=== PATIENT | female | born 1970 | race Caucasian/White ===

== ENCOUNTER 2024-02-09 14:12 | Emergency (ER) | payer OTHER, SELFPAY ==
[2024-02-09] VITALS (13 sets, daily range): BP systolic 140–153; BP diastolic 70–91; PULSE 75–85; RESP 16–18; TEMP 36.4; O2SAT 68–100
--- NOTE | ~2024-02-09 | CT_ITS ---
EXAMINATION: CT foot LT wo con DATE: 02/09/2024 16:24 INDICATION: Left foot injury. TECHNIQUE: Computed tomography (CT) of the left foot was performed without intravenous contrast. Auto mated exposure control and iterative reconstruction technique were employed. The dose-length product was 447.04 mGy-cm. COMPARISON: Left foot radiographs 02/09/2024 FINDINGS: Bone alignment is normal. There is a nondisplaced transverse fracture of tuft of first dist al phalanx. There is a nondisplaced oblique fracture of second distal phalanx. There is severe osteoa rthritis of first and second tarsometatarsal joints and moderate osteoarthritis of third tarsometatar federica joint. There is severe osteoarthritis of calcaneal cuboid joint. There is moderate osteoarthritis of the ankle joint and talonavicular joint and mild osteoarthritis of many of the midfoot joints and interphalangeal joints. There are enthesophytes at the posterior and plantar aspects of calcaneal tu berosity. There are dystrophic calcifications about the ankle joint. There are foci of chronic hetero topic ossification distal to medial malleolus. IMPRESSION: 1. Nondisplaced transverse fracture of tuft of first distal phalanx. 2. Nondisplaced oblique fracture of second distal phalanx. 3. Polyarticular osteoarthritis. Reviewed, dictated and finalized at location A.
--- NOTE | ~2024-02-09 | XR_ITS ---
EXAMINATION: XR ankle LT min 3V, XR foot LT min 3V DATE: 02/09/2024 14:42 INDICATION: Crushing injury to the left foot and ankle TECHNIQUE: 1. Anteroposterior, mortise, additional oblique and lateral view of the left ankle were obtained. 2. Dorsoplantar, two oblique and lateral views of the left foot were obtained. COMPARISON: None. FINDINGS: Alignment of the left foot and ankle is normal. No fracture. Minimal to mild osteoarthritis at a few of the tarsal metatarsal, metatarsophalangeal and interphalangeal joints. No erosions. Moderate-sized Achilles and plantar calcaneal spurs. Additional small enthesophyte at the dorsal neck the talus. No ankle joint effusion. The soft tissues are unremarkable. IMPRESSION: 1. Moderate-sized posterior calcaneal enthesophytes and minimal to mild polyarticular osteoarthritis in the left mid and forefoot. No acute osseous abnormality. Reviewed, dictated and finalized at location A. IMPRESSION: 1. Moderate-sized posterior calcaneal enthesophytes and minimal to mild polyart icular osteoarthritis in the left mid and forefoot. No acute osseous abnormalit y.
--- NOTE | 2024-02-09 14:19 | ED.LOWEXIN ---
HPI - Extremity Injury (Lower) General Chief Complaint: Extremity Injury, Lower Stated Complaint: FOOT INJURY Time Seen by Provider: 02/09/24 14:14 Source: patient and family Mode of arrival: ambulatory Limitations: no limitations History of Present Illness HPI Narrative: Patient is a 53-year-old female with a traumatic injury to the left foot after farming equipment dropped onto the left distal foot. This happened prior to arrival. She has some bleeding and toenail avulsions. No other injuries. patient is a diabetic type 2. Unknown tetanus status so we will give at this time. MD complaint: foot injury ( Left) Onset (ago): minute(s) (30) Injury: Left: foot ( all 5 toes/toenails) Type of Injury: blunt Place: home and street/outdoors Severity: severe Severity scale (1-10): 8 Relieving factors: nothing Exacerbating factors: weight bearing, movement and palpation Context: direct blow Associated symptoms: unable to bear weight Other symptoms: none Treatments prior to arrival: bandage Related Data Home Medications Medication Instructions Recorded Confirmed baclofen 10 mg tablet 10 mg PO DAILY 02/09/24 02/09/24 blood sugar diagnostic (OneTouch 02/09/24 02/09/24 Ultra Test strips) clonazepam 1 mg tablet 1 mg PO DAILY 02/09/24 02/09/24 furosemide 40 mg tablet 40 mg PO DAILY 02/09/24 02/09/24 insulin glargine 100 unit/mL 100 unit subcut DAILY 02/09/24 02/09/24 subcutaneous solution (Lantus U-100 Insulin) lactulose 10 gram/15 mL oral See Rx Instructions .Route .COMPLEX 02/09/24 02/09/24 solution midodrine 5 mg tablet 5 mg PO DAILY 02/09/24 02/09/24 potassium chloride 20 mEq 20 meq PO DAILY 02/09/24 02/09/24 tablet,extended release rifaximin 550 mg tablet (Xifaxan) 550 mg PO DAILY 02/09/24 02/09/24 spironolactone 25 mg tablet 25 mg PO DAILY 02/09/24 02/09/24 valacyclovir 500 mg tablet 500 mg PO DAILY 02/09/24 02/09/24 Allergies Allergy/AdvReac Type Severity Reaction Status Date / Time fluoxetine [From Prozac] Allergy Agitated Verified 02/09/24 14:30 Penicillins Allergy Hives Verified 02/09/24 14:30 Review of Systems Review of Systems: All systems reviewed & are unremarkable except as noted in HPI and below Constitutional: Constitutional: Reports no additional constitutional complaints Eyes: Eyes: Reports no additional eye complaints ENT: Reports system reviewed and no additional complaints, except as documented Cardiovascular: Cardiovascular: Reports no additional cardiovascular complaints Respiratory: Respiratory: Reports no additional respiratory complaints Gastrointestinal: Gastrointestinal: Reports no additional gastrointestinal complaints Genitourinary: Genitourinary: Reports no additional female genitourinary complaints Musculoskeletal: Musculoskeletal: Reports no additional musculoskeletal complaints Integumentary/Breasts: Skin/Breast: Reports system reviewed and no additional complaints, except as docu Neurologic: Reports system reviewed and no additional complaints, except as documented Psychiatric: Psychiatric: Reports no additional psychiatric complaints Endocrine: Endocrine: Reports no additional endocrine complaints Hematologic/Lymphatic: Hematologic/Lymphatic: Reports no additional hematologic/lymphatic complaints Allergic/Immunologic: Allergic/Immunologic: Reports no additional allergic/immunologic complaints Exam Const: General: healthy appearing Nutritional Appearance: well nourished Orientation/consciousness: patient oriented x3 HENMT: Head: normal to inspection Ears: external ears normal Face/Nose/Sinus: Normal external nose present Eyes: Conjunctivae: conjunctivae normal Pupils: Equal, round and reactive pupils present EOM: EOMs intact bilaterally Neck: Neck: normal visual inspection Chest: Chest palpation & inspection: normal inspection of the chest Resp: Effort & Inspection: normal respiratory effort and not labored Auscultation: clear to auscultation b
--- NOTE | 2024-02-09 14:22 | PC.NURSE ---
Ice pack applied to left foot. Foot elevated.
[2024-02-09 14:33] LABS: Basophils Absolute Auto 0.04 K/mm3 (0.00-0.10); Basophils Percent Auto 0.8 % (0.0-1.0); Eosinophils Absolute Auto 0.08 K/mm3 (0.02-0.50); Eosinophils Percent Auto 1.6 % (1.0-6.0); Hematocrit 43.6 % (35.0-49.0); Hemoglobin 15.1 g/dL (12.0-15.0); Immature Granulocyte Absolute 0.01 K/mm3 (0.00-0.00); Immature Granulocyte Percent A 0.2 % (0.0-0.0); Immature Platelet Fraction Pct 2.3 % (1.0-7.0); Lymphocytes Absolute Auto 1.19 K/mm3 (1.10-4.50); Mean Corpuscular HGB Conc 34.6 g/dL (32-36); Mean Corpuscular Hemoglobin 34.4 pg (27.0-31.0); Mean Corpuscular Volume 99.3 fL (78.0-102.0); Mean Platelet Volume 10.2 fl (9.2-11.8); Monocytes Absolute Auto 0.29 K/mm3 (0.10-0.90); Monocytes Percent Auto 5.8 % (2.0-11.0); Neutrophils Absolute Auto 3.35 K/mm3 (1.70-7.20); Neutrophils Percent Auto 67.6 % (50.0-70.0); Platelet Count Result 84 K/mm3 (150-420); Red Blood Count 4.39 M/mm3 (4.20-5.40); Red Cell Distribution Width 12.7 % (11.6-14.4)
[2024-02-09 14:46] LABS: Alanine Aminotransferase 29 U/L (14-59); Albumin Level 2.3 g/dL (3.4-5.0); Alkaline Phosphatase 181 U/L (46-116); Anion Gap 6 mmol/L (4-12); Aspartate Amino Transferase 38 U/L (15-37); Bilirubin,Total 1.8 mg/dL (0.00-1.00); Blood Urea Nitrogen 11 mg/dL (7-18); Calcium 8.6 mg/dL (8.5-10.1); Carbon Dioxide 30 mmol/L (21-32); Chloride 99 mmol/L (98-108); Estimated CRCL calculation 73 ml/min; Estimated Glomerular Filt Rate > 60; Glucose 286 mg/dL (70-99); INR 1.8; Osmolality Calculated 289 mOsm/kg (285-295); Partial Thromboplastin Time 28.7 Sec (23.9-30.70); Potassium 3.4 mmol/L (3.5-5.1); Prothrombin Time 18.6 Seconds (9.50-12.1); Sodium 135 mmol/L (136-145); Total Protein 6.2 g/dL (6.4-8.2)
[2024-02-09] MEDS: SODIUM CHLORIDE 0.9% IV 1,000 ML 999 ML IV CONT (14:46)
[2024-02-09] MEDS: HYDROmorphone HCL INJ (*CRX) 2 MG/ML VIAL 0.5 MG IV PUSH ×2 (14:46→15:39)
--- NOTE | 2024-02-09 15:20 | PC.NURSE ---
Pt resting in stretcher. Still having throbbing pain in left foot. ERP notified.
[2024-02-09] MEDS: VANCOMYCIN 1,250 MG/NS 250 ML 1,250 MG/250 ML BAG 166.67 MG IVPB ×2 (15:40→17:11)
--- NOTE | 2024-02-09 16:39 | PC.NURSE ---
Pt returned from CT. Pt used bedside commode. Returned to stretcher. Sprayed foot with Dermal wound cleanser and recovered with desirae.
[2024-02-09] MEDS: TETANUS,DIPHTHERIA,AC PERTUSSIS ADULT 0.5 ML (ADACEL) IM (16:57)
[2024-02-09] MEDS: MORPHINE SULFATE (*CRX) 4 MG/ML INJ IV PUSH ×2 (16:58→19:37)
--- NOTE | 2024-02-09 17:10 | PC.NURSE ---
Dressing applied to left foot. pt tolerated with pain.
[2024-02-09] MEDS: levoFLOXacin 750 MG/D5W 150 ML 750 MG/150 ML BAG 100 MG IVPB (18:45)
--- NOTE | 2024-02-09 18:55 | PC.NURSE ---
Pt resting comfortably in stretcher, awaiting ambulance for transfer.
--- NOTE | 2024-02-15 12:18 | PC.NURSE ---
Final blood culture report: no growth after 5 days, no further action or treatment needed.
== END 2024-02-09 19:49 | disposition short-term general hospital (02) ==
PROVIDERS: Emergency Provider Emergency Medicine; PCP Family Medicine
DX: S92.425A Nondisplaced fracture of distal phalanx of left great toe, initial encounter for closed fracture (principal); E11.9 Type 2 diabetes mellitus without complications; Z79.4 Long term (current) use of insulin; Z23 Encounter for immunization; W20.8XXA Other cause of strike by thrown, projected or falling object, initial encounter
CPT/HCPCS: 36415; 73610; 73630; 73700; 80053; 85025; 85055; 85610; 85730; 87040; 90471; 90715; 96365; 96367; 96375; 96376; 99285; J1170; J1956; J2270; J3370; J7030

== ENCOUNTER 2024-08-11 11:43 | Emergency (ER) | payer OTHER, SELFPAY ==
--- NOTE | 2024-08-11 12:46 | ED_ITS ---
HPI - CPR General Chief Complaint: Cardiac Arrest/CPR Stated Complaint: Ambulance Source: EMS Mode of arrival: EMS Limitations: clinical condition History of Present Illness HPI narrative: this is a 53-year-old female that went into cardiac arrest found by her caregiver and EMS was called patient was in full cardiac arrest and found to be in asystole CPR was started by a caregiver and continued by EMS till she arrived to the emergency department. Prior to arrival to the emergency department patient received epinephrine and bicarb and was continued in asystole. Patient was unresponsive. Patient had recently been diagnosed with pneumonia and history of liver disease and diabetes. MD complaint: stopped breathing and collapsed during rest Onset (ago): minute(s) Timing confirmed by: caregiver Place: home Bystander CPR performed: Yes AED applied by bystander/automotive consultant: No Shock advised: No Initial findings in the field: unresponsive ROSC in the field: No Associated injuries: No Related Data Home Medications ?Medication ?Instructions ?Recorded ?Confirmed ?Last Taken ?Type baclofen 10 mg tablet 10 mg PO DAILY 02/09/24 02/09/24 Unknown History blood sugar diagnostic (OneTouch 02/09/24 02/09/24 Unknown History Ultra Test strips) clonazepam 1 mg tablet 1 mg PO DAILY 02/09/24 02/09/24 Unknown History furosemide 40 mg tablet 40 mg PO DAILY 02/09/24 02/09/24 Unknown History insulin glargine 100 unit/mL 100 unit subcut DAILY 02/09/24 02/09/24 Unknown History subcutaneous solution (Lantus U-100 Insulin) lactulose 10 gram/15 mL oral See Rx Instructions .Route .COMPLEX 02/09/24 02/09/24 Unknown History solution midodrine 5 mg tablet 5 mg PO DAILY 02/09/24 02/09/24 Unknown History potassium chloride 20 mEq 20 meq PO DAILY 02/09/24 02/09/24 Unknown History tablet,extended release rifaximin 550 mg tablet (Xifaxan) 550 mg PO DAILY 02/09/24 02/09/24 Unknown History spironolactone 25 mg tablet 25 mg PO DAILY 02/09/24 02/09/24 Unknown History valacyclovir 500 mg tablet 500 mg PO DAILY 02/09/24 02/09/24 Unknown History Allergies Allergy/AdvReac Type Severity Reaction Status Date / Time fluoxetine (From Prozac) Allergy Agitated Verified 02/09/24 14:30 Penicillins Allergy Hives Verified 02/09/24 14:30 Review of Systems Review of Systems: All systems reviewed & are unremarkable except as noted in HPI and below ROS unobtainable: Yes unobtainable due to medical condition Cardiovascular: Comments: Asystole Respiratory: Comments: for respiratory distress being bagged with bag mask valve Neurologic: Comments: unresponsive [facility] Past Medical History Medical History Diabetes mellitus Pneumonia Exam Const: General: ill appearing Nutritional Appearance: obese HENMT: Other: pupils fixed and dilated bilaterally Eyes: Other: pupils fixed and dilated bilaterally Neck: Other: cyanotic Chest: Chest palpation & inspection: abnormal inspection of the chest Resp: Other: not breathing Cardio: Other: asystole GI: Other: distended Skin: Other: cyanotic Neuro: Other: unresponsive Course Course Emergency Course: patient presented to the ER in full cardiac arrest and rhythm asystole did receive 3 epinephrine in the field was brought in with CPR being performed and oxygen with bag-mask, an additional 3 epinephrine were given and 1 bicarb patient has some not breathing and rhythm was asystole. Patient was found in the field approximately 1104 a.m. and code continued to arr ival to the emergency department and continued and additional 35minutes and 3 appy and 1 bicarb were given and a code was called at 11:54 a.m.. Critical Care Time Critical Care Time Critical Care Time: Yes Total Critical Care Time: 35 Discharge Plan Discharge Clinical Impression: Cardiac arrest Patient Disposition: Condition: Terminal Patient Language: Tunisian Prescriptions: No Action furosemide 40 mg tablet 40 mg PO DAILY insulin glargine [Lantus U-100 Insulin] 100 unit/mL solution 100 unit SUBCUT DAILY clonazepam 1 mg tablet 1 mg PO DAILY midodrine 5 mg tablet 5 mg PO DAILY (DME) OneTouch Ultra Test Strip MISCELLANEOUS valacyclovir 500 mg tablet 500 mg PO DAILY spironolactone 25 mg tablet 25 mg PO DAILY baclofen 10 mg tablet 10 mg PO DAILY lactulose 10 gram/15 mL solution See Rx Instructions .ROUTE .COMPLEX Rx Instructions: Take 45 ML By Mouth 4 times per day Xifaxan 550 mg tablet 550 mg PO DAILY potassium chloride 20 mEq tablet extended release 20 meq PO DAILY Follow-up/Referrals: Tripp,MD Damian [Primary Care Provider] - Time of Disposition: 12:53
--- NOTE | 2024-08-11 12:57 | PC.NURSE ---
4598 ANGELITO MORTON NOTIFIED OF HER MOTHERS BY DR YE RN SPOKE WITH DAUGHTER VERBAL CONSENT GIVEN TO ALSO NOTIFY FRIEND THAT CAME IN WITH PT OF HER ANGELITO ALSO GAVE PERMISSION FOR [facility] TO TAKE PT AND NOTIFY HER
--- OUTSIDE RECORDS SUMMARY | 2024-08-11 13:16 | XMS_ITS | Encounter Summary ---
Author Organization [facility] Address [address] [place] [address] Care Team Providers Care Manager Chinese Name Role Phone Pro Charlton MD Primary Care Provider [phone] Stefanie Arechiga RN Unavailable [phone] Pro Charlton MD Primary Care Provider [phone] Pro Charlton MD Primary Care Provider [phone] Damian Almaguer MD Primary Care Provider [phone] Encounter Details Date Type Department Care Team (Late st Contact Info) Description 12/25/2017 Nutrition [facility] [address] [place] [address]/ADRIANE Social History Tobacco Use Types Packs/Day Years Used Date Smoking Tobacco: Former Cigarettes Smokeless Tobacco: Former Alcohol Use Standard Drinks/Week Comments No 0 (1 standard drink = 0.6 oz pur e alcohol) Sex and Gender Information Value Date Recorded Sex Assigned at Not on file Gender Identity Female 10/01/2017 8:26 AM CDT Sexual Orientation Not on file documented as of this encounter Functional Status Functional Status Response Date of Assess ment Is person deaf or have serious hearing difficult y? No 10/01/2017 Is person blind or have serious difficulty seein g? No 10/01/2017 Does person have serious dif ficulty walking/climbing stairs? No 10/01/2017 Cognitive Status Response Date of Assessm ent Does person have difficulty concentrating/remembering/making decisions? No 10/01/2017 documented as of this encounter Progress Notes * Miranda Abrams, WYATT/ADRIANE - 12/25/2017 5:01 PM CDT Liver Transplant Nutrition Evaluation Domenica Rivera Female, 47 y.o., 1970 Gender Identity: Female Date of Interview: 12/14/17 Interviewed in person or over the phone: in person Last Wt: *178 lb Last Ht: *5' 7 BMI: 27.88 kg/m?? Pt is aware of current BMI Hand Diplomatic Interpreter (all liver patients): 33.2, normal for age and gender Wt hx: Wt Readings from Last 3 Encounters: 12/24/17 178 lb 12/23/17 178 lb 11.2 oz 12/17/17 180 lb 3.2 oz Exercise: Reports: Stays active, no exercise regimen Nutrition Related PMH: Other ascites Alcoholic cirrhosis Current Diet: Trying to comply to fluid restriction Previously educated on diet? yes Appetite: no concerns Meals per day: 1 ETOH Intake: None, quit Apr 2017 Recent n/v? N, constipation Recent taste changes? unknown Comments re: labs: Recent Labs Component Name 12/24/17 0920 HGBA1C 5.9 EAG 123 . Recent Labs Component Name 12/24/17 0920 12/17/17 0919 11/19/17 0910 POTASSIUM 3.5 3.6 3.5 CO2 27 29 23 BUN 12 10 17 CREATININE 0.6 0.8 0.8 CALCIUM 9.1 8.7 8.3* ALKPHOS 118 119 126 ALT 23 19 21 AST 42* 38* 41* EGFR >60 >60 >60 . Recent Labs Component Name 12/24/17 0920 CHOL 112 TRIG 71 HDL 34* LDLCALC 64 .No results for input(s): SODIUM in the last 86660 hours. Sodium = 138 Food Allergies/Intolerances:NKFA Vitamins/Supplements/Relevant Medications: Insulin Glargine (LANTUS SC) Inject 30 Units subcutaneously at bedtime ?? esomeprazole (NEXIUM) 40 MG capsule Take 40 mg by mouth 2 times daily,before breakfast and supper ?? diphenhydrAMINE (BENADRYL) 25 MG tablet Take 50 mg by mouth BID. ?? valACYclovir (VALTREX) 500 MG tablet Take 500 mg by mouth DAILY. ?? cefdinir (OMNICEF) 300 MG capsule Take 300 mg by mouth DAILY. ?? midodrine (PROAMATINE) 5 MG tablet Take 5 mg by mouth TID. ?? carBAMazepine (TEGRETOL) 200 MG tablet Take 200 mg by mouth BID. Patient not taking: Reported on 12/23/2017 ?? propranolol (INDERAL) 20 MG tablet Take 20 mg by mouth DAILY. ?? baclofen (LIORESAL) 10 MG tablet Take 10 mg by mouth BID. Patient taking differently: Take 10 mg by mouth 3 times daily ?? clonazePAM (KLONOPIN) 0.5 MG tablet Take 0.5 mg by mouth. Was patient educated on a diet? See recommendations/interventions 24 Hour Recall/Food Frequency: vegetables, sweets, chicken, pork, yogurt, Boost 1 every couple of days BMI= 27.88, overweight. Pt is considered to be an ok candidate for a Liver Transplant from a Nutrition standpoint. Recommendations/Interventions/Pt instructed: 1. Compliance to fluid restriction 2. Boost daily 3. Pt given Cirrhosis Nutrition therapy guidelines with Rd contact information for f/u prn. documented in this encounter Plan of Treatment Upcoming Encounters Date Type Department Care Team (Late st Contact Info) Description 10/12/2024 11:00 AM CDT Office Visit [facility] [address] [place] [address], [place] [phone] Marla Soto PA-C [address] [address] [facility] [place] [phone] documented as of this encounter Visit Diagnoses Not on filedocumented in this encounter Care Teams Manager Chinese Relationship Specialty Start Date End Date Pro Charlton MD [address] [place] [phone] PCP - General 07/06/17 07/16/20 Pro Charlton MD [address] [place] [phone] PCP - General 07/17/20 06/10/21 Pro Charlton MD [address] [place] [phone] PCP - General 06/11/21 10/07/22 Damian Almaguer MD [address] [place] [phone] PCP - General 10/08/22 Stefanie Arechiga RN Counter Tender 08/04/18 documented as of this encounter
--- OUTSIDE RECORDS SUMMARY | 2024-08-11 13:17 | XMS_ITS | Encounter Summary ---
Author Organization [facility] Address [address] [place] [id number] Care Team Providers Care Wedger Machine Name Role Phone Pro Charlton MD Primary Care Provider [phone] Damian Almaguer MD Primary Care Provider Encounter Details Date Type Department Care Team (Late st Contact Info) Description 11/13/2018 Abstract [facility] CONVERSION [address] [place] [address] , Generic Conversion, Social History Tobacco Use Types Packs/Day Years Used Date Smoking Tobacco: Never Assessed Comments Unknown Sex and Gender Information Value Date Recorded Sex Assigned at Female 01/06/2023 7:39 PM CDT Legal Sex Female 9:18 PM PRODUCT MARKETING SPECIALIST Gender Identity Female 01/06/2023 7:39 PM CDT Sexual Orientation Straight 01/06/2023 7: 39 PM CDT documented as of this encounter Plan of Treatment Not on file documented as of this encounter Visit Diagnoses Not on filedocumented in this encounter Additional Health Concerns Infection Onset Date Last Indicated Resolved Time COVID-19 Rule Out 10/10/2020 10/10/2020 10/10/2020 1:45 AM CDT documented as of this encounter Care Teams Wedger Machine Relationship Specialty Start Date End Date Pro Charlton MD [address] [place] [phone] PCP - General FAMILY PRACTICE 06/29/19 09/26/20 Damian Almaguer MD [address] [place] [phone] PCP - General FAMILY PRACTICE 09/27/20 documented as of this encounter
--- OUTSIDE RECORDS SUMMARY | 2024-08-11 13:17 | XMS_ITS | Clinical Summary ---
Author Organization [facility] Address [facility] [place] [address] Care Team Providers Care Table Tender Name Role Phone Damian Mcneal MD Primary Care Provider Allergies Active Allergy Reactions Criticality Noted Date Comments Tape Unknown 08/17/2019 Ibuprofen GI Upset 08/17/2019 Paroxetine Other (see comment) 02/28/2022 Increased irritability Penicillins Unknown 08/17/2019 Medications furosemide 40 MG tablet Take 1 tablet (40 mg total) by mouth daily. 9 Active valACYclovir 500 MG tablet Take 1 tablet (500 mg total) by mouth daily. 8 Active LANTUS 100 UNIT/ML injection (VIAL) 40 Units nightly at bedtime. PT STATES DOSE DEPENDS ON BLOODSUGAR 0 Active esomeprazole 40 MG capsule Take 1 capsule (40 mg total) by mouth 2 (two) times a day. Active multi vitamin/minerals tablet Take 1 tablet by mouth daily. Active clonazePAM (KLONOPIN) 1 MG tabletIndications :Facial myokymia One tablet daily as needed for facial twitching 30 tablet 4 2 Active baclofen (LIORESAL) 10 MG tabletIndications :Facial myokymia TAKE 1 TABLET BY MOUTH THREE TIMES DAILY NEEDED FOR MUSCLE SPAMS. THis is a 90-d supply 270 tablet 3 2 Active midodrine (PROAMATINE) 5 MG tablet Take 1 tablet (5 mg total) by mouth daily as needed. 30 tablet 2 Active spironolactone (ALDACTONE) 25 MG tablet Take 1 tablet (25 mg total) by mouth daily. Active calcium carb-cholecalcife rol (CALTRATE+D) 600-10 MG-MCG Tab tablet 1 tablet daily. Active potassium chloride CR (KLOR-CON M) 20 MEQ tablet Take 1 tablet (20 mEq total) by mouth 2 (two) times daily. 3 Active Calcium Carbonate-Vit D-Min (CALCIUM 600+D PLUS MINERALS) 600-400 MG-UNIT Tab Take 1 tablet by mouth 2 (two) times daily. 3 Active Multiple Vitamin (ONE DAILY MULTIVITAMIN ADULT) Tab Take 1 tablet by mouth daily. 3 Active lactulose (CHRONULAC) 10 GM/15ML solution Take 45 mLs by mouth 4 (four) times daily. 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 (08/18/2019): Impression - [id number]aird: Poorly controlled 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 Benign hypertension 10/10/2016 Chronic hepatitis C virus infection (CMS/HCC HHS /HCC) 10/10/2016 Overview (08/18/2019): 01/24/19 Fibroscan CAP 240, E 43.1kPa Diabetes mellitus, type 2 (CMS/HCC HHS/HCC) 0510/2016 GERD (gastroesophageal reflux disease) 7 Resolved Problems Problem Noted Date Diagnosed Date Resolved Date Hepatic encephalopathy (CMS/HCC HHS/HCC) 01/06/2023 01/07/2023 Hyperammonemia ([facility]/HCC) 12/16/2020 01/07/2023 Hepatic encephalopathy ([facility]) 10/10/2020 10/11/2020 Hypotension 08/18/2019 08/21/2019 Hypokalemia 08/18/2019 08/21/2019 Leukocytosis 08/18/2019 08/21/2019 Encounters Date Type Department Care Team Description 08/10/2024 3:45 PM DIRECTOR HOUSEKEEPING Hospital Encounter [facility] [address] [place] [address] Damian Mcneal MD Arrived 08/10/2024 Travel from Last 3 Months Family History Medical History Relation Comments No Known Problems Brother No Known Problems Father No Known Problems Maternal Aunt No Known Problems Maternal Grandfather No Known Problems Maternal Grandmother No Known Problems Maternal Uncle No Known Problems Mother No Known Problems Other No Known Problems Paternal Aunt No Known Problems Paternal Grandfather No Known Problems Paternal Grandmother No Known Problems Paternal Uncle No Known Problems Sister Relation Status Comments Brother Father Maternal Aunt Maternal Grandfather Maternal Grandmother Maternal Uncle Mother Other Paternal Aunt Paternal Grandfather Paternal Grandmother Paternal Uncle Sister Social History Tobacco Use Types Packs/Day Years Used Date Smoking Tobacco: Some Days Cigarettes Last attempted to quit: 09/10/2018 Smokeless Tobacco: Never Tobacco Cessation:Ready to Q uit: Not Asked; Counseling Given: Not Answered Comments:devin is no longer smoking Alcohol Use Standard Drinks/Week Comments Not Currently 0 (1 standard drink = 0.6 oz pur e alcohol) Humiliation, Afraid, Rape, and Kick questionnair e Answer Date Recorded Within the last year, have y ou been afraid of your partner or ex-partner? No 01/06/2023 Within the last year, have y ou been humiliated or emotionally abused in other ways by your partner or ex-partner? No Within the last year, have y ou been kicked, hit, slapped, or otherwise physically hurt by your partner or ex-partner? No 01/06/2023 Within the last year, have y ou been raped or forced to have any kind of sexual activity by your partner or ex-partner? No 01/06/2023 Social Connection and Isolat ion Panel [NHANES] Answer Date Recorded In a typical week, how many times do you talk on the phone with family, friends, or neighbors? More than three times a week 01/06/2023 How often do you get togethe r with friends or relatives? More than three times a week 01/06/2023 How often do you attend chur or jainism services? More than 4 times per year 01/06/2023 Do you belong to any clubs o r organizations such as cheondoism groups, unions, fraternal or athletic groups, or school groups? No 01/06/2023 How often do you attend meet ings of the clubs or organizations you belong to? Never 01/06/2023 Are you , , di vorced, , never , or living with a partner? 01/06/2023 AUDIT-C Answer Date Recorded Q1: How often do you have a drink containing alcohol? Never 01/06/2023 Q2: How many drinks containi ng alcohol do you have on a typical day when you are drinking? Patient does not drink Q3: How often do you have si x or more drinks on one occasion? Never 01/06/2023 Overall Financial Resource Strain (CARDIA) Answe r Date Recorded How hard is it for you to pa y for the very basics like food, housing, medical care, and heating? Somewhat hard 01/06/2023 PHQ-2 Answer Date Recorded PHQ-2 Score - If the patient scores above 3, please move on to questions 3-9 0 02/14/2022 [facility] - Occupational Stress Questionnaire Answer Date Recorded Do you feel stress - tense, restless, nervous, or anxious, or unable to sleep at night because your mind is troubled all the time - these days? To some extent 01/06/2023 Exercise Vital Sign Answer Date Recorde d On average, how many days pe r week do you engage in moderate to strenuous exercise (like a brisk walk)? 2 days 01/06/2023 On average, how many minutes do you engage in exercise at this level? 20 min 01/06/2023 Hunger Vital Sign Answer Date Recorded Within the past 12 months, y ou worried that your food would run out before you got the money to buy more. Sometimes true Within the past 12 months, t he food you bought just didn't last and you didn't have money to get more. Sometimes true 06/2022 PRAPARE - Transportation Answer Date Re corded In the past 12 months, has l ack of transportation kept you from medical appointments or from getting medications? No 06/2022 In the past 12 months, has l ack of transportation kept you from meetings, work, or from getting things needed for daily living? No 01/06/2023 Housing Stability Vital Sign Answer Song e Recorded In the last 12 months, was t here a time when you were not able to pay the mortgage or rent on time? No 01/06/2023 In the last 12 months, how many places have you lived? 1 01/06/2023 In the last 12 months, was t here a time when you did not have a steady place to sleep or slept in a residential (including now)? No 01/06/2023 Comments No Sex and Gender Information Value Date Recorded Sex Assigned at Female 01/06/2023 7:39 PM CDT Legal Sex Female 9:18 PM DIRECTOR HOUSEKEEPING Gender Identity Female 01/06/2023 7:39 PM CDT Sexual Orientation Straight 01/06/2023 7: 39 PM CDT Last Filed Vital Signs Vital Sign Reading Time Taken Comments Blood Pressure 131/62 02/10/2024 12:30 AM CDT Pulse 87 02/10/2024 12:30 AM CDT Temperature 36.6 C (97.8 F) 02/09/2024 11:57 PM CDT Respiratory Rate 14 02/10/2024 12:30 AM CDT Oxygen Saturation 94% 02/10/2024 12:30 AM CDT Inhaled Oxygen Concentration - - Weight 96.6 kg (213 lb) 01/06/2023 7:00 PM CDT Height 160 cm (5' 3 ) 01/06/2023 7:00 PM CDT Body Mass Index 37.73 01/06/2023 7:00 PM CDT Plan of Treatment Health Maintenance Due Date Last Done Comments Colorectal Cancer Screening Colonoscopy (10 Years) 1970 Kidney Health Evaluation 1970 Lipid Panel 1970 Annual Physical 1973 Diabetes: Retinopathy Eye Exam 1988 DTaP, Tdap and Td Vaccines (1 - Tdap) 1989 Hepatitis B Vaccines (3 of 3 - Hep B Twinrix 3-dose series) 01/27/2018 08/27/2017, 07/23/2017 Mammogram Screening 12/25/2019 12/24/2017 Zoster Vaccines (1 of 2) 2020 Hemoglobin A1C 01/27/2022 07/30/2021, 08/18/2019 Pneumococcal Vaccine: Pediatrics (0 to 5 Years) and At-Risk Patients (6 to 64 Years) (2 of 2 - PCV) 03/02/2023 03/02/2022, 04/12/2007 COVID-19 Vaccine (1 - season) 2024 Influenza Adult (#1) 2024 Hepatitis C Completed 09/18/2022, 09/06, 08/26/2022, Additional history exists Meningococcal B Vaccine Aged Out No l onger eligible based on patient's age to complete this topic Meningococcal Vaccine Aged Out No michelle eyad eligible based on patient's age to complete this topic RSV Immunizations Under 20 Months Aged Out No longer eligible based on patient's age to complete this topic Goals Goal Patient Goal Type Associated Problems Recent Progress Patient-Stated? Author Safety Patient/family will have appropriate support at home upon discharge Lifestyle Jessa Pritchard pizza baker Procedure Name Priority Date/Time Associated Diagnosis Comments XR CHEST PA+LAT Routine 08/10/2024 3:58 PM DIRECTOR HOUSEKEEPING Acute bronchitis HEMOGLOBIN, GLYCOSYLATED Routine 07/30/2021 from Last 3 Months or Most Recently Relevant to Health Maintenance Results * XR CHEST PA+LAT (08/10/2024 3:58 PM DIRECTOR HOUSEKEEPING) Anatomical Region Laterality Modality Chest Radiographic Harmony ging 08/10/2024 4:00 PM DIRECTOR HOUSEKEEPING Impressions 08/10/2024 4:06 PM DIRECTOR HOUSEKEEPING IMPRESSION: New diffuse bilateral pulmonary infiltrates-pneumonia versus pulmonary edema. No consolidation. Clinical correlation required. Ordered By: DAMIAN MCNEAL Interpreted By: Archie Mcneill MD, 08/10/2024 4:00 PM Narrative 08/10/2024 4:06 PM DIRECTOR HOUSEKEEPING [address] [place] [address] Examination: Two-view chest Exam time: 1536 hours. Clinical history: Cough. Dyspnea. Weakness. Comparison: 10/10/2020, 06/03/2017. Technique: PA and lateral views Findings: Allowing for differences in projection and rotation, the cardiomediastinal silhouette is stable. The heart remains within normal limits for size. Pulmonary vascularity appears within normal limits. There are new diffuse hazy infiltrates bilaterally. The relative contributions of pneumonia and pulmonary edema to this appearance are uncertain. Atypical pneumonia is a consideration. There is no segmental or lobar consolidation. No pleural effusions are seen. The bony thorax is stable. Procedure Note Archie Mcneill MD - 08/10/[address] [place] [address] Examination: Two-view chest Exam time: 1536 hours. Clinical history: Cough. Dyspnea. Weakness. Comparison: 10/10/2020, 06/03/2017. Technique: PA and lateral views Findings: Allowing for differences in projection and rotation, thecardiomediastinal silhouette is stable. The heart remains within normallimits for size. Pulmonary vascularity appears within normal limits. Thereare new diffuse hazy infiltrates bilaterally. The relative contributionsof pneumonia and pulmonary edema to this appearance are uncertain.Atypical pneumonia is a consideration. There is no segmental or lobarconsolidation. No pleural effusions are seen. The bony thorax is stable. IMPRESSION: New diffuse bilateral pulmonary infiltrates-pneumonia versus pulmonaryedema. No consolidation. Clinical correlation required. Ordered By: DAMIAN MCNEAL Interpreted By: Archie Mcneill MD, 08/10/2024 4:00 PM us Damian Mcneal MD GENERAL IMAGING Final Resul t * HEMOGLOBIN, GLYCOSYLATED (07/30/2021) HGB A1C 6.1 % 07/30/2021 us Doc [facility] Final Result from Last 3 Months or Most Recently Relevant to Health Maintenance Insurance [employer] Advance Directives * Full Code (Latest Code Status on File) Date Activated Date Inactivated Comments 01/07/2023 7:36 AM 01/07/2023 5:58 PM * Full Code Date Activated Date Inactivated Comments 07/06/2022 8:50 PM 07/07/2022 3:15 PM * Full Code Date Activated Date Inactivated Comments 02/28/2022 11:09 PM 03/03/2022 4:51 PM * Full Code Date Activated Date Inactivated Comments 04/13/2021 4:21 PM 04/14/2021 5:06 PM * Full Code Date Activated Date Inactivated Comments 12/16/2020 7:40 PM 12/17/2020 2:32 PM Care Teams Table Tender Relationship Specialty Start Date End Date Damian Mcneal MD [address] [place] [phone] PCP - General FAMILY PRACTICE 09/27/20
--- OUTSIDE RECORDS SUMMARY | 2024-08-11 13:17 | XMS_ITS | Clinical Summary ---
Author Organization [facility] Address [address] [place] [address] Care Team Providers Care Television Presenter Name Role Phone Stefanie Arechiga RN Unavailable Damian Almaguer MD Primary Care Provider [phone] Source Comments [facility] and Associated Physician Practices is amultiple site organization consisting of ambulatory clinics and hospital sitesin [place], [place], [place] and [place]. This disclosure is being madepursuant to the Care Everywhere program and may not contain all information available regarding this patient. Last updated 18.[facility] Allergies Active Allergy Reactions Criticality Noted Date Comments Adhesive Sensitivity Rash Medium 09/17/2017 Enovarx-Ibuprofen Other Low 06/23/2017 ulcers Fluoxetine Other Low 06/23/2017 Makes me angry Penicillins Other Low 06/23/2017 Redness and itching Medications * Be aware that medications may not be up to date on this document. Alwaysverify current medications with the patient. Medication Sig Dispensed Refills Start Date End Date Status diphenhydrAMINE (BENADRYL) 25 MG tablet Take 2 (two) tablets by mouth BID 08/27/2017 Active valACYclovir (VALTREX) 500 MG tablet Take 1 (one) tablet by mouth DAILY 08/20/2017 Active midodrine (PROAMATINE) 5 MG tablet Take 1 (one) tablet by mouth once daily 06/23/2017 Active esomeprazole (NEXIUM) 40 MG capsule Take 1 (one) capsule by mouth 2 times daily, before breakfast and supper Active multivitamin daily tablet Take 1 (one) tablet by mouth daily with food Active potassium chloride ER (KLOR-CON) 20 MEQ tablet Take 1 (one) tablet by mouth 2 times daily Active lactulose (CHRONULAC) 10 GM/15ML solution Take 30 mL by mouth 3 times daily 300 mL 2 08/06/2018 Active Additional Information Patient taking differently:20 g Oral2 TIMES DAILY PRN, Reported on 04/22/2023 baclofen (LIORESAL) 10 MG tablet Take 1 (one) tablet by mouth 3 times daily May cause drowsiness. Active clonazePAM (KLONOPIN) 1 MG tablet Take 1 (one) tablet by mouth nightly as needed for Anxiety Active furosemide (LASIX) 40 MG tablet Take 2 (two) tablets by mouth once daily Active LANTUS vial 45 (forty five) Units 2 times daily 12/29/2020 Active calcium carbonate (Caltrate) 600 MG tablet Take 1 (one) tablet by mouth daily with food Active spironolactone (Aldactone) 25 MG tablet Take 1 (one) tablet by mouth once daily Active rifAXIMin (Xifaxan) 550 MG tablet Take 1 (one) tablet by mouth 2 times daily Active Active Problems Problem Noted Date Diagnosed Date Alcohol dependence, in remission 12/05/2022 04/22/2023 Overview (04/22/2023): Last Assessment & Plan: Condition: Stable Length (duration) of remission: unknown In the event of cravings or relapse, resource reviewed: [facility] Follow up Provider: PCP Follow up in: If symptoms worsen or fail to improve Nicotine dependence, cigarettes, uncomplicated 0 12/02/2022 04/22/2023 Overview (04/22/2023): Last Assessment & Plan: Condition: stable Follow up in: if symptoms worsen or fail to improve Hepatic encephalopathy 06/11/2021 Protein-calorie malnutrition 06/11/2021 Altered mental status 12/16/2020 Hyperammonemia 12/16/2020 04/22/2023 Overview (04/22/2023): Last Assessment & Plan: Condition: stable Follow up in: if symptoms worsen or fail to improve Last Assessment & Plan: Condition: stable Follow up in: if symptoms worsen or fail to improve Acute cystitis without hematuria 10/10/2020 S/P TIPS (transjugular intrahepatic portosystemi c shunt) 07/17/2020 Thrombocytopenia 08/04/2018 Other ascites 07/16/2017 Alcoholic cirrhosis 06/23/2017 Chronic hepatitis C virus infection 10/10/2016 Overview (03/13/2020): 01/24/19 Fibroscan CAP 240, E 43.1kPa 01/24/19 Fibroscan CAP 240, E 43.1kPa GERD (gastroesophageal reflux disease) 7 Benign hypertension 10/22/2013 Overview (03/13/2020): Overview: Hypertension Diabetes mellitus, type 2 10/22/2013 Overview (03/13/2020): Overview: Diabetes mellitus Polyneuropathy 10/22/2013 Overview (03/13/2020): Overview: Polyneuropathy Alcoholic cirrhosis of liver with ascites Encounters Date Type Department Care Team Description 06/24/2024 Orders Only [facility] - [facility] [address] [facility] [place] [address] Marla Soto, PA-C Alcoholic cirrhosis of liver with ascites (HCC); Thrombocytopenia (HCC); Gastroesophageal reflux disease, unspecified whether esophagitis present; S/P TIPS (transjugular intrahepatic portosystemic shunt); Protein-calorie malnutrition, unspecified severity (HCC) from Last 3 Months Immunizations Name Administration Dates Next Due HEP A/HEP B 08/27/2017,07/23/2017 PNEUMOCOCCAL PCV20 CONJ VAC IM 03/02/2022 Family History Medical History Relation Name Comments None Known Daughter Status: Alive None Known Father Status: Alive Alcohol abuse Mother Status: Deceas ed Cancer - Ovarian Mother Drug Abuse Mother None Known Sister Status: d Relation Name Status Comments Daughter Father Mother Sister Social History Tobacco Use Types Packs/Day Years Used Date Smoking Tobacco: Some Days Cigarettes 3 30 Smokeless Tobacco: Former Tobacco Cessation:Ready to Q uit: Not Asked; Counseling Given: Not Answered Comments:quit 2 yrs ago Alcohol Use Standard Drinks/Week Comments No 0 (1 standard drink = 0.6 oz pur e alcohol) quit Apr 2017 Sex and Gender Information Value Date Recorded Sex Assigned at Not on file Gender Identity Female 10/01/2017 8:26 AM CDT Sexual Orientation Not on file Last Filed Vital Signs Vital Sign Reading Time Taken Comments Blood Pressure 145/88 04/06/2024 11:30 AM CDT Pulse 85 04/06/2024 11:30 AM CDT Temperature 37.2 C (98.9 F) 10/07/2023 11:24 AM CDT Respiratory Rate 20 04/22/2023 12:0 4 PM VOCATIONAL TRAINER Oxygen Saturation 99% 04/06/2024 11: 30 AM CDT Inhaled Oxygen Concentration - - Weight 110.3 kg (243 lb 3.2 oz) 024 11:30 AM CDT Height 170.2 cm (5' 7 ) 04/06/2024 11:3 0 AM CDT Body Mass Index 38.09 04/06/2024 11:30 AM CDT Plan of Treatment Upcoming Encounters Date Type Department Care Team (Late st Contact Info) Description 10/12/2024 11:00 AM CDT Office Visit [facility] [place] [address] [place] [address], [place] [address] Marla Soto PA-C [address] [place] [address] [facility] [place] [address] Health Maintenance Due Date Last Done Comments COLOGUARD (AGES 45-75) - COLON CA SCREENING 1970 COLON MONITORING 1970 COLONOSCOPY - COLON CA SCREENING 1970 CT COLONOGRAPHY - COLON CA SCREENING 1970 Colorectal Cancer Screening 1970 FIT - COLON CA SCREENING 1970 FLEX SIG - COLON CA SCREENING 1970 DTAP/TDAP/TD VACCINES (1 - Tdap) 1989 PAP with HPV 2000 DIABETES-STATIN 2010 HEPATITIS B VACCINE (3 of 3 - Hep B Twinrix 3-dose series) 01/27/2018 08/27/2017, 07/23/2017 MAMMOGRAM 12/25/2019 12/24/2017 DIABETES RETINOPATHY SCREENING 03/13/2020 DIABETES-FOOT EXAM WITH MONOFILAMENT 03/13/2020 LUNG CANCER SCREENING 2020 ZOSTER VACCINE (1 of 2) 2020 DIABETES-HGB A1C 12/23/2023 06/24/2023, , 07/30/2021, Additional history exists COVID-19 VACCINE ( season) 2024 INFLUENZA VACCINE (#1) 2024 DEPRESSION SCREENING 06/08/2024 DIABETES - URINE PROTEIN SCREENING 06/08/2024 DIABETES-SERUM CREATININE 08/20/20242023, 06/24/2023, 04/14/2023, Additional history exists HIV SCREENING Completed 03/13/2020, 01/06, 12/24/2017 PNEUMOCOCCAL VACCINE 50+ Completed 03/02/2022 HEPATITIS C SCREENING Completed 08/22/2022 , 07/25/2022, 06/27/2022, Additional history exists HIB VACCINE Aged Out No longer eligi ble based on patient's age to complete this topic HPV VACCINE Aged Out No longer eligi ble based on patient's age to complete this topic MENINGOCOCCAL (Group B) VACCINE Aged Out No longer eligible based on patient's age to complete this topic MENINGOCOCCAL VACCINE Aged Out No michelle eyad eligible based on patient's age to complete this topic Goals Goal Patient Goal Type Associated Problems Recent Progress Patient-Stated? Author Medication Management General On track( 11:31 AM CDT) No Shilpa Santoro, RN Note: Expected end date: Ongoing Interventions: Take all medications as prescribed Let your doctor know right away about any changes in your medications Make sure to request a refill of your medication at least one week prior to your last dose Safety General On track( 11:31 AM CDT) No Es Andre, RN Note: Expected end date: ongoing Interventions: Your nurse will assess your risk for falls/injury each visit Make sure appropriate safety devices are available and within reach Be aware of medications that could predispose you to falling Wear non-skid/rubber sole footwear Wear glasses/hearing aid Use some light at night in your room Medical Devices Implanted Type Area Specialist Icu Device Identifier Shelf Expiration Date Model / Serial / Lot Stent Eprsth 6cm 8-10mm [employer]ock Vtr 2cm - [id number] Implanted:Qty: 1 on 08/03/2018 by Art Cerna MD at [facility] [employer] 05/28/2021 [id number] / [id number] / Procedures Procedure Name Priority Date/Time Associated Diagnosis Comments COMP MET PANEL (EXTERNAL RESULT ENTRY) Routine 08/21/2023 8:08 AM CDT HEMOGLOBIN A1C (EXTERNAL RESULT ENTRY) Routine 06/24/2023 8:30 AM VOCATIONAL TRAINER HEPATITIS C RNA QUANTITATIVE Routine 03/13/2020 12:50 PM CDT Alcoholic cirrhosis of liver with ascites (HCC) Thrombocytopenia (HCC) Chronic hepatitis C without hepatic coma (HCC) Elevated liver enzymes HIV-1 HIV-2 ANTIBODY W REFLX Routine 03/13/2020 12:50 PM CDT Alcoholic cirrhosis of liver with ascites (HCC) Thrombocytopenia (HCC) Chronic hepatitis C without hepatic coma (HCC) Elevated liver enzymes MAMMO BILAT SCREENING Routine 12/24/2017 1:15 PM CDT Pre-transplant evaluation for liver transplant Type 2 diabetes mellitus with hyperosmolarity without coma, unspecified whether mcfp insulin use (HCC) Alcoholic liver disease (HCC) Chronic hepatitis C with hepatic coma (HCC) from Last 3 Months or Most Recently Relevant to Health Maintenance Results * (ABNORMAL) COMP MET PANEL (EXTERNAL RESULT ENTRY) (08/21/2023 8:08 AM CDT) Glucose (EXTERNAL) 68(A) mg/dL OTHER LAB Sodium (EXTERNAL RESULT) 141 mmol/L OTHER LAB Potassium (EXTERNAL RESULT) 3.9 mmol/L OTHER LAB Chloride (EXTERNAL RESULT) 105 mmol/L OTHER LAB CO2 (EXTERNAL) 24 mmol/L OTHER LAB Calcium (EXTERNAL RESULT) 9.2 mg/dL OTHER LAB Anion Gap (EXTERNAL RESULT) OTHER LAB BUN (EXTERNAL RESULT) 13 mg/dL OTHER LAB Creatinine (EXTERNAL RESULT) 0.68 mg/dl OTHER LAB Alkaline Phosphatase (EXTERNAL RESULT) 172(A) U/L OTHER LAB ALT (EXTERNAL RESULT) 31 U/L OTHER LAB AST (EXTERNAL RESULT) 42 U/L OTHER LAB Protein Total (EXTERNAL RESULT) 6.2 gm/dL OTHER LAB Albumin (EXTERNAL RESULT) 3.0(A) gm/dL OTHER LAB Bilirubin Total (EXTERNAL RESULT) 1.7(A) mg/dL OTHER LAB eGFR MDRD (EXTERNAL RESULT) 105 mL/min/1.7 3m2 OTHER LAB eGFR (EXTERNAL) OTHER LAB Blood BLOOD SPECIMEN / Unknown 08/21/2023 8:08 AM CDT Historical Provider LAB - CHEMISTRY O TOMI OTHER LAB * (ABNORMAL) HEMOGLOBIN A1C (EXTERNAL RESULT ENTRY) (06/24/2023 8:30 AM VOCATIONAL TRAINER) Hemoglobin A1c (EXTERNAL RESULT) 6.7(A) % OTHER LAB Blood BLOOD SPECIMEN / Unknown 06/24/2023 8:30 AM VOCATIONAL TRAINER Historical Provider LAB - CHEMISTRY O RDERAИВАН OTHER LAB * HIV-1 HIV-2 ANTIBODY W REFLX (03/13/2020 12:50 PM CDT) HIV-1 Antibody Negative Negative 03/16/2020 11:06 PM CDT [facility]) HIV-2 Antibody Negative Negative 03/16/2020 11:06 PM CDT [facility]) Interpretation Negative 03/16/2020 11:06 PM CDT [facility]) Comment:See RNA Reflex. Blood BLOOD SPECIMEN / Unknown Lab Venipuncture / Unknown 03/13/2020 12:50 PM CDT 03/13/2020 1:07 PM CDT Narrative [facility] ([facility]) - 03/16/2020 11:06 PM CDT Performed at: - [facility] [address] [place], [place] [id number] Java Integration Developer: Jameson Durant PhD, Phone: [phone] Marla Ly Brittany STUBBS LAB - SEROLOGY ORDERABLES [facility] ([facility]) [address] [place] [address], [facility] * (ABNORMAL) HEPATITIS C RNA QUANTITATIVE (03/13/2020 12:50 PM CDT) [facility] Hepatitis C Virus Quant by PCR, Blood 1,058,273 (H) Not detected IU/mL 03/15/2020 4:47 PM CDT [facility] Hepatitis C RNA PCR, Interp Detected( A) Not Detected 03/15/2020 4:47 PM CDT [facility] Blood BLOOD SPECIMEN / Unknown Lab Venipuncture / Unknown 03/13/2020 12:50 PM CDT 03/13/2020 1:22 PM CDT Narrative [facility] - 03/15/2020 4:47 PM CDT The Hepatitis C viral (HCV) RNA analysis utilized a serum sample, real-time reverse molding and trim installer PCR, and is reported as Not Detected, Detected (<12 IU/mL), Quantity (IU/mL) or >100,000,000 IU/mL. The limit of quantitation of the assay is 12 IU/mL (100% of samples with this HCV RNA level were detected). The linear range is from 12 IU/mL to 100,000,000 IU/mL. Values less than 12 IU/mL are reported as Detected (<12 IU/mL). Values greater than 100,000,000 IU/mL are reported as > 100,000,000 IU/mL. The detection/quantitation of HCV RNA in serum is based on the isolation of HCV RNA with reverse molding and trim installer of genomic HCV RNA followed by real-time PCR in the presence of an unrelated RNA internal control. The internal control ensures that RNA is isolated, and that no general significant inhibitors of the RT-PCR process are present. The analysis was performed using a U.S. FDA approved test methodology ([employer] Real Time HCV). Marla Soto PA-C LAB - CHEMISTRY ORDERABLES [facility] [address] [place] [address], [facility] [phone] * MAMMO BILAT SCREENING (12/24/2017 1:15 PM CDT) Anatomical Region Laterality Modality Breast Bilateral Mammography 12/24/2017 4:05 PM CDT Impressions 12/24/2017 4:07 PM CDT IMPRESSION: 1.Left breast mass warrants additional evaluation. 2.No mammographic evidence of malignancy in right breast. ASSESSMENT: BI-RADS 0: Need additional imaging evaluation. RECOMMENDATION: Targeted left breast ultrasound and possible diagnostic mammogram. Our breast center will contact the patient to notify her of these results and schedule her follow-up imaging. This report was electronically signed by BUD BAGLEY M.D. on 12/24/2017 4:07 PM . Narrative 12/24/2017 4:07 PM CDT BILATERAL SCREENING MAMMOGRAM DATE: 12/24/2017. COMPARISON: This is the patient's baseline mammogram. No previous breast imaging studies are available for comparison. HISTORY: Screening mammogram. TECHNIQUE: Images were performed using 3D tomosynthesis images with reconstructed/synthetic 2D images and CAD analysis. BREAST COMPOSITION: There are scattered areas of fibroglandular density. FINDINGS: There is an oval mass with circumscribed margins in the lower inner quadrant of the left breast which warrants additional evaluation. Mass measures approximately 1.7 cm and is at approximately 8:00 4 cm from the nipple. There is no suspicious mass, clustered microcalcification, or architectural distortion in the right breast on 2D or 3D images. Scattered benign calcifications are seen bilaterally. Дмитрий Chandler MD MAMMO ORDERABLES from Last 3 Months or Most Recently Relevant to Health Maintenance Advance Directives * Full Code (Latest Code Status on File) Date Activated Date Inactivated Comments 08/03/2018 3:04 PM 08/06/2018 4:11 PM Care Teams Television Presenter Relationship Specialty Start Date End Date Damian Almaguer MD [address] [place] [phone] PCP - General 10/08/22 Stefanie Arechiga, RN Court Of Appeals Judge 08/04/18
--- OUTSIDE RECORDS SUMMARY | 2024-08-11 13:17 | XMS_ITS | Encounter Summary ---
Author Organization [facility] Address [address] [place] [address] Care Team Providers Care Date Night Caregiver Name Role Phone Damian Almaguer MD Primary Care Provider [phone] Encounter Details Date Type Department Care Team (Latest Contact Info) Description 08/10/2024 Travel Social History Tobacco Use Types Packs/Day Years Used Date Smoking Tobacco: Some Days Cigarettes Last attempted to quit: 09/10/2018 Smokeless Tobacco: Never Comments:patietn is no longe r smoking Alcohol Use Standard Drinks/Week Comments Not [...] week 01/06/2023 How often do you attend [facility] or [facility] services? More than 4 times per year 01/06/2023 Do you belong to any clubs o r organizations such as yarsanism groups, unions, fraternal or athletic groups, or [...] move on to questions 3-9 0 02/14/2022 [facility] - Occupational [...] PM CDT Legal Sex Female 9:18 PM MOLD FINISHER Gender Identity Female 01/06/2023 7:39 PM CDT Sexual Orientation Straight 01/06/2023 7: 39 PM CDT documented as of this encounter Functional Status * Are you deaf or do you have serious difficulty hearing Answer Date of Assessment Author Status No 01/06/2023 7:48 PM KEVENT Dorcas Delcid RN Active * Are you blind or do you have serious difficulty seeing, even when wearing glasses? Answer Date of Assessment Author Status No 01/06/2023 7:48 PM KEVENT Dorcas Delcid RN Active * Do you have serious difficulty walking or climbing stairs? Answer Date of Assessment Author Status No 01/06/2023 7:48 PM KEVENT Dorcas Delcid RN Active * Do you have difficulty dressing or bathing? Answer Date of Assessment Author Status No 01/06/2023 7:48 PM KEVENT Dorcas Delcid RN Active * Because of a physical, mental, or emotional condition, do you have difficulty doing errands alone such as visiting a doctor's office or shopping? Answer Date of Assessment Author Status No 01/06/2023 7:48 PM Dorcas Boswell RN Active documented as of this encounter Mental Status * Because of a physical, mental, or emotional condition, do you have serious difficulty concentrating, remembering, or making decisions? Answer Entry Date Author Status No 01/06/2023 7:48 PM CDT Bhavin, Jacqlyn M, RN Active documented in this encounter Plan of Treatment Not on file documented as of this encounter Goals Goal Patient Goal Type Associated Problems Recent Progress Patient-Stated? Author Safety Patient/family will have appropriate support at home upon discharge Lifestyle Jessa Pritchard RN documented as of this encounter Visit Diagnoses Not on filedocumented in this encounter Care Teams Date Night Caregiver Relationship Specialty Start Date End Date Damian Almaguer MD [address] [place] [phone] PCP - General FAMILY PRACTICE 09/27/20 documented as of this encounter
--- OUTSIDE RECORDS SUMMARY | 2024-08-11 13:17 | XMS_ITS | Referral Summary ---
Author Organization [facility] Address [address] [address] Care Team Providers Care Furnace Checker Name Role Phone Stefanie Arechiga RN Unavailable [phone] Damian Almaguer MD Primary Care Provider [phone] Source Comments [facility] Affiliates and Associated Physician Practices is amultiple site organization consisting of ambulatory clinics and hospital sitesin [place], [place], [place] and [place]. This disclosure is being madepursuant to the Care Everywhere program and may not contain all information available regarding this patient. Last updated 18.[facility] Encounters Date Type Department Care Team Description 06/24/2024 Orders Only [facility] [address] [facility] [place] [address] Marla Soto PALiuC Alcoholic cirrhosis of liver with ascites (HCC); Thrombocytopenia (HCC); Gastroesophageal reflux disease, unspecified whether esophagitis present; S/P TIPS (transjugular intrahepatic portosystemic shunt); Protein-calorie malnutrition, unspecified severity (HCC) from Last 3 Months Allergies Active Allergy Reactions Criticality Noted Date [...] resource reviewed: [facility] Follow up [...] Polyneuropathy Alcoholic cirrhosis of liver with ascites Immunizations Name Administration Dates Next Due HEP A/HEP B 08/27/2017,07/23/2017 PNEUMOCOCCAL PCV20 CONJ VAC IM 03/02/2022 Social History Tobacco Use Types Packs/Day Years [...] Respiratory Rate 20 04/22/2023 12:0 4 PM CHAIR FINISHER Oxygen Saturation 99% 04/06/2024 11: 30 AM CDT Inhaled Oxygen Concentration - - Weight 110.3 kg (243 lb 3.2 oz) 11:30 AM CDT Height 170.2 cm (5' 7 ) 04/06/2024 11:3 0 AM CDT Body Mass Index 38.09 04/06/2024 11:30 AM CDT Functional Status Functional Status Response Date of Assess ment Is person deaf or have serious hearing difficult y? No 08/05/2018 Is person blind or have serious difficulty seein g? No 08/05/2018 Does person have serious dif ficulty walking/climbing stairs? No 08/05/2018 Does person have difficulty dressing/bathing? No 08/05/2018 Does person have difficulty doing errands alone? No 08/05/2018 Cognitive Status Response Date of Assessm ent Does person have difficulty concentrating/remembering/making decisions? No 08/05/2018 Plan of Treatment Upcoming Encounters Date Type Department Care Team (Late st Contact Info) Description 10/12/2024 11:00 AM CDT Office Visit [facility] - [facility] [address] [facility] [place] [address] Marla Soto PA-C [address] [place] [address] [address] [place] [address] Goals Goal Patient Goal Type Associated Problems [...] your last dose Safety General On track( 024 11:31 AM CDT) Es Escobar RN Note: Expected end date: ongoing Interventions: Your nurse will assess your risk for falls/injury each visit Make sure appropriate safety devices are available and within reach Be aware of medications that could predispose you to falling Wear non-skid/rubber sole footwear Wear glasses/hearing aid Use some light at night in your room Medical Devices Implanted Type Area Shuttle Spotter Device Identifier Shelf Expiration Date Model / Serial / Lot Stent Eprsth 6cm 8-10mm [place] Vtr 2cm - [id number] Implanted:Qty: 1 on 08/03/2018 by Art Cerna MD at [facility] [employer] 05/28/2021 [id number] / [id number] / Procedures Procedure Name Priority Date/Time Associated Diagnosis Comments COMP MET PANEL (EXTERNAL RESULT ENTRY) Routine 08/21/2023 8:08 AM CDT HEMOGLOBIN A1C (EXTERNAL RESULT ENTRY) Routine 06/24/2023 8:30 AM CHAIR FINISHER HEPATITIS C RNA QUANTITATIVE Routine 03/13/2020 12:50 [...] mellitus with hyperosmolarity without coma, unspecified whether joint terminal attack controller insulin use (HCC) Alcoholic liver disease (HCC) [...] A1C (EXTERNAL RESULT ENTRY) (06/24/2023 8:30 AM CHAIR FINISHER) Hemoglobin A1c (EXTERNAL RESULT) 6.7(A) % OTHER LAB Blood BLOOD SPECIMEN / Unknown 06/24/2023 8:30 AM CHAIR FINISHER Historical Provider LAB - CHEMISTRY O TOMI OTHER LAB * HIV-1 HIV-2 ANTIBODY W REFLX (03/13/2020 12:50 PM CDT) HIV-1 Antibody Negative Negative 03/16/2020 11:06 PM CDT [facility] ([facility]) HIV-2 Antibody Negative Negative 03/16/2020 11:06 PM CDT [facility]) Interpretation Negative 03/16/2020 11:06 PM CDT [facility] ([facility]) Comment:See RNA Reflex. Blood BLOOD SPECIMEN / Unknown Lab Venipuncture / Unknown 03/13/2020 12:50 PM CDT 03/13/2020 1:07 PM CDT Narrative [facility] ([facility]) - 03/16/2020 11:06 PM CDT Performed at: [address] [place] [address] [address] [place], [place] [id number] Center Consultant: Jameson Durant PhD, Phone: [phone] Marla Soto PA-C LAB - [facility]OLOGY ORDERABLES [facility] [address] [place] [address], [facility] * (ABNORMAL) HEPATITIS C RNA QUANTITATIVE (03/13/2020 12:50 PM CDT) [facility] Hepatitis C Virus Quant by PCR, Blood 1,058,273 (H) Not detected IU/mL 03/15/2020 4:47 PM CDT [facility] Hepatitis C RNA PCR, Interp Detected( A) Not Detected 03/15/2020 4:47 PM CDT [facility] Blood BLOOD SPECIMEN / Unknown Lab Venipuncture / Unknown 03/13/2020 12:50 PM CDT 03/13/2020 1:22 PM CDT [facility] - 03/15/2020 4:47 PM CDT The Hepatitis C viral (HCV) RNA analysis utilized a serum sample, real-time reverse radiology transcriptionist PCR, and is reported as Not Detected, [...] the isolation of HCV RNA with reverse radiology transcriptionist of genomic HCV RNA followed by real-time PCR in the presence of an unrelated RNA internal control. The internal control ensures that RNA is isolated, and that no general significant inhibitors of the RT-PCR process are present. The analysis was performed using a U.[place]. FDA approved test methodology ([employer] Real Time HCV). Marla Soto PA-C LAB - CHEMISTRY ORDERABLES [facility] [address] [place] [address], [facility] [phone] * MAMMO BILAT SCREENING (12/24/2017 1:15 PM [...] 3:04 PM 08/06/2018 4:11 PM Care Teams Furnace Checker Relationship Specialty Start Date End Date Damian Almaguer MD [address] [place] [phone] PCP - General 10/08/22 Stefanie Arechiga, RN Pharmacy Assistant 08/04/18
--- OUTSIDE RECORDS SUMMARY | 2024-08-11 13:17 | XMS_ITS | Encounter Summary ---
Author Organization [facility] Address [facility] [place] [address] Care Team Providers Care Off Premise Service Representative Name Role Phone Pro Charlton MD Primary Care Provider [phone] Damian Almaguer MD Primary Care Provider Encounter Details Date Type Department Care Team (Latest Contact Info) Description 02/05/2018 Abstract [facility] Floyd Laird MD 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
--- OUTSIDE RECORDS SUMMARY | 2024-08-11 13:17 | XMS_ITS | Encounter Summary ---
Author Organization [facility] Address [address] [place] [address] Care Team Providers Care Cold Type Composing Machine Operator Name Role Phone Pro Charlton MD Primary Care Provider [phone] Damian Almaguer MD Primary Care Provider [phone] Encounter Details Date Type Department Care Team (Latest Contact Info) Description 04/13/2018 Abstract [facility] , Matthieu Tinoco MD Social History Tobacco Use Types Packs/Day Years Used Date Smoking Tobacco: Never Assessed Comments Unknown Sex and Gender Information Value Date Recorded Sex Assigned at Female 01/06/2023 7:39 PM CDT Legal 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
--- OUTSIDE RECORDS SUMMARY | 2024-08-11 13:17 | XMS_ITS | Patient Health Summary ---
Author Organization [facility] Address [address] [place] [address] Care Team Providers Care Survey Research Analyst Name Role Phone Stefanie Arechiga RN Unavailable [phone] Damian Almaguer MD Primary Care Provider [phone] Note from [facility],non-owned Affiliates and Associated Physician Practices is amultiple site organization consisting of ambulatory clinics and hospital sitesin [place], [place], [place] and [place]. This disclosure is being madepursuant to the Care Everywhere program and may not contain all information available regarding this patient. Last updated 18.[facility] Allergies * Adhesive Sensitivity(Rash) -Medium Criticality * Enovarx-Ibuprofen(Other) -Low Criticality * Fluoxetine(Other) -Low Criticality * Penicillins(Other) -Low Criticality Medications * Be aware that medications may not be up to date on this document. Alwaysverify current medications with the patient. * diphenhydrAMINE (BENADRYL) 25 MG tablet(Started 08/27/2017) Take 2 (two) tablets by mouth BID * valACYclovir (VALTREX) 500 MG tablet(Started 08/20/2017) Take 1 (one) tablet by mouth DAILY * midodrine (PROAMATINE) 5 MG tablet(Started 06/23/2017) Take 1 (one) tablet by mouth once daily * esomeprazole (NEXIUM) 40 MG capsule Take 1 (one) capsule by mouth 2 times daily, before breakfast and supper * multivitamin daily tablet Take 1 (one) tablet by mouth daily with food * potassium chloride ER (KLOR-CON) 20 MEQ tablet Take 1 (one) tablet by mouth 2 times daily * lactulose (CHRONULAC) 10 GM/15ML solution(Started 08/06/2018) Take 30 mL by mouth 3 times daily 2 refills remaining * baclofen (LIORESAL) 10 MG tablet Take 1 (one) tablet by mouth 3 times daily May cause drowsiness. * clonazePAM (KLONOPIN) 1 MG tablet Take 1 (one) tablet by mouth nightly as needed for Anxiety * furosemide (LASIX) 40 MG tablet Take 2 (two) tablets by mouth once daily * LANTUS vial(Started 12/29/2020) 45 (forty five) Units 2 times daily * calcium carbonate (Caltrate) 600 MG tablet Take 1 (one) tablet by mouth daily with food * spironolactone (Aldactone) 25 MG tablet Take 1 (one) tablet by mouth once daily * rifAXIMin (Xifaxan) 550 MG tablet Take 1 (one) tablet by mouth 2 times daily Active Problems Problem Noted Date Diagnosed Date Alcohol dependence, in remission 12/05/2022 04/22/2023 Nicotine dependence, cigarettes, uncomplicated 0 12/02/2022 04/22/2023 Hepatic encephalopathy 06/11/2021 Protein-calorie malnutrition 06/11/2021 Altered mental status 12/16/2020 Hyperammonemia 12/16/2020 04/22/2023 Acute cystitis without hematuria 10/10/2020 S/P TIPS (transjugular intrahepatic portosystemi c shunt) 07/17/2020 Thrombocytopenia 08/04/2018 Other ascites 07/16/2017 Alcoholic cirrhosis 06/23/2017 Chronic hepatitis C virus infection 10/10/2016 GERD (gastroesophageal reflux disease) 7 Benign hypertension 10/22/2013 Diabetes mellitus, type 2 10/22/2013 Polyneuropathy 10/22/2013 Alcoholic cirrhosis of liver with ascites Immunizations * HEP A/HEP B(Given 08/27/2017, 07/23/2017) * PNEUMOCOCCAL PCV20 CONJ VAC IM(Given 03/02/2022) Social History Tobacco Use Types Packs/Day Years [...] Respiratory Rate 20 04/22/2023 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 Oxygen Saturation 99% 04/06/2024 11: 30 AM CDT Inhaled Oxygen Concentration - - Weight 110.3 kg (243 lb 3.2 oz) 024 11:30 AM CDT Height 170.2 cm (5' 7 ) 04/06/2024 11:3 0 AM CDT Body Mass Index 38.09 04/06/2024 11:30 AM CDT Medical Devices Implanted Type Area Respiratory Director Device Identifier Shelf Expiration Date Model / Serial / Lot Stent Eprsth 6cm 8-10mm [place] [employer] 2cm - [id number] Implanted:Qty: 1 on 08/03/2018 by Lloyd Cerna MD at [facility] [employer] 05/28/2021 [id number] / [id number] / Procedures * CBC W DIFF (EXTERNAL RESULT ENTRY)(Performed 08/21/2023) * PT INR (EXTERNAL RESULT ENTRY)(Performed 08/21/2023) * COMP MET PANEL (EXTERNAL RESULT ENTRY)(Performed 08/21/2023) * HEMOGLOBIN A1C (EXTERNAL RESULT ENTRY)(Performed 06/24/2023) * PT INR (EXTERNAL RESULT ENTRY)(Performed 06/24/2023) * COMP MET PANEL (EXTERNAL RESULT ENTRY)(Performed 06/24/2023) * CBC W DIFF (EXTERNAL RESULT ENTRY)(Performed 06/24/2023) * CBC W DIFF (EXTERNAL RESULT ENTRY)(Performed 04/14/2023) * COMP MET PANEL (EXTERNAL RESULT ENTRY)(Performed 04/14/2023) * COMP MET PANEL (EXTERNAL RESULT ENTRY)(Performed 03/10/2023) * PT INR (EXTERNAL RESULT ENTRY)(Performed 03/10/2023) * COMP MET PANEL (EXTERNAL RESULT ENTRY)(Performed 02/10/2023) * PT INR (EXTERNAL RESULT ENTRY)(Performed 02/10/2023) * PT INR (EXTERNAL RESULT ENTRY)(Performed 01/15/2023) * COMP MET PANEL (EXTERNAL RESULT ENTRY)(Performed 01/15/2023) * CBC W DIFF (EXTERNAL RESULT ENTRY)(Performed 01/15/2023) * CBC W DIFF (EXTERNAL RESULT ENTRY)(Performed 12/16/2022) * COMP MET PANEL (EXTERNAL RESULT ENTRY)(Performed 12/16/2022) * PT INR (EXTERNAL RESULT ENTRY)(Performed 12/16/2022) * CBC W DIFF (EXTERNAL RESULT ENTRY)(Performed 09/30/2022) * COMP MET PANEL (EXTERNAL RESULT ENTRY)(Performed 09/30/2022) * PT INR (EXTERNAL RESULT ENTRY)(Performed 09/30/2022) * URINALYSIS (EXTERNAL RESULT ENTRY)(Performed 09/29/2022) * URINE CULTURE (EXTERNAL RESULT ENTRY)(Performed 09/29/2022) * CREATININE RAND UR (EXTERNAL RESULT ENTRY)(Performed 09/08/2022) * URINALYSIS (EXTERNAL RESULT ENTRY)(Performed 09/08/2022) * LIVER PROFILE (EXTERNAL RESULT ENTRY)(Performed 04/21/2022) * PT INR (EXTERNAL RESULT ENTRY)(Performed 04/21/2022) * COMP MET PANEL (EXTERNAL RESULT ENTRY)(Performed 04/21/2022) * CBC W DIFF (EXTERNAL RESULT ENTRY)(Performed 04/21/2022) * PT INR (EXTERNAL RESULT ENTRY)(Performed 10/10/2021) * PT INR (EXTERNAL RESULT ENTRY)(Performed 07/30/2021) * HEMOGLOBIN A1C (EXTERNAL RESULT ENTRY)(Performed 07/30/2021) * COMP MET PANEL (EXTERNAL RESULT ENTRY)(Performed 07/30/2021) * CBC W DIFF (EXTERNAL RESULT ENTRY)(Performed 07/30/2021) * BILIRUBIN DIRECT (EXTERNAL LAB RESULT)(Performed 07/30/2021) * CBC W DIFF (EXTERNAL RESULT ENTRY)(Performed 10/22/2020) * COMP MET PANEL (EXTERNAL RESULT ENTRY)(Performed 10/22/2020) * CBC W DIFF (EXTERNAL RESULT ENTRY)(Performed 06/04/2020) * COMP MET PANEL (EXTERNAL RESULT ENTRY)(Performed 06/04/2020) * HCV RNA PCR QNT (EXTERNAL RESULT ENTRY)(Performed 06/04/2020) * HIV-1 RNA QUALITATIVE RFLXD(Performed 03/13/2020) Performed for Alcoholic cirrhosis of liver with ascites (HCC), Thrombocytopenia (HCC), Chronic hepatitis C without hepatic coma (HCC), Elevated liver enzymes * HEPATITIS B SURFACE ANTIBODY QUANT(Performed 03/13/2020) Performed for Alcoholic cirrhosis of liver with ascites (HCC), Thrombocytopenia (HCC), Chronic hepatitis C without hepatic coma (HCC), Elevated liver enzymes * HIV-1 HIV-2 ANTIBODY W REFLX(Performed 03/13/2020) Performed for Alcoholic cirrhosis of liver with ascites (HCC), Thrombocytopenia (HCC), Chronic hepatitis C without hepatic coma (HCC), Elevated liver enzymes * HEPATITIS C RNA QUANTITATIVE(Performed 03/13/2020) Performed for Alcoholic cirrhosis of liver with ascites (HCC), Thrombocytopenia (HCC), Chronic hepatitis C without hepatic coma (HCC), Elevated liver enzymes * HEPATITIS B CORE ANTIBODY TOTAL(Performed 03/13/2020) Performed for Alcoholic cirrhosis of liver with ascites (HCC), Thrombocytopenia (HCC), Chronic hepatitis C without hepatic coma (HCC), Elevated liver enzymes * HEPATITIS B SURFACE ANTIGEN W RFLX CONFIRMATION(Performed 03/13/2020) Performed for Alcoholic cirrhosis of liver with ascites (HCC), Thrombocytopenia (HCC), Chronic hepatitis C without hepatic coma (HCC), Elevated liver enzymes * PT-INR SLH(Performed 03/13/2020) Performed for Alcoholic cirrhosis of liver with ascites (HCC), Thrombocytopenia (HCC), Chronic hepatitis C without hepatic coma (HCC), Elevated liver enzymes * CBC W AUTO DIFFERENTIAL(Performed 03/13/2020) Performed for Alcoholic cirrhosis of liver with ascites (HCC), Thrombocytopenia (HCC), Chronic hepatitis C without hepatic coma (HCC), Elevated liver enzymes * COMPREHENSIVE METABOLIC PANEL(Performed 03/13/2020) Performed for Alcoholic cirrhosis of liver with ascites (HCC), Thrombocytopenia (HCC), Chronic hepatitis C without hepatic coma (HCC), Elevated liver enzymes * CBC W DIFF (EXTERNAL RESULT ENTRY)(Performed 01/30/2020) * HEMOGLOBIN A1C (EXTERNAL RESULT ENTRY)(Performed 01/30/2020) * COMP MET PANEL (EXTERNAL RESULT ENTRY)(Performed 01/30/2020) * MI LIVER ELASTOGRAPHY(Performed 01/25/2019) Performed for Chronic hepatitis C without hepatic coma (HCC) * HIV-1 HIV-2 ANTIGEN/ANTIBODY(Performed 01/24/2019) Performed for Chronic hepatitis C without hepatic coma (HCC) * HEPATITIS C RNA QUANTITATIVE(Performed 01/24/2019) Performed for Chronic hepatitis C without hepatic coma (HCC) * HEPATITIS B SURFACE ANTIGEN W RFLX CONFIRMATION(Performed 01/24/2019) Performed for Chronic hepatitis C without hepatic coma (HCC) * HEPATITIS B CORE ANTIBODY TOTAL(Performed 01/24/2019) Performed for Chronic hepatitis C without hepatic coma (HCC) * PT-INR SLH(Performed 12/13/2018) Performed for Chronic hepatitis C without hepatic coma (HCC), Alcoholic cirrhosis of liver with ascites (HCC) * COMPREHENSIVE METABOLIC PANEL(Performed 12/13/2018) Performed for Chronic hepatitis C without hepatic coma (HCC), Alcoholic cirrhosis of liver with ascites (HCC) * CBC W AUTO DIFFERENTIAL(Performed 12/13/2018) Performed for Chronic hepatitis C without hepatic coma (HCC), Alcoholic cirrhosis of liver with ascites (HCC) * PT-INR SLH(Performed 10/12/2018) Performed for Alcoholic cirrhosis of liver with ascites (HCC) * CBC W AUTO DIFFERENTIAL(Performed 10/12/2018) Performed for Alcoholic cirrhosis of liver with ascites (HCC) * COMPREHENSIVE METABOLIC PANEL(Performed 10/12/2018) Performed for Alcoholic cirrhosis of liver with ascites (HCC) * US TIPS W ABDOMEN LIMITED(Performed 10/12/2018) Performed for S/P TIPS (transjugular intrahepatic portosystemic shunt) * IR TIPS REVISION(Performed 09/13/2018) Performed for Alcoholic cirrhosis of liver with ascites (HCC) * PT-INR SLH(Performed 09/13/2018) Performed for Therapeutic procedure * LARGE VOLUME PARACENTESIS(Performed 09/09/2018) Performed for Other ascites, Alcoholic cirrhosis of liver with ascites (HCC) * PARACENTESIS ABDOMEN (PERCUTANEOUS)(Performed 09/09/2018) Performed for Other ascites * DIFFERENTIAL MANUAL FLUID(Performed 09/09/2018) Performed for Other ascites, Alcoholic cirrhosis of liver with ascites (HCC) * PT-INR SLH(Performed 09/09/2018) Performed for Other ascites, Alcoholic cirrhosis of liver with ascites (HCC) * CBC W AUTO DIFFERENTIAL(Performed 09/09/2018) Performed for Other ascites, Alcoholic cirrhosis of liver with ascites (HCC) * COMPREHENSIVE METABOLIC PANEL(Performed 09/09/2018) Performed for Other ascites, Alcoholic cirrhosis of liver with ascites (HCC) * CELL COUNT W DIFFERENTIAL FLUID(Performed 09/09/2018) Performed for Other ascites, Alcoholic cirrhosis of liver with ascites (HCC) * CULTURE FLUID+GRAM STAIN(Performed 09/09/2018) Performed for Other ascites, Alcoholic cirrhosis of liver with ascites (HCC) * CARDIAC EKG ORDER(Performed 08/29/2018) * US TIPS W ABDOMEN LIMITED(Performed 08/25/2018) Performed for Alcoholic cirrhosis of liver with ascites (HCC) * LARGE VOLUME PARACENTESIS(Performed 08/12/2018) Performed for Other ascites, Alcoholic cirrhosis of liver with ascites (HCC) * PT-INR SLH(Performed 08/12/2018) Performed for Alcoholic cirrhosis of liver with ascites (HCC) * COMPREHENSIVE METABOLIC PANEL(Performed 08/12/2018) Performed for Alcoholic cirrhosis of liver with ascites (HCC) * CBC W AUTO DIFFERENTIAL(Performed 08/12/2018) Performed for Alcoholic cirrhosis of liver with ascites (HCC) * DIFFERENTIAL MANUAL FLUID(Performed 08/12/2018) Performed for Other ascites, Alcoholic cirrhosis of liver with ascites (HCC) * CELL COUNT W DIFFERENTIAL FLUID(Performed 08/12/2018) Performed for Other ascites, Alcoholic cirrhosis of liver with ascites (HCC) * CULTURE FLUID+GRAM STAIN(Performed 08/12/2018) Performed for Other ascites, Alcoholic cirrhosis of liver with ascites (HCC) * PARACENTESIS ABDOMEN (PERCUTANEOUS)(Performed 08/12/2018) Performed for Other ascites * CARDIAC PROCEDURE ORDER(Performed 08/09/2018) * CARDIAC EKG ORDER(Performed 08/09/2018) * GLUCOSE - POINT OF CARE(Performed 08/06/2018) * XR CHEST 1VW PORTABLE(Performed 08/06/2018) Performed for Alcoholic cirrhosis of liver with ascites (HCC) * GLUCOSE - POINT OF CARE(Performed 08/06/2018) * MAGNESIUM BLOOD(Performed 08/06/2018) * PT-INR SLH(Performed 08/06/2018) * COMPREHENSIVE METABOLIC PANEL(Performed 08/06/2018) * CBC W AUTO DIFFERENTIAL(Performed 08/06/2018) * GLUCOSE - POINT OF CARE(Performed 08/06/2018) * GLUCOSE - POINT OF CARE(Performed 08/05/2018) * GLUCOSE - POINT OF CARE(Performed 08/05/2018) * GLUCOSE - POINT OF CARE(Performed 08/05/2018) * NANCY DIRECT(Performed 08/05/2018) * BILIRUBIN DIRECT(Performed 08/05/2018) Performed for Alcoholic cirrhosis of liver with ascites (HCC) * PTT SLH(Performed 08/05/2018) Performed for Alcoholic cirrhosis of liver with ascites (HCC) * EKG 12-LEAD(Performed 08/05/2018) Performed for Alcoholic cirrhosis of liver with ascites (HCC) * GLUCOSE - POINT OF CARE(Performed 08/05/2018) * RBC MORPHOLOGY(Performed 08/05/2018) Performed for Alcoholic cirrhosis of liver with ascites (HCC) * CBC W AUTO DIFFERENTIAL(Performed 08/05/2018) Performed for Alcoholic cirrhosis of liver with ascites (HCC) * FIBRINOGEN ACTIVITY(Performed 08/05/2018) Performed for Alcoholic cirrhosis of liver with ascites (HCC) * LDH BLOOD(Performed 08/05/2018) Performed for Alcoholic cirrhosis of liver with ascites (HCC) * HAPTOGLOBIN(Performed 08/05/2018) Performed for Alcoholic cirrhosis of liver with ascites (HCC) * PT-INR SLH(Performed 08/05/2018) Performed for Alcoholic cirrhosis of liver with ascites (HCC) * COMPREHENSIVE METABOLIC PANEL(Performed 08/05/2018) Performed for Alcoholic cirrhosis of liver with ascites (HCC) * CBC W/O DIFFERENTIAL(Performed 08/05/2018) Performed for Alcoholic cirrhosis of liver with ascites (HCC) * GLUCOSE - POINT OF CARE(Performed 08/05/2018) * GLUCOSE - POINT OF CARE(Performed 08/04/2018) * FIBRINOGEN ACTIVITY(Performed 08/04/2018) Performed for Thrombocytopenia (HCC) * PTT SLH(Performed 08/04/2018) Performed for Thrombocytopenia (HCC) * HEPATIC FUNCTION PANEL(Performed 08/04/2018) Performed for Thrombocytopenia (HCC) * GLUCOSE - POINT OF CARE(Performed 08/04/2018) * CBC W AUTO DIFFERENTIAL(Performed 08/04/2018) Performed for Alcoholic cirrhosis of liver with ascites (HCC) * AMMONIA(Performed 08/04/2018) Performed for Alcoholic cirrhosis of liver with ascites (HCC) * PT-INR SLH(Performed 08/04/2018) Performed for Alcoholic cirrhosis of liver with ascites (HCC) * COMPREHENSIVE METABOLIC PANEL(Performed 08/04/2018) Performed for Alcoholic cirrhosis of liver with ascites (HCC) * GLUCOSE - POINT OF CARE(Performed 08/04/2018) * PT EVAL AND TREAT(Performed 08/04/2018) * OT EVAL AND TREAT(Performed 08/04/2018) * GLUCOSE - POINT OF CARE(Performed 08/04/2018) * CBC W/O DIFFERENTIAL(Performed 08/04/2018) Performed for Alcoholic cirrhosis of liver with ascites (HCC) * PT-INR SLH(Performed 08/04/2018) Performed for Alcoholic cirrhosis of liver with ascites (HCC) * COMPREHENSIVE METABOLIC PANEL(Performed 08/04/2018) Performed for Alcoholic cirrhosis of liver with ascites (HCC) * GLUCOSE - POINT OF CARE(Performed 08/04/2018) * CBC W/O DIFFERENTIAL(Performed 08/04/2018) Performed for Alcoholic cirrhosis of liver with ascites (HCC) * GLUCOSE - POINT OF CARE(Performed 08/03/2018) * COMPREHENSIVE METABOLIC PANEL(Performed 08/03/2018) Performed for Alcoholic cirrhosis of liver with ascites (HCC) * PT-INR SLH(Performed 08/03/2018) Performed for Alcoholic cirrhosis of liver with ascites (HCC) * LACTIC ACID BLOOD(Performed 08/03/2018) Performed for Alcoholic cirrhosis of liver with ascites (HCC) * CBC W/O DIFFERENTIAL(Performed 08/03/2018) Performed for Alcoholic cirrhosis of liver with ascites (HCC) * GLUCOSE - POINT OF CARE(Performed 08/03/2018) * IR TIPS PROCEDURE(Performed 08/03/2018) Performed for Alcoholic cirrhosis of liver with ascites (HCC) * ENDOTRACHEAL TUBE NOTE(Performed 08/03/2018) * TYPE + SCREEN PANEL(Performed 08/03/2018) Performed for Pre-operative exam * PT-INR SLH(Performed 08/03/2018) Performed for Alcoholic cirrhosis of liver with ascites (HCC), Decompensated HCV cirrhosis (HCC), Pre-operative exam * CBC W AUTO DIFFERENTIAL(Performed 08/03/2018) Performed for Alcoholic cirrhosis of liver with ascites (HCC), Decompensated HCV cirrhosis (HCC), Pre-operative exam * HEPATIC FUNCTION PANEL(Performed 08/03/2018) Performed for Alcoholic cirrhosis of liver with ascites (HCC), Decompensated HCV cirrhosis (HCC), Pre-operative exam * BASIC METABOLIC PANEL (CALCIUM TOTAL)(Performed 08/03/2018) Performed for Alcoholic cirrhosis of liver with ascites (HCC), Decompensated HCV cirrhosis (HCC), Pre-operative exam * LARGE VOLUME PARACENTESIS(Performed 07/22/2018) Performed for Other ascites, Alcoholic cirrhosis of liver with ascites (HCC) * PARACENTESIS ABDOMEN (PERCUTANEOUS)(Performed 07/22/2018) Performed for Other ascites * DIFFERENTIAL MANUAL FLUID(Performed 07/22/2018) Performed for Other ascites, Alcoholic cirrhosis of liver with ascites (HCC) * CELL COUNT W DIFFERENTIAL FLUID(Performed 07/22/2018) Performed for Other ascites, Alcoholic cirrhosis of liver with ascites (HCC) * CULTURE FLUID+GRAM STAIN(Performed 07/22/2018) Performed for Other ascites, Alcoholic cirrhosis of liver with ascites (HCC) * LARGE VOLUME PARACENTESIS(Performed 07/15/2018) Performed for Other ascites, Chronic hepatitis C without hepatic coma (HCC), Alcoholic cirrhosis ofliver with ascites (HCC) * PARACENTESIS ABDOMEN (PERCUTANEOUS)(Performed 07/15/2018) Performed for Other ascites * DIFFERENTIAL MANUAL FLUID(Performed 07/15/2018) Performed for Other ascites, Chronic hepatitis C without hepatic coma (HCC), Alcoholic cirrhosis ofliver with ascites (HCC) * CELL COUNT W DIFFERENTIAL FLUID(Performed 07/15/2018) Performed for Other ascites, Chronic hepatitis C without hepatic coma (HCC), Alcoholic cirrhosis ofliver with ascites (HCC) * CULTURE FLUID+GRAM STAIN(Performed 07/15/2018) Performed for Other ascites, Chronic hepatitis C without hepatic coma (HCC), Alcoholic cirrhosis ofliver with ascites (HCC) * LARGE VOLUME PARACENTESIS(Performed 07/08/2018) Performed for Other ascites, Alcoholic cirrhosis of liver with ascites (HCC) * PARACENTESIS ABDOMEN (PERCUTANEOUS)(Performed 07/08/2018) Performed for Other ascites * DIFFERENTIAL MANUAL FLUID(Performed 07/08/2018) Performed for Other ascites, Alcoholic cirrhosis of liver with ascites (HCC) * PT-INR SLH(Performed 07/08/2018) Performed for Other ascites, Alcoholic cirrhosis of liver with ascites (HCC) * CBC W AUTO DIFFERENTIAL(Performed 07/08/2018) Performed for Other ascites, Alcoholic cirrhosis of liver with ascites (HCC) * COMPREHENSIVE METABOLIC PANEL(Performed 07/08/2018) Performed for Other ascites, Alcoholic cirrhosis of liver with ascites (HCC) * CELL COUNT W DIFFERENTIAL FLUID(Performed 07/08/2018) Performed for Other ascites, Alcoholic cirrhosis of liver with ascites (HCC) * CULTURE FLUID+GRAM STAIN(Performed 07/08/2018) Performed for Other ascites, Alcoholic cirrhosis of liver with ascites (HCC) * LARGE VOLUME PARACENTESIS(Performed 07/01/2018) Performed for Other ascites, Chronic hepatitis C without hepatic coma (HCC), Alcoholic cirrhosis ofliver with ascites (HCC) * PARACENTESIS ABDOMEN (PERCUTANEOUS)(Performed 07/01/2018) Performed for Other ascites * DIFFERENTIAL MANUAL FLUID(Performed 07/01/2018) Performed for Other ascites, Chronic hepatitis C without hepatic coma (HCC), Alcoholic cirrhosis ofliver with ascites (HCC) * PT-INR SLH(Performed 07/01/2018) Performed for Other ascites, Chronic hepatitis C without hepatic coma (HCC), Alcoholic cirrhosis ofliver with ascites (HCC) * CBC W AUTO DIFFERENTIAL(Performed 07/01/2018) Performed for Other ascites, Chronic hepatitis C without hepatic coma (HCC), Alcoholic cirrhosis ofliver with ascites (HCC) * COMPREHENSIVE METABOLIC PANEL(Performed 07/01/2018) Performed for Other ascites, Chronic hepatitis C without hepatic coma (HCC), Alcoholic cirrhosis ofliver with ascites (HCC) * CELL COUNT W DIFFERENTIAL FLUID(Performed 07/01/2018) Performed for Other ascites, Chronic hepatitis C without hepatic coma (HCC), Alcoholic cirrhosis ofliver with ascites (HCC) * CULTURE FLUID+GRAM STAIN(Performed 07/01/2018) Performed for Other ascites, Chronic hepatitis C without hepatic coma (HCC), Alcoholic cirrhosis ofliver with ascites (HCC) * LARGE VOLUME PARACENTESIS(Performed 06/24/2018) Performed for Other ascites, Alcoholic cirrhosis of liver with ascites (HCC) * PARACENTESIS ABDOMEN (PERCUTANEOUS)(Performed 06/24/2018) Performed for Other ascites * DIFFERENTIAL MANUAL FLUID(Performed 06/24/2018) Performed for Other ascites, Alcoholic cirrhosis of liver with ascites (HCC) * CELL COUNT W DIFFERENTIAL FLUID(Performed 06/24/2018) Performed for Other ascites, Alcoholic cirrhosis of liver with ascites (HCC) * CULTURE FLUID+GRAM STAIN(Performed 06/24/2018) Performed for Other ascites, Alcoholic cirrhosis of liver with ascites (HCC) * LARGE VOLUME PARACENTESIS(Performed 06/14/2018) Performed for Other ascites, Alcoholic cirrhosis of liver with ascites (HCC) * PARACENTESIS ABDOMEN (PERCUTANEOUS)(Performed 06/14/2018) Performed for Other ascites * DIFFERENTIAL MANUAL FLUID(Performed 06/14/2018) Performed for Other ascites, Alcoholic cirrhosis of liver with ascites (HCC) * CELL COUNT W DIFFERENTIAL FLUID(Performed 06/14/2018) Performed for Other ascites, Alcoholic cirrhosis of liver with ascites (HCC) * CULTURE FLUID+GRAM STAIN(Performed 06/14/2018) Performed for Other ascites, Alcoholic cirrhosis of liver with ascites (HCC) * LARGE VOLUME PARACENTESIS(Performed 06/09/2018) Performed for Other ascites * DIFFERENTIAL MANUAL FLUID(Performed 06/09/2018) Performed for Other ascites * CELL COUNT W DIFFERENTIAL FLUID(Performed 06/09/2018) Performed for Other ascites * CULTURE FLUID+GRAM STAIN(Performed 06/09/2018) Performed for Other ascites * PARACENTESIS ABDOMEN (PERCUTANEOUS)(Performed 06/09/2018) Performed for Other ascites * LARGE VOLUME PARACENTESIS(Performed 06/02/2018) * PARACENTESIS ABDOMEN (PERCUTANEOUS)(Performed 06/02/2018) Performed for Other ascites * DIFFERENTIAL MANUAL FLUID(Performed 06/02/2018) Performed for Alcoholic cirrhosis of liver with ascites (HCC) * CELL COUNT W DIFFERENTIAL FLUID(Performed 06/02/2018) Performed for Alcoholic cirrhosis of liver with ascites (HCC) * CULTURE FLUID+GRAM STAIN(Performed 06/02/2018) Performed for Alcoholic cirrhosis of liver with ascites (HCC) * COMPREHENSIVE METABOLIC PANEL(Performed 06/02/2018) Performed for Alcoholic cirrhosis of liver with ascites (HCC) * CBC W AUTO DIFFERENTIAL(Performed 06/02/2018) Performed for Alcoholic cirrhosis of liver with ascites (HCC) * LARGE VOLUME PARACENTESIS(Performed 05/24/2018) Performed for Other ascites, Alcoholic cirrhosis of liver with ascites (HCC) * DIFFERENTIAL MANUAL FLUID(Performed 05/24/2018) Performed for Other ascites, Alcoholic cirrhosis of liver with ascites (HCC) * CELL COUNT W DIFFERENTIAL FLUID(Performed 05/24/2018) Performed for Other ascites, Alcoholic cirrhosis of liver with ascites (HCC) * CULTURE FLUID+GRAM STAIN(Performed 05/24/2018) Performed for Other ascites, Alcoholic cirrhosis of liver with ascites (HCC) * PARACENTESIS ABDOMEN (PERCUTANEOUS)(Performed 05/24/2018) Performed for Other ascites * LARGE VOLUME PARACENTESIS(Performed 05/17/2018) Performed for Other ascites, Alcoholic cirrhosis of liver with ascites (HCC), Chronic hepatitis C without hepatic coma (HCC) * DIFFERENTIAL MANUAL FLUID(Performed 05/17/2018) Performed for Other ascites, Alcoholic cirrhosis of liver with ascites (HCC), Chronic hepatitis C without hepatic coma (HCC) * CELL COUNT W DIFFERENTIAL FLUID(Performed 05/17/2018) Performed for Other ascites, Alcoholic cirrhosis of liver with ascites (HCC), Chronic hepatitis C without hepatic coma (HCC) * CULTURE FLUID+GRAM STAIN(Performed 05/17/2018) Performed for Other ascites, Alcoholic cirrhosis of liver with ascites (HCC), Chronic hepatitis C without hepatic coma (HCC) * PARACENTESIS ABDOMEN (PERCUTANEOUS)(Performed 05/17/2018) Performed for Other ascites * LARGE VOLUME PARACENTESIS(Performed 05/10/2018) Performed for Other ascites, Alcoholic cirrhosis of liver with ascites (HCC), Chronic hepatitis C without hepatic coma (HCC) * PARACENTESIS ABDOMEN (PERCUTANEOUS)(Performed 05/10/2018) Performed for Other ascites * DIFFERENTIAL MANUAL FLUID(Performed 05/10/2018) Performed for Other ascites, Alcoholic cirrhosis of liver with ascites (HCC), Chronic hepatitis C without hepatic coma (HCC) * CELL COUNT W DIFFERENTIAL FLUID(Performed 05/10/2018) Performed for Other ascites, Alcoholic cirrhosis of liver with ascites (HCC), Chronic hepatitis C without hepatic coma (HCC) * CULTURE FLUID+GRAM STAIN(Performed 05/10/2018) Performed for Other ascites, Alcoholic cirrhosis of liver with ascites (HCC), Chronic hepatitis C without hepatic coma (HCC) * LARGE VOLUME PARACENTESIS(Performed 05/03/2018) Performed for Alcoholic cirrhosis of liver with ascites (HCC) * DIFFERENTIAL MANUAL FLUID(Performed 05/03/2018) Performed for Alcoholic cirrhosis of liver with ascites (HCC) * CELL COUNT W DIFFERENTIAL FLUID(Performed 05/03/2018) Performed for Alcoholic cirrhosis of liver with ascites (HCC) * CULTURE FLUID+GRAM STAIN(Performed 05/03/2018) Performed for Alcoholic cirrhosis of liver with ascites (HCC) * PARACENTESIS ABDOMEN (PERCUTANEOUS)(Performed 05/03/2018) Performed for Other ascites * PT-INR SLH(Performed 05/03/2018) Performed for Alcoholic cirrhosis of liver with ascites (HCC) * COMPREHENSIVE METABOLIC PANEL(Performed 05/03/2018) Performed for Alcoholic cirrhosis of liver with ascites (HCC) * CBC W AUTO DIFFERENTIAL(Performed 05/03/2018) Performed for Alcoholic cirrhosis of liver with ascites (HCC) * LARGE VOLUME PARACENTESIS(Performed 04/26/2018) Performed for Other ascites, Alcoholic cirrhosis of liver with ascites (HCC), Chronic hepatitis C without hepatic coma (HCC) * PARACENTESIS ABDOMEN (PERCUTANEOUS)(Performed 04/26/2018) Performed for Other ascites * DIFFERENTIAL MANUAL FLUID(Performed 04/26/2018) Performed for Other ascites, Alcoholic cirrhosis of liver with ascites (HCC), Chronic hepatitis C without hepatic coma (HCC) * CELL COUNT W DIFFERENTIAL FLUID(Performed 04/26/2018) Performed for Other ascites, Alcoholic cirrhosis of liver with ascites (HCC), Chronic hepatitis C without hepatic coma (HCC) * CULTURE FLUID+GRAM STAIN(Performed 04/26/2018) Performed for Other ascites, Alcoholic cirrhosis of liver with ascites (HCC), Chronic hepatitis C without hepatic coma (HCC) * LARGE VOLUME PARACENTESIS(Performed 04/19/2018) * PARACENTESIS ABDOMEN (PERCUTANEOUS)(Performed 04/19/2018) Performed for Other ascites * DIFFERENTIAL MANUAL FLUID(Performed 04/19/2018) Performed for Chronic hepatitis C without hepatic coma (HCC) * CELL COUNT W DIFFERENTIAL FLUID(Performed 04/19/2018) Performed for Chronic hepatitis C without hepatic coma (HCC) * CULTURE FLUID+GRAM STAIN(Performed 04/19/2018) Performed for Chronic hepatitis C without hepatic coma (HCC) * LARGE VOLUME PARACENTESIS(Performed 04/12/2018) Performed for Other ascites, Alcoholic cirrhosis of liver with ascites (HCC) * PARACENTESIS ABDOMEN (PERCUTANEOUS)(Performed 04/12/2018) Performed for Other ascites * PT-INR SLH(Performed 04/12/2018) Performed for Other ascites, Alcoholic cirrhosis of liver with ascites (HCC) * COMPREHENSIVE METABOLIC PANEL(Performed 04/12/2018) Performed for Other ascites, Alcoholic cirrhosis of liver with ascites (HCC) * CBC W AUTO DIFFERENTIAL(Performed 04/12/2018) Performed for Other ascites, Alcoholic cirrhosis of liver with ascites (HCC) * DIFFERENTIAL MANUAL FLUID(Performed 04/12/2018) Performed for Other ascites, Alcoholic cirrhosis of liver with ascites (HCC) * CELL COUNT W DIFFERENTIAL FLUID(Performed 04/12/2018) Performed for Other ascites, Alcoholic cirrhosis of liver with ascites (HCC) * CULTURE FLUID+GRAM STAIN(Performed 04/12/2018) Performed for Other ascites, Alcoholic cirrhosis of liver with ascites (HCC) * LARGE VOLUME PARACENTESIS(Performed 04/05/2018) Performed for Other ascites * PARACENTESIS ABDOMEN (PERCUTANEOUS)(Performed 04/05/2018) Performed for Other ascites * DIFFERENTIAL MANUAL FLUID(Performed 04/05/2018) Performed for Other ascites, Alcoholic cirrhosis of liver with ascites (HCC) * CELL COUNT W DIFFERENTIAL FLUID(Performed 04/05/2018) Performed for Other ascites, Alcoholic cirrhosis of liver with ascites (HCC) * CULTURE FLUID+GRAM STAIN(Performed 04/05/2018) Performed for Other ascites, Alcoholic cirrhosis of liver with ascites (HCC) * LARGE VOLUME PARACENTESIS(Performed 03/29/2018) Performed for Other ascites, Alcoholic cirrhosis of liver with ascites (HCC), Chronic hepatitis C without hepatic coma (HCC) * DIFFERENTIAL MANUAL FLUID(Performed 03/29/2018) Performed for Other ascites, Alcoholic cirrhosis of liver with ascites (HCC), Chronic hepatitis C without hepatic coma (HCC) * CELL COUNT W DIFFERENTIAL FLUID(Performed 03/29/2018) Performed for Other ascites, Alcoholic cirrhosis of liver with ascites (HCC), Chronic hepatitis C without hepatic coma (HCC) * CULTURE FLUID+GRAM STAIN(Performed 03/29/2018) Performed for Other ascites, Alcoholic cirrhosis of liver with ascites (HCC), Chronic hepatitis C without hepatic coma (HCC) * PARACENTESIS ABDOMEN (PERCUTANEOUS)(Performed 03/29/2018) Performed for Other ascites * PT-INR SLH(Performed 03/15/2018) Performed for Alcoholic cirrhosis of liver with ascites (HCC) * COMPREHENSIVE METABOLIC PANEL(Performed 03/15/2018) Performed for Alcoholic cirrhosis of liver with ascites (HCC) * CBC W AUTO DIFFERENTIAL(Performed 03/15/2018) Performed for Alcoholic cirrhosis of liver with ascites (HCC) * LARGE VOLUME PARACENTESIS(Performed 03/15/2018) Performed for Other ascites, Alcoholic cirrhosis of liver with ascites (HCC), Chronic hepatitis C without hepatic coma (HCC) * DIFFERENTIAL MANUAL FLUID(Performed 03/15/2018) Performed for Other ascites, Alcoholic cirrhosis of liver with ascites (HCC), Chronic hepatitis C without hepatic coma (HCC) * CELL COUNT W DIFFERENTIAL FLUID(Performed 03/15/2018) Performed for Other ascites, Alcoholic cirrhosis of liver with ascites (HCC), Chronic hepatitis C without hepatic coma (HCC) * CULTURE FLUID+GRAM STAIN(Performed 03/15/2018) Performed for Other ascites, Alcoholic cirrhosis of liver with ascites (HCC), Chronic hepatitis C without hepatic coma (HCC) * PARACENTESIS ABDOMEN (PERCUTANEOUS)(Performed 03/15/2018) Performed for Other ascites * LARGE VOLUME PARACENTESIS(Performed 03/08/2018) Performed for Other ascites, Alcoholic cirrhosis of liver with ascites (HCC), Chronic hepatitis C without hepatic coma (HCC) * PARACENTESIS ABDOMEN (PERCUTANEOUS)(Performed 03/08/2018) Performed for Other ascites * DIFFERENTIAL MANUAL FLUID(Performed 03/08/2018) Performed for Other ascites, Alcoholic cirrhosis of liver with ascites (HCC), Chronic hepatitis C without hepatic coma (HCC) * PT-INR SLH(Performed 03/08/2018) Performed for Other ascites, Alcoholic cirrhosis of liver with ascites (HCC), Chronic hepatitis C without hepatic coma (HCC) * CBC W AUTO DIFFERENTIAL(Performed 03/08/2018) Performed for Other ascites, Alcoholic cirrhosis of liver with ascites (HCC), Chronic hepatitis C without hepatic coma (HCC) * COMPREHENSIVE METABOLIC PANEL(Performed 03/08/2018) Performed for Other ascites, Alcoholic cirrhosis of liver with ascites (HCC), Chronic hepatitis C without hepatic coma (HCC) * CELL COUNT W DIFFERENTIAL FLUID(Performed 03/08/2018) Performed for Other ascites, Alcoholic cirrhosis of liver with ascites (HCC), Chronic hepatitis C without hepatic coma (HCC) * CULTURE FLUID+GRAM STAIN(Performed 03/08/2018) Performed for Other ascites, Alcoholic cirrhosis of liver with ascites (HCC), Chronic hepatitis C without hepatic coma (HCC) * LARGE VOLUME PARACENTESIS(Performed 03/01/2018) * DIFFERENTIAL MANUAL FLUID(Performed 03/01/2018) Performed for Other ascites * CELL COUNT W DIFFERENTIAL FLUID(Performed 03/01/2018) Performed for Other ascites * CULTURE FLUID+GRAM STAIN(Performed 03/01/2018) Performed for Other ascites * PARACENTESIS ABDOMEN (PERCUTANEOUS)(Performed 03/01/2018) Performed for Other ascites * LARGE VOLUME PARACENTESIS(Performed 02/22/2018) Performed for Other ascites * GLUCOSE - POINT OF CARE(Performed 02/22/2018) * DIFFERENTIAL MANUAL FLUID(Performed 02/22/2018) Performed for Other ascites * CELL COUNT W DIFFERENTIAL FLUID(Performed 02/22/2018) Performed for Other ascites * CULTURE FLUID+GRAM STAIN(Performed 02/22/2018) Performed for Other ascites * PARACENTESIS ABDOMEN (PERCUTANEOUS)(Performed 02/22/2018) Performed for Other ascites * GLUCOSE - POINT OF CARE(Performed 02/22/2018) * LARGE VOLUME PARACENTESIS(Performed 02/15/2018) Performed for Other ascites, Alcoholic cirrhosis of liver with ascites (HCC), Chronic hepatitis C without hepatic coma (HCC) * DIFFERENTIAL MANUAL FLUID(Performed 02/15/2018) Performed for Other ascites, Alcoholic cirrhosis of liver with ascites (HCC), Chronic hepatitis C without hepatic coma (HCC) * CELL COUNT W DIFFERENTIAL FLUID(Performed 02/15/2018) Performed for Other ascites, Alcoholic cirrhosis of liver with ascites (HCC), Chronic hepatitis C without hepatic coma (HCC) * CULTURE FLUID+GRAM STAIN(Performed 02/15/2018) Performed for Other ascites, Alcoholic cirrhosis of liver with ascites (HCC), Chronic hepatitis C without hepatic coma (HCC) * PARACENTESIS ABDOMEN (PERCUTANEOUS)(Performed 02/15/2018) Performed for Other ascites * PT-INR SLH(Performed 02/04/2018) Performed for Alcoholic cirrhosis of liver with ascites (HCC), Chronic hepatitis C without hepatic coma (HCC) * COMPREHENSIVE METABOLIC PANEL(Performed 02/04/2018) Performed for Alcoholic cirrhosis of liver with ascites (HCC), Chronic hepatitis C without hepatic coma (HCC) * CBC W AUTO DIFFERENTIAL(Performed 02/04/2018) Performed for Alcoholic cirrhosis of liver with ascites (HCC), Chronic hepatitis C without hepatic coma (HCC) * URINE DRUG SCREEN IMMUNOASSAY(Performed 02/04/2018) Performed for Alcoholic cirrhosis of liver with ascites (HCC) * LARGE VOLUME PARACENTESIS(Performed 02/03/2018) Performed for Other ascites * DIFFERENTIAL MANUAL FLUID(Performed 02/03/2018) Performed for Other ascites * CELL COUNT W DIFFERENTIAL FLUID(Performed 02/03/2018) Performed for Other ascites * CULTURE FLUID+GRAM STAIN(Performed 02/03/2018) Performed for Other ascites * PARACENTESIS ABDOMEN (PERCUTANEOUS)(Performed 02/03/2018) Performed for Other ascites * LARGE VOLUME PARACENTESIS(Performed 01/28/2018) Performed for Other ascites, Alcoholic cirrhosis of liver with ascites (HCC) * DIFFERENTIAL MANUAL FLUID(Performed 01/28/2018) Performed for Other ascites, Alcoholic cirrhosis of liver with ascites (HCC) * CELL COUNT W DIFFERENTIAL FLUID(Performed 01/28/2018) Performed for Other ascites, Alcoholic cirrhosis of liver with ascites (HCC) * CULTURE FLUID+GRAM STAIN(Performed 01/28/2018) Performed for Other ascites, Alcoholic cirrhosis of liver with ascites (HCC) * PARACENTESIS ABDOMEN (PERCUTANEOUS)(Performed 01/28/2018) Performed for Other ascites * LARGE VOLUME PARACENTESIS(Performed 01/21/2018) Performed for Other ascites, Alcoholic cirrhosis of liver with ascites (HCC) * PT-INR SLH(Performed 01/21/2018) Performed for Other ascites, Alcoholic cirrhosis of liver with ascites (HCC) * CBC W AUTO DIFFERENTIAL(Performed 01/21/2018) Performed for Other ascites, Alcoholic cirrhosis of liver with ascites (HCC) * COMPREHENSIVE METABOLIC PANEL(Performed 01/21/2018) Performed for Other ascites, Alcoholic cirrhosis of liver with ascites (HCC) * DIFFERENTIAL MANUAL FLUID(Performed 01/21/2018) Performed for Other ascites, Alcoholic cirrhosis of liver with ascites (HCC) * CELL COUNT W DIFFERENTIAL FLUID(Performed 01/21/2018) Performed for Other ascites, Alcoholic cirrhosis of liver with ascites (HCC) * CULTURE FLUID+GRAM STAIN(Performed 01/21/2018) Performed for Other ascites, Alcoholic cirrhosis of liver with ascites (HCC) * PARACENTESIS ABDOMEN (PERCUTANEOUS)(Performed 01/21/2018) Performed for Other ascites * LARGE VOLUME PARACENTESIS(Performed 01/14/2018) Performed for Other ascites, Alcoholic cirrhosis of liver with ascites (HCC) * PARACENTESIS ABDOMEN (PERCUTANEOUS)(Performed 01/14/2018) Performed for Other ascites * DIFFERENTIAL MANUAL FLUID(Performed 01/14/2018) Performed for Other ascites, Alcoholic cirrhosis of liver with ascites (HCC) * CELL COUNT W DIFFERENTIAL FLUID(Performed 01/14/2018) Performed for Other ascites, Alcoholic cirrhosis of liver with ascites (HCC) * CULTURE FLUID+GRAM STAIN(Performed 01/14/2018) Performed for Other ascites, Alcoholic cirrhosis of liver with ascites (HCC) * LARGE VOLUME PARACENTESIS(Performed 01/07/2018) Performed for Other ascites, Alcoholic cirrhosis of liver with ascites (HCC) * PARACENTESIS ABDOMEN (PERCUTANEOUS)(Performed 01/07/2018) Performed for Other ascites * DIFFERENTIAL MANUAL FLUID(Performed 01/07/2018) Performed for Other ascites, Alcoholic cirrhosis of liver with ascites (HCC) * CELL COUNT W DIFFERENTIAL FLUID(Performed 01/07/2018) Performed for Other ascites, Alcoholic cirrhosis of liver with ascites (HCC) * CULTURE FLUID+GRAM STAIN(Performed 01/07/2018) Performed for Other ascites, Alcoholic cirrhosis of liver with ascites (HCC) * LARGE VOLUME PARACENTESIS(Performed 12/31/2017) Performed for Other ascites, Alcoholic cirrhosis of liver with ascites (HCC) * US BREAST LEFT LTD(Performed 12/31/2017) Performed for Abnormal mammogram * DIFFERENTIAL MANUAL FLUID(Performed 12/31/2017) Performed for Other ascites, Alcoholic cirrhosis of liver with ascites (HCC) * CELL COUNT W DIFFERENTIAL FLUID(Performed 12/31/2017) Performed for Other ascites, Alcoholic cirrhosis of liver with ascites (HCC) * CULTURE FLUID+GRAM STAIN(Performed 12/31/2017) Performed for Other ascites, Alcoholic cirrhosis of liver with ascites (HCC) * PARACENTESIS ABDOMEN (PERCUTANEOUS)(Performed 12/31/2017) Performed for Other ascites * CARDIAC EKG ORDER(Performed 12/29/2017) * MAMMO BILAT SCREENING(Performed 12/24/2017) Performed for Pre-transplant evaluation for liver transplant, Type 2 diabetes mellitus with hyperosmolarity without coma, unspecified whether correction insulin use (HCC), Alcoholic liver disease (HCC), Chronic hepatitis C with hepatic coma (HCC) * ECHO DOPPLER ONLY(Performed 12/24/2017) Performed for Pre-transplant evaluation for liver transplant, Type 2 diabetes mellitus with hyperosmolarity without coma, unspecified whether correction insulin use (HCC), Alcoholic liver disease (HCC), Chronic hepatitis C with hepatic coma (HCC) * ECHO STRESS W DOBUTAMINE(Performed 12/24/2017) Performed for Pre-transplant evaluation for liver transplant, Type 2 diabetes mellitus with hyperosmolarity without coma, unspecified whether watermaster insulin use (HCC), Alcoholic liver disease (HCC), Chronic hepatitis C with hepatic coma (HCC) * CT LIVER 3 PHASE W PELVIS(Performed 12/24/2017) Performed for Pre-transplant evaluation for liver transplant, Type 2 diabetes mellitus with hyperosmolarity without coma, unspecified whether watermaster insulin use (HCC), Alcoholic liver disease (HCC), Chronic hepatitis C with hepatic coma (HCC) * URINALYSIS W/MICROSCOPIC NO CULTURE(Performed 12/24/2017) Performed for Preop examination, Type 2 diabetes mellitus with hyperosmolarity without coma, unspecified whether correction insulin use (HCC), Alcohol liver damage (HCC), Chronic hepatitis C with hepatic coma (HCC) * URINE DRUG SCREEN IMMUNOASSAY(Performed 12/24/2017) Performed for Pre-transplant evaluation for liver transplant, Type 2 diabetes mellitus with hyperosmolarity without coma, unspecified whether watermaster insulin use (HCC), Alcoholic liver disease (HCC), Chronic hepatitis C with hepatic coma (HCC) * BLOOD TYPE ABO+ RH PANEL(Performed 12/24/2017) Performed for Preop examination, Type 2 diabetes mellitus with hyperosmolarity without coma, unspecified whether correction insulin use (HCC), Alcohol liver damage (HCC), Chronic hepatitis C with hepatic coma (HCC) * HIV-1 HIV-2 ANTIGEN/ANTIBODY(Performed 12/24/2017) Performed for Preop examination, Type 2 diabetes mellitus with hyperosmolarity without coma, unspecified whether correction insulin use (HCC), Alcohol liver damage (HCC), Chronic hepatitis C with hepatic coma (HCC) * PT-INR SLH(Performed 12/24/2017) Performed for Preop examination, Type 2 diabetes mellitus with hyperosmolarity without coma, unspecified whether watermaster insulin use (HCC), Alcohol liver damage (HCC), Chronic hepatitis C with hepatic coma (HCC) * TRANSFERRIN(Performed 12/24/2017) Performed for Preop examination, Type 2 diabetes mellitus with hyperosmolarity without coma, unspecified whether correction insulin use (HCC), Alcohol liver damage (HCC), Chronic hepatitis C with hepatic coma (HCC) * QUANTIFERON TB-GOLD (CLIENT INCUBATED)(Performed 12/24/2017) Performed for Preop examination, Type 2 diabetes mellitus with hyperosmolarity without coma, unspecified whether correction insulin use (HCC), Alcohol liver damage (HCC), Chronic hepatitis C with hepatic coma (HCC) * VARICELLA ZOSTER ANTIBODY IGG(Performed 12/24/2017) Performed for Preop examination, Type 2 diabetes mellitus with hyperosmolarity without coma, unspecified whether correction insulin use (HCC), Alcohol liver damage (HCC), Chronic hepatitis C with hepatic coma (HCC) * MUMPS ANTIBODY IGG(Performed 12/24/2017) Performed for Preop examination, Type 2 diabetes mellitus with hyperosmolarity without coma, unspecified whether correction insulin use (HCC), Alcohol liver damage (HCC), Chronic hepatitis C with hepatic coma (HCC) * RUBEOLA ANTIBODY IGG(Performed 12/24/2017) Performed for Preop examination, Type 2 diabetes mellitus with hyperosmolarity without coma, unspecified whether correction insulin use (HCC), Alcohol liver damage (HCC), Chronic hepatitis C with hepatic coma (HCC) * NICOTINE + METABOLITES BLOOD(Performed 12/24/2017) Performed for Preop examination, Type 2 diabetes mellitus with hyperosmolarity without coma, unspecified whether correction insulin use (HCC), Alcohol liver damage (HCC), Chronic hepatitis C with hepatic coma (HCC) * ALCOHOL ETHYL BLOOD(Performed 12/24/2017) Performed for Preop examination, Type 2 diabetes mellitus with hyperosmolarity without coma, unspecified whether watermaster insulin use (HCC), Alcohol liver damage (HCC), Chronic hepatitis C with hepatic coma (HCC) * RPR(Performed 12/24/2017) Performed for Preop examination, Type 2 diabetes mellitus with hyperosmolarity without coma, unspecified whether correction insulin use (HCC), Alcohol liver damage (HCC), Chronic hepatitis C with hepatic coma (HCC) * HEMOGLOBIN A1C(Performed 12/24/2017) Performed for Preop examination, Type 2 diabetes mellitus with hyperosmolarity without coma, unspecified whether correction insulin use (HCC), Alcohol liver damage (HCC), Chronic hepatitis C with hepatic coma (HCC) * SUKHDEV-MARKS VIRUS ANTIBODY TO VCA IGG(Performed 12/24/2017) Performed for Preop examination, Type 2 diabetes mellitus with hyperosmolarity without coma, unspecified whether watermaster insulin use (HCC), Alcohol liver damage (HCC), Chronic hepatitis C with hepatic coma (HCC) * CYTOMEGALOVIRUS ANTIBODY IGG BLOOD(Performed 12/24/2017) Performed for Preop examination, Type 2 diabetes mellitus with hyperosmolarity without coma, unspecified whether watermaster insulin use (HCC), Alcohol liver damage (HCC), Chronic hepatitis C with hepatic coma (HCC) * ALPHA FETOPROTEIN BLOOD TUMOR MARKER(Performed 12/24/2017) Performed for Preop examination, Type 2 diabetes mellitus with hyperosmolarity without coma, unspecified whether watermaster insulin use (HCC), Alcohol liver damage (HCC), Chronic hepatitis C with hepatic coma (HCC) * LIPID PROFILE(Performed 12/24/2017) Performed for Preop examination, Type 2 diabetes mellitus with hyperosmolarity without coma, unspecified whether correction insulin use (HCC), Alcohol liver damage (HCC), Chronic hepatitis C with hepatic coma (HCC) * IRON BLOOD(Performed 12/24/2017) Performed for Preop examination, Type 2 diabetes mellitus with hyperosmolarity without coma, unspecified whether correction insulin use (HCC), Alcohol liver damage (HCC), Chronic hepatitis C with hepatic coma (HCC) * FERRITIN(Performed 12/24/2017) Performed for Preop examination, Type 2 diabetes mellitus with hyperosmolarity without coma, unspecified whether correction insulin use (HCC), Alcohol liver damage (HCC), Chronic hepatitis C with hepatic coma (HCC) * COMPREHENSIVE METABOLIC PANEL(Performed 12/24/2017) Performed for Preop examination, Type 2 diabetes mellitus with hyperosmolarity without coma, unspecified whether correction insulin use (HCC), Alcohol liver damage (HCC), Chronic hepatitis C with hepatic coma (HCC) * CBC W AUTO DIFFERENTIAL(Performed 12/24/2017) Performed for Preop examination, Type 2 diabetes mellitus with hyperosmolarity without coma, unspecified whether watermaster insulin use (HCC), Alcohol liver damage (HCC), Chronic hepatitis C with hepatic coma (HCC) * TYPE + SCREEN PANEL(Performed 12/24/2017) Performed for Preop examination, Type 2 diabetes mellitus with hyperosmolarity without coma, unspecified whether correction insulin use (HCC), Alcohol liver damage (HCC), Chronic hepatitis C with hepatic coma (HCC) * XR PANOREX(Performed 12/24/2017) Performed for Pre-transplant evaluation for liver transplant, Type 2 diabetes mellitus with hyperosmolarity without coma, unspecified whether watermaster insulin use (HCC), Alcoholic liver disease (HCC), Chronic hepatitis C with hepatic coma (HCC) * XR CHEST 2VW(Performed 12/24/2017) Performed for Pre-transplant evaluation for liver transplant, Type 2 diabetes mellitus with hyperosmolarity without coma, unspecified whether correction insulin use (HCC), Alcoholic liver disease (HCC), Chronic hepatitis C with hepatic coma (HCC) * LARGE VOLUME PARACENTESIS(Performed 12/23/2017) Performed for Other ascites * DIFFERENTIAL MANUAL FLUID(Performed 12/23/2017) Performed for Other ascites * CELL COUNT W DIFFERENTIAL FLUID(Performed 12/23/2017) Performed for Other ascites * CULTURE FLUID+GRAM STAIN(Performed 12/23/2017) Performed for Other ascites * PARACENTESIS ABDOMEN (PERCUTANEOUS)(Performed 12/23/2017) Performed for Other ascites * LARGE VOLUME PARACENTESIS(Performed 12/17/2017) Performed for Other ascites, Alcoholic cirrhosis of liver with ascites (HCC) * DIFFERENTIAL MANUAL FLUID(Performed 12/17/2017) Performed for Other ascites, Alcoholic cirrhosis of liver with ascites (HCC) * CELL COUNT W DIFFERENTIAL FLUID(Performed 12/17/2017) Performed for Other ascites, Alcoholic cirrhosis of liver with ascites (HCC) * CULTURE FLUID+GRAM STAIN(Performed 12/17/2017) Performed for Other ascites, Alcoholic cirrhosis of liver with ascites (HCC) * PARACENTESIS ABDOMEN (PERCUTANEOUS)(Performed 12/17/2017) Performed for Other ascites * PT-INR SLH(Performed 12/17/2017) Performed for Other ascites, Alcoholic cirrhosis of liver with ascites (HCC) * CBC W AUTO DIFFERENTIAL(Performed 12/17/2017) Performed for Other ascites, Alcoholic cirrhosis of liver with ascites (HCC) * COMPREHENSIVE METABOLIC PANEL(Performed 12/17/2017) Performed for Other ascites, Alcoholic cirrhosis of liver with ascites (HCC) * LARGE VOLUME PARACENTESIS(Performed 12/10/2017) Performed for Other ascites * DIFFERENTIAL MANUAL FLUID(Performed 12/10/2017) Performed for Other ascites * CELL COUNT W DIFFERENTIAL FLUID(Performed 12/10/2017) Performed for Other ascites * CULTURE FLUID+GRAM STAIN(Performed 12/10/2017) Performed for Other ascites * PARACENTESIS ABDOMEN (PERCUTANEOUS)(Performed 12/10/2017) Performed for Other ascites * LARGE VOLUME PARACENTESIS(Performed 12/03/2017) Performed for Other ascites, Alcoholic cirrhosis of liver with ascites (HCC) * DIFFERENTIAL MANUAL FLUID(Performed 12/03/2017) Performed for Other ascites, Alcoholic cirrhosis of liver with ascites (HCC) * CELL COUNT W DIFFERENTIAL FLUID(Performed 12/03/2017) Performed for Other ascites, Alcoholic cirrhosis of liver with ascites (HCC) * CULTURE FLUID+GRAM STAIN(Performed 12/03/2017) Performed for Other ascites, Alcoholic cirrhosis of liver with ascites (HCC) * PARACENTESIS ABDOMEN (PERCUTANEOUS)(Performed 12/03/2017) Performed for Other ascites * LARGE VOLUME PARACENTESIS(Performed 11/26/2017) Performed for Other ascites, Alcoholic cirrhosis of liver with ascites (HCC) * DIFFERENTIAL MANUAL FLUID(Performed 11/26/2017) Performed for Other ascites, Alcoholic cirrhosis of liver with ascites (HCC) * CELL COUNT W DIFFERENTIAL FLUID(Performed 11/26/2017) Performed for Other ascites, Alcoholic cirrhosis of liver with ascites (HCC) * CULTURE FLUID+GRAM STAIN(Performed 11/26/2017) Performed for Other ascites, Alcoholic cirrhosis of liver with ascites (HCC) * PARACENTESIS ABDOMEN (PERCUTANEOUS)(Performed 11/26/2017) Performed for Other ascites * LARGE VOLUME PARACENTESIS(Performed 11/19/2017) Performed for Other ascites, Alcoholic cirrhosis of liver with ascites (HCC) * PARACENTESIS ABDOMEN (PERCUTANEOUS)(Performed 11/19/2017) Performed for Other ascites * DIFFERENTIAL MANUAL FLUID(Performed 11/19/2017) Performed for Other ascites, Alcoholic cirrhosis of liver with ascites (HCC) * CELL COUNT W DIFFERENTIAL FLUID(Performed 11/19/2017) Performed for Other ascites, Alcoholic cirrhosis of liver with ascites (HCC) * CULTURE FLUID+GRAM STAIN(Performed 11/19/2017) Performed for Other ascites, Alcoholic cirrhosis of liver with ascites (HCC) * CBC W AUTO DIFFERENTIAL(Performed 11/19/2017) Performed for Other ascites, Alcoholic cirrhosis of liver with ascites (HCC) * COMPREHENSIVE METABOLIC PANEL(Performed 11/19/2017) Performed for Other ascites, Alcoholic cirrhosis of liver with ascites (HCC) * PT-INR SLH(Performed 11/19/2017) Performed for Other ascites, Alcoholic cirrhosis of liver with ascites (HCC) * LARGE VOLUME PARACENTESIS(Performed 11/12/2017) Performed for Other ascites, Alcoholic cirrhosis of liver with ascites (HCC) * PARACENTESIS ABDOMEN (PERCUTANEOUS)(Performed 11/12/2017) Performed for Other ascites * DIFFERENTIAL MANUAL FLUID(Performed 11/12/2017) Performed for Other ascites, Alcoholic cirrhosis of liver with ascites (HCC) * CELL COUNT W DIFFERENTIAL FLUID(Performed 11/12/2017) Performed for Other ascites, Alcoholic cirrhosis of liver with ascites (HCC) * CULTURE FLUID+GRAM STAIN(Performed 11/12/2017) Performed for Other ascites, Alcoholic cirrhosis of liver with ascites (HCC) * LARGE VOLUME PARACENTESIS(Performed 11/05/2017) Performed for Other ascites, Alcoholic cirrhosis of liver with ascites (HCC) * DIFFERENTIAL MANUAL FLUID(Performed 11/05/2017) Performed for Other ascites, Alcoholic cirrhosis of liver with ascites (HCC) * CELL COUNT W DIFFERENTIAL FLUID(Performed 11/05/2017) Performed for Other ascites, Alcoholic cirrhosis of liver with ascites (HCC) * CULTURE FLUID+GRAM STAIN(Performed 11/05/2017) Performed for Other ascites, Alcoholic cirrhosis of liver with ascites (HCC) * PARACENTESIS ABDOMEN (PERCUTANEOUS)(Performed 11/05/2017) Performed for Other ascites * LARGE VOLUME PARACENTESIS(Performed 10/29/2017) Performed for Other ascites, Alcoholic cirrhosis of liver with ascites (HCC) * PARACENTESIS ABDOMEN (PERCUTANEOUS)(Performed 10/29/2017) Performed for Other ascites * DIFFERENTIAL MANUAL FLUID(Performed 10/29/2017) Performed for Other ascites, Alcoholic cirrhosis of liver with ascites (HCC) * CELL COUNT W DIFFERENTIAL FLUID(Performed 10/29/2017) Performed for Other ascites, Alcoholic cirrhosis of liver with ascites (HCC) * CULTURE FLUID+GRAM STAIN(Performed 10/29/2017) Performed for Other ascites, Alcoholic cirrhosis of liver with ascites (HCC) * LARGE VOLUME PARACENTESIS(Performed 10/22/2017) Performed for Other ascites, Alcoholic cirrhosis of liver with ascites (HCC) * PARACENTESIS ABDOMEN (PERCUTANEOUS)(Performed 10/22/2017) Performed for Ascites due to alcoholic cirrhosis (HCC) * DIFFERENTIAL MANUAL FLUID(Performed 10/22/2017) Performed for Other ascites, Alcoholic cirrhosis of liver with ascites (HCC) * CELL COUNT W DIFFERENTIAL FLUID(Performed 10/22/2017) Performed for Other ascites, Alcoholic cirrhosis of liver with ascites (HCC) * CULTURE FLUID+GRAM STAIN(Performed 10/22/2017) Performed for Other ascites, Alcoholic cirrhosis of liver with ascites (HCC) * LARGE VOLUME PARACENTESIS(Performed 10/12/2017) Performed for Other ascites, Alcoholic cirrhosis of liver with ascites (HCC) * DIFFERENTIAL MANUAL FLUID(Performed 10/12/2017) Performed for Other ascites, Alcoholic cirrhosis of liver with ascites (HCC) * CELL COUNT W DIFFERENTIAL FLUID(Performed 10/12/2017) Performed for Other ascites, Alcoholic cirrhosis of liver with ascites (HCC) * CULTURE FLUID+GRAM STAIN(Performed 10/12/2017) Performed for Other ascites, Alcoholic cirrhosis of liver with ascites (HCC) * PARACENTESIS ABDOMEN (PERCUTANEOUS)(Performed 10/12/2017) Performed for Other ascites * FERRITIN(Performed 10/08/2017) Performed for Alcoholic cirrhosis of liver with ascites (HCC) * PT-INR SLH(Performed 10/08/2017) Performed for Alcoholic cirrhosis of liver with ascites (HCC) * COMPREHENSIVE METABOLIC PANEL(Performed 10/08/2017) Performed for Alcoholic cirrhosis of liver with ascites (HCC) * CBC W AUTO DIFFERENTIAL(Performed 10/08/2017) Performed for Alcoholic cirrhosis of liver with ascites (HCC) * LARGE VOLUME PARACENTESIS(Performed 10/01/2017) Performed for Other ascites, Alcoholic cirrhosis of liver with ascites (HCC) * GLUCOSE - POINT OF CARE(Performed 10/01/2017) * DIFFERENTIAL MANUAL FLUID(Performed 10/01/2017) Performed for Other ascites, Alcoholic cirrhosis of liver with ascites (HCC) * CELL COUNT W DIFFERENTIAL FLUID(Performed 10/01/2017) Performed for Other ascites, Alcoholic cirrhosis of liver with ascites (HCC) * CULTURE FLUID+GRAM STAIN(Performed 10/01/2017) Performed for Other ascites, Alcoholic cirrhosis of liver with ascites (HCC) * GLUCOSE - POINT OF CARE(Performed 10/01/2017) * PARACENTESIS ABDOMEN (PERCUTANEOUS)(Performed 10/01/2017) Performed for Other ascites * GLUCOSE - POINT OF CARE(Performed 10/01/2017) * GLUCOSE - POINT OF CARE(Performed 10/01/2017) * LARGE VOLUME PARACENTESIS(Performed 09/24/2017) Performed for Other ascites, Alcoholic cirrhosis of liver with ascites (HCC) * DIFFERENTIAL MANUAL FLUID(Performed 09/24/2017) Performed for Other ascites, Alcoholic cirrhosis of liver with ascites (HCC) * CELL COUNT W DIFFERENTIAL FLUID(Performed 09/24/2017) Performed for Other ascites, Alcoholic cirrhosis of liver with ascites (HCC) * CULTURE FLUID+GRAM STAIN(Performed 09/24/2017) Performed for Other ascites, Alcoholic cirrhosis of liver with ascites (HCC) * PARACENTESIS(Performed 09/24/2017) Performed for Other ascites * GLUCOSE - POINT OF CARE(Performed 09/24/2017) * LARGE VOLUME PARACENTESIS(Performed 09/17/2017) Performed for Other ascites, Alcoholic cirrhosis of liver without ascites (HCC) * CULTURE FLUID+GRAM STAIN(Performed 09/17/2017) Performed for Other ascites, Alcoholic cirrhosis of liver without ascites (HCC) * PARACENTESIS ABDOMEN (PERCUTANEOUS)(Performed 09/17/2017) Performed for Other ascites * DIFFERENTIAL MANUAL FLUID(Performed 09/17/2017) Performed for Other ascites, Alcoholic cirrhosis of liver without ascites (HCC) * CELL COUNT W DIFFERENTIAL FLUID(Performed 09/17/2017) Performed for Other ascites, Alcoholic cirrhosis of liver without ascites (HCC) * CBC W AUTO DIFFERENTIAL(Performed 09/17/2017) Performed for Other ascites, Alcoholic cirrhosis of liver without ascites (HCC) * PT-INR SLH(Performed 09/17/2017) Performed for Other ascites, Alcoholic cirrhosis of liver without ascites (HCC) * COMPREHENSIVE METABOLIC PANEL(Performed 09/17/2017) Performed for Other ascites, Alcoholic cirrhosis of liver without ascites (HCC) * CULTURE ANAEROBE(Performed 09/17/2017) Performed for Other ascites, Alcoholic cirrhosis of liver without ascites (HCC) * CULTURE ANAEROBE(Performed 08/27/2017) * CULTURE AEROBIC(Performed 08/27/2017) * DIFFERENTIAL MANUAL FLUID(Performed 08/27/2017) * CELL COUNT FLUID(Performed 08/27/2017) * CELL COUNT W DIFFERENTIAL FLUID(Performed 08/27/2017) * DIFFERENTIAL MANUAL FLUID(Performed 08/20/2017) * CELL COUNT FLUID(Performed 08/20/2017) * CELL COUNT W DIFFERENTIAL FLUID(Performed 08/20/2017) * CULTURE ANAEROBE(Performed 08/20/2017) * CULTURE AEROBIC(Performed 08/20/2017) * DIFFERENTIAL MANUAL FLUID(Performed 08/13/2017) * CELL COUNT FLUID(Performed 08/13/2017) * CELL COUNT W DIFFERENTIAL FLUID(Performed 08/13/2017) * CULTURE ANAEROBE(Performed 08/13/2017) * CULTURE AEROBIC(Performed 08/13/2017) * CELL COUNT FLUID(Performed 08/06/2017) * DIFFERENTIAL MANUAL FLUID(Performed 08/06/2017) * CELL COUNT W DIFFERENTIAL FLUID(Performed 08/06/2017) * CULTURE AEROBIC(Performed 08/06/2017) * CULTURE ANAEROBE(Performed 08/06/2017) * CBC W AUTO DIFFERENTIAL(Performed 08/06/2017) * COMPREHENSIVE METABOLIC PANEL(Performed 08/06/2017) * CBC W AUTO DIFFERENTIAL(Performed 08/06/2017) * PT-INR SLH(Performed 08/06/2017) * DIFFERENTIAL MANUAL FLUID(Performed 07/30/2017) * CELL COUNT FLUID(Performed 07/30/2017) * CULTURE ANAEROBE(Performed 07/30/2017) * CULTURE AEROBIC(Performed 07/30/2017) * CELL COUNT W DIFFERENTIAL FLUID(Performed 07/30/2017) * DIFFERENTIAL MANUAL FLUID(Performed 07/23/2017) * CELL COUNT FLUID(Performed 07/23/2017) * CELL COUNT W DIFFERENTIAL FLUID(Performed 07/23/2017) * CULTURE AEROBIC(Performed 07/23/2017) * CULTURE ANAEROBE(Performed 07/23/2017) * CULTURE AEROBIC(Performed 07/16/2017) * CULTURE ANAEROBE(Performed 07/16/2017) * DIFFERENTIAL MANUAL FLUID(Performed 07/16/2017) * CELL COUNT FLUID(Performed 07/16/2017) * CELL COUNT W DIFFERENTIAL FLUID(Performed 07/16/2017) * CULTURE AEROBIC(Performed 07/09/2017) * CULTURE ANAEROBE(Performed 07/09/2017) * DIFFERENTIAL MANUAL FLUID(Performed 07/09/2017) * CELL COUNT FLUID(Performed 07/09/2017) * CBC W AUTO DIFFERENTIAL(Performed 07/09/2017) * COMPREHENSIVE METABOLIC PANEL(Performed 07/09/2017) * PT-INR SLH(Performed 07/09/2017) * CELL COUNT W DIFFERENTIAL FLUID(Performed 07/09/2017) * CBC W AUTO DIFFERENTIAL(Performed 07/09/2017) * ALBUMIN FLUID(Performed 06/30/2017) * LIPASE BODY FLUID STL(Performed 06/30/2017) * AMYLASE BODY FLUID(Performed 06/30/2017) * PROTEIN FLUID(Performed 06/30/2017) * CULTURE AEROBIC(Performed 06/30/2017) * CULTURE ANAEROBE(Performed 06/30/2017) * DIFFERENTIAL MANUAL FLUID(Performed 06/30/2017) * CELL COUNT W DIFFERENTIAL FLUID(Performed 06/30/2017) * CELL COUNT FLUID(Performed 06/30/2017) * HEPATITIS C GENOTYPE 1 NS5A DRUG RESISTANCE(Performed 06/30/2017) * CBC W AUTO DIFFERENTIAL(Performed 06/30/2017) * HEPATITIS C GENOTYPE(Performed 06/30/2017) * HEPATITIS C RNA QUANTITATIVE(Performed 06/30/2017) * FERRITIN(Performed 06/30/2017) * HEPATITIS B CORE ANTIBODY TOTAL(Performed 06/30/2017) * HEPATITIS B SURFACE ANTIGEN W RFLX CONFIRMATION(Performed 06/30/2017) * HEPATITIS B SURFACE ANTIBODY(Performed 06/30/2017) * TSH(Performed 06/30/2017) * ALPHA FETOPROTEIN BLOOD TUMOR MARKER(Performed 06/30/2017) * CERULOPLASMIN(Performed 06/30/2017) * COMPREHENSIVE METABOLIC PANEL(Performed 06/30/2017) * [id number] BLOOD PHENOTYPING PANEL(Performed 06/30/2017) * HEPATITIS BE ANTIBODY(Performed 06/30/2017) * WANDA BLOOD SCREEN W/REFLEX TITER(Performed 06/30/2017) * MITOCHONDRIAL ANTIBODY SCREEN(Performed 06/30/2017) * SMOOTH MUSCLE ANTIBODY(Performed 06/30/2017) * HEPATITIS A ANTIBODY(Performed 06/30/2017) * HEPATITIS BE ANTIGEN(Performed 06/30/2017) * PT-INR SLH(Performed 06/30/2017) * CBC W AUTO DIFFERENTIAL(Performed 06/30/2017) * CYTOLOGY NON-SLIVER LAP TENDER PANEL (STL)(Performed 06/30/2016) Results * (ABNORMAL) CBC W DIFF (EXTERNAL RESULT ENTRY) (08/21/2023 8:08 AM CDT) Only the most recent of11 resultswithin the time period is included. WBC (EXTERNAL RESULT) 5.8 10^3/ul OTHER LAB Hemoglobin (EXTERNAL RESULT) 15.7 g/dl OTHER LAB Hematocrit (EXTERNAL RESULT) 45.1 % OTHER LAB Platelets (EXTERNAL RESULT) 92(A) 10^3/ul OTHER LAB Neutrophil Absolute (EXTERNAL RESULT) 3.2 10^3/ul OTHER LAB Blood BLOOD SPECIMEN / Unknown 08/21/2023 8:08 AM CDT Historical Provider LAB - HEMATOLOGY ORDERABLES Performing Organization Address City/[facility]/ZIP Co de Phone Number OTHER LAB * (ABNORMAL) PT INR (EXTERNAL RESULT ENTRY) (08/21/2023 8:08 AM CDT) Only the most recent of10 resultswithin the time period is included. Pathologist [facility] PT (EXTERNAL) 17.8(A) sec OTHER LAB INR (EXTERNAL RESULT) 1.7(A) OTHER LAB Blood BLOOD SPECIMEN / Unknown 08/21/2023 8:08 AM CDT Historical Provider LAB - CHEMISTRY O RDERABLES Performing Organization Address [facility] Co de Phone Number OTHER LAB * (ABNORMAL) COMP MET PANEL (EXTERNAL RESULT ENTRY) (08/21/2023 8:08 AM CDT) Only the most recent of13 resultswithin the time period is included. Glucose (EXTERNAL) 68(A) mg/dL OTHER LAB Sodium [...] CDT Historical Provider LAB - CHEMISTRY O RDERABLES Performing Organization Address City/[facility]/ZIP Co de Phone Number OTHER LAB * (ABNORMAL) HEMOGLOBIN A1C (EXTERNAL RESULT ENTRY) (06/24/2023 8:30 AM INSTRUCTIONAL SPECIALIST) Only the most recent of3 resultswithin the time period is included. Hemoglobin A1c (EXTERNAL RESULT) 6.7(A) % OTHER LAB Blood BLOOD SPECIMEN / Unknown 06/24/2023 8:30 AM INSTRUCTIONAL SPECIALIST Historical Provider LAB - CHEMISTRY O RDERABLES Performing Organization Address City/[facility] Co de Phone Number OTHER LAB * (ABNORMAL) URINE CULTURE (EXTERNAL RESULT ENTRY) (09/29/2022 1:34 AM CDT) Urine Culture (EXTERNAL) ECV(A) [facility] Urine URINE / Unknown 09/29/2022 1 :34 AM CDT Historical Provider LAB - MICROBIOLOG Y ORDERABLES Performing Organization Address City/[facility]/ZIP Co de Phone Number [facility] [address] [place] [address], [facility] [phone] * URINALYSIS (EXTERNAL RESULT ENTRY) (09/29/2022 1:34 AM CDT) Only the most recent of2 resultswithin the time period is included. pH UA (EXTERNAL RESULT) 6.5 [facility] Specific [place] Urine (EXTERNAL RESULT) 1.015 [facility] Protein UA (EXTERNAL RESULT) NEG [facility] Blood UA (EXTERNAL RESULT) TRACE [facility] Nitrite UA (EXTERNAL RESULT) NEG [facility] RBC UA (EXTERNAL RESULT) [facility] WBC UA (EXTERNAL RESULT) [facility] Leukocyte Esterase (EXTERNAL RESULT) NEG [facility] Bacteria UA (EXTERNAL RESULT) [facility] Urine URINE / Unknown 09/29/2022 1 :34 AM CDT Historical Provider LAB - CHEMISTRY O RDERAИВАН [address] [address], [place] [phone] * CREATININE RAND UR (EXTERNAL RESULT ENTRY) (09/08/2022 9:46 AM CDT) Creatinine Random Urine (EXTERNAL RESULT) 149.5 mg/dl [facility] Urine URINE / Unknown 09/08/2022 9 :46 AM CDT Historical Provider LAB - CHEMISTRY O TOMI Performing Organization Address [facility]/ZIP Co de Phone Number [address] [address], [place] [phone] * LIVER PROFILE (EXTERNAL RESULT ENTRY) (04/21/2022 8:18 AM INSTRUCTIONAL SPECIALIST) Alkaline Phosphatase (EXTERNAL RESULT) [facility] AST (EXTERNAL RESULT) [facility] ALT (EXTERNAL RESULT) [facility] Bilirubin Total (EXTERNAL RESULT) [facility] Bilirubin Direct (EXTERNAL RESULT) 1.07 mg/dl [facility] Bilirubin Indirect (EXTERNAL RESULT) [facility] Blood BLOOD SPECIMEN / Unknown 04/21/2022 8:18 AM INSTRUCTIONAL SPECIALIST Historical Provider LAB - CHEMISTRY O RDERAИВАН Performing Organization Address City/[facility]/ZIP Co de Phone Number [address] [address], [place] [phone] * BILIRUBIN DIRECT (EXTERNAL LAB RESULT) (07/30/2021) Pathologist [facility] Bilirubin Direct (EXTERNAL RESULT) 1.13 h mg/dl Blood BLOOD SPECIMEN / Unknown 07/30/2021 Historical Provider LAB - CHEMISTRY O RDERABLES * (ABNORMAL) HCV RNA PCR QNT (EXTERNAL RESULT ENTRY) (06/04/2020) Pathologist [facility] HCV RNA Quantitative RT-PCR (EXTERNAL RESULT) Positive( A) Blood BLOOD SPECIMEN / Unknown 06/04/2020 Historical Provider LAB - CHEMISTRY O RDERABLES * (ABNORMAL) PT-INR [facility] (03/13/2020 12:50 PM CDT) Only the most recent of28 resultswithin the time period is included. Pathologist [facility] PT 24.4(H) 12.1 - 14.8 Seconds 03/13/2020 1:20 PM CDT [facility] INR 2.3 See Comment 03/13/2020 1:20 PM CDT [facility] Comment:The suggested therap eutic range for standard coumadin (warfarin) therapy is an INR of 2.0-3.0. For high-risk patients (Mechanical Mitral Valve Prosthesis, etc.), the suggested prophylactic therapeutic range is an INR of 2.5-3.5. Blood BLOOD SPECIMEN / Unknown Lab Venipuncture / Unknown 03/13/2020 12:50 PM CDT 03/13/2020 1:11 PM CDT Marla Soto PA-C LAB - COAGULATI ON ORDERABLES [facility] [address] [place] [address], [facility] [phone] * HIV-1 RNA QUALITATIVE RFLXD (03/13/2020 12:50 PM CDT) [facility] HIV-1 RNA Qualitative Negative Negative 03/16/2020 11:06 PM CDT [facility] ([facility]) Comment:Negative for HIV-1 R NA Final Interpretation Comment 03/16/2020 11:06 PM CDT [facility] ([facility]) Comment: HIV antibodies were not confirmed and HIV 1 RNA was not detected. No laboratory evidence of HIV 1 infection. Follow-up testing for HIV 2 should be performed if clinically indicated. Blood BLOOD SPECIMEN / Unknown Lab Venipuncture / Unknown 03/13/2020 12:50 PM CDT 03/13/2020 1:07 PM CDT Narrative [facility] ([facility]) - 03/16/2020 11:06 PM CDT Performed at: [address] [id number] Personalized Living Manager: Jacobo Silva MD, Phone: [phone] Performed at: [address] [id number] Personalized Living Manager: Jameson Durant PhD, Phone: [phone] Marla Soto PA-C LAB - CHEMISTRY ORDERABLES [facility] [address] [place] [address] * HIV-1 HIV-2 ANTIBODY W REFLX (03/13/2020 12:50 PM CDT) [facility] HIV-1 Antibody Negative Negative 03/16/2020 11:06 PM CDT [facility] ([facility]) HIV-2 Antibody Negative Negative 03/16/2020 11:06 PM CDT [facility] ([facility]) Interpretation Negative 03/16/2020 11:06 PM CDT [facility] ([facility]) Comment:See RNA Reflex. Blood BLOOD SPECIMEN / Unknown Lab Venipuncture / Unknown 03/13/2020 12:50 PM CDT 03/13/2020 1:07 PM CDT Narrative [facility] ([facility]) - 03/16/2020 11:06 PM CDT Performed at: [address] [id number] Personalized Living Manager: Jameson Durant PhD, Phone: [phone] Marla Soto PA-C LAB - SEROLOGY ORDERABLES [facility] ([facility]) [address] [place] [address] * HEPATITIS B SURFACE ANTIBODY QUANT (03/13/2020 12:50 PM CDT) Pathologist [facility] Hepatitis B Virus Surface Antibody <3.10 IU/L 03/15/2020 7:45 AM CDT [facility] [place] ([facility]) Comment: The anti-HBs is less than 10 IU/L and is therefore negative. There is no evidence of recovery from hepatitis B infection or evidence of antibody response to HBV vaccination. An anti-HBs result greater than or equal to 10 IU/L implies immunity. For post-vaccination antibody testing guidelines for the general public refer to MMWR May 30, 2005/Vol. 54(No. 16);-, and for healthcare workers refer to MMWR May 27, 2013/Vol. 62(No. 10);-. Reference Interval: anti-HBs 9.99 IU/L or less ....... Negative 10.00 IU/L or greater .... Positive Results greater than 1,000.00 IU/L are reported as greater than 1,000.00 IU/L. This assay should not be used for blood donor screening, associated re-entry protocols, or for screening Human Cell, Tissues and Cellular and Tissue-Based Products (HCT/P). Performed By: [employer] [address] [place] [address] Dive Supervisor: Moraima Dowd MD Blood BLOOD SPECIMEN / Unknown Lab Venipuncture / Unknown 03/13/2020 12:50 PM CDT 03/13/2020 1:07 PM CDT Marla Soto PA-C LAB - SEROLOGY ORDERABLES [facility] ([facility]) [address] * (ABNORMAL) HEPATITIS C RNA QUANTITATIVE (03/13/2020 12:50 PM CDT) Only the most recent of3 resultswithin the time period is included. Pathologist [facility] Hepatitis C Virus Quant by PCR, Blood 1,058,273 (H) Not detected IU/mL 03/15/2020 4:47 PM CDT [facility] Hepatitis C RNA PCR, Interp Detected( A) Not Detected 03/15/2020 4:47 PM CDT [facility] Blood BLOOD SPECIMEN / Unknown Lab Venipuncture / Unknown 03/13/2020 12:50 PM CDT 03/13/2020 1:22 PM CDT Narrative [facility] MICROBIOLOGY - 03/15/2020 4:47 PM CDT The Hepatitis C viral (HCV) RNA analysis utilized a serum sample, real-time reverse division chair PCR, and is reported as Not Detected, [...] the isolation of HCV RNA with reverse division chair of genomic HCV RNA followed by real-time PCR in the presence of an unrelated RNA internal control. The internal control ensures that RNA is isolated, and that no general significant inhibitors of the RT-PCR process are present. The analysis was performed using a U.S. FDA approved test methodology ([place] Real Time HCV). Marla Soto PA-C LAB - CHEMISTRY ORDERABLES [facility] MICROBIOLOGY [address] [place] [address], [facility] [phone] * (ABNORMAL) CBC WITH DIFFERENTIAL (03/13/2020 12:50 PM CDT) Only the most recent of29 resultswithin the time period is included. [facility] WBC 5.4 3.5 - 10.5 10 3/uL 03/13/2020 1:31 PM CDT [facility] RBC 4.45 3.90 - 5.00 10 6/uL 03/13/2020 1:31 PM [facility] Hemoglobin 14.9 12.0 - 15.5 g/dL 03/13/2020 1:31 PM [facility] Hematocrit 43.6 35.0 - 45.0 % 03/13/2020 1:31 PM [facility] MCV 98.0(H) 81.0 - 97.0 fL 03/13/2020 1:31 PM [facility] MCH 33.5 28.0 - 34.0 pg 03/13/2020 1:31 PM [facility] MCHC 34.2 32.0 - 36.0 g/dL 03/13/2020 1:31 PM [facility] Platelet Count 84(L) 150 - 400 10 3/uL 03/13/2020 1:31 PM [facility] Comment:Checked by periphera l smear. RDW-SD 47.7 36.0 - 50.0 fL 03/13/2020 1:31 PM [facility] RDW-CV 13.3 11.2 - 14.8 % 03/13/2020 1:31 PM [facility] MPV 10.3 9.3 - 12.8 fL 03/13/2020 1:31 PM [facility] nRBC Absolute 0.00 0 10 3/uL 03/13/2020 1:31 PM [facility] nRBC Auto 0.0 0 /100 WBC 03/13/2020 1:31 PM [facility] Neutrophils % 68.3 35.0 - 70.0 % 03/13/2020 1:31 PM [facility] Lymphocytes % 22.1 19.7 - 55.1 % 03/13/2020 1:31 PM [facility] Monocytes % 6.1 3.0 - 15.0 % 03/13/2020 1:31 PM [facility] Eosinophils % 2.2 0.0 - 6.0 % 03/13/2020 1:31 PM [facility] Basophil % 0.9 0.0 - 1.5 % 03/13/2020 1:31 PM [facility] Neutrophils Absolute 3.7 1.6 - 7.0 10 3/uL 03/13/2020 1:31 PM [facility] Lymphocyte Absolute 1.2 0.8 - 2.9 10 3/uL 03/13/2020 1:31 PM [facility] Monocytes Absolute 0.33 0.14 - 0.66 10 3/uL 03/13/2020 1:31 PM [facility] Eosinophils Absolute 0.12 0.00 - 0.45 10 3/uL 03/13/2020 1:31 PM [facility] Basophils Absolute 0.05 0.00 - 0.06 10 3/uL 03/13/2020 1:31 PM [facility] Immature Granulocytes % 0.4 0.0 - 1.0 % 03/13/2020 1:31 PM [facility] Blood BLOOD SPECIMEN / Unknown Lab Venipuncture / Unknown 03/13/2020 12:50 PM CDT 03/13/2020 1:07 PM CDT Marla Soto PA-C LAB - HEMATOLOG Y ORDERABLES [facility] [address] [place] [address], [facility] [phone] * (ABNORMAL) COMPREHENSIVE METABOLIC PANEL (03/13/2020 12:50 PM CDT) Only the most recent of27 resultswithin the time period is included. BUN 8 7 - 26 mg/dL 03/13/2020 1:37 PM [facility] Creatinine 0.7 0.6 - 1.2 mg/dL 03/13/2020 1:37 PM [facility] Sodium 139 136 - 145 mmol/L 03/13/2020 1:37 PM [facility] Potassium 3.5 3.5 - 4.5 mmol/L 03/13/2020 1:37 PM [facility] Chloride 102 98 - 107 mmol/L 03/13/2020 1:37 PM [facility] CO2 30(H) 22 - 29 mmol/L 03/13/2020 1:37 PM [facility] Glucose 170(H) 70 - 115 mg/dL 03/13/2020 1:37 PM [facility] Calcium 8.5 8.4 - 10.2 mg/dL 03/13/2020 1:37 PM [facility] Protein Total 7.3 6.0 - 8.3 g/dL 03/13/2020 1:37 PM [facility] Albumin 2.5(L) 3.4 - 5.0 g/dL 03/13/2020 1:37 PM [facility] Bilirubin Total 4.8(H) 0.2 - 1.2 mg/dL 03/13/2020 1:37 PM [facility] Alkaline Phosphatase 208(H) 40 - 150 Units/L 03/13/2020 1:37 PM [facility] ALT 51 0 - 55 Units/L 03/13/2020 1:37 PM [facility] AST 77(H) 5 - 34 Units/L 03/13/2020 1:37 PM [facility] Anion Gap 11 8 - 18 03/13/2020 1:37 PM [facility] BUN/Creatinine Ratio 11 7 - 23 03/13/2020 1:37 PM [facility] Osmolality Calculated 290 270 - 300 mOsm/kg 03/13/2020 1:37 PM [facility] Albumin/Globulin Ratio 0.5(L) 1.1 - 2.3 03/13/2020 1:37 PM [facility] eGFR >60 >60 mL/min/1.7 3 m2 03/13/2020 1:37 PM [facility] Blood BLOOD SPECIMEN / Unknown Lab Venipuncture / Unknown 03/13/2020 12:50 PM CDT 03/13/2020 1:07 PM CDT Marla Soto PA-C LAB - CHEMISTRY ORDERABLES [facility] [address] [place] [phone], [facility] [phone] * HEPATITIS B CORE ANTIBODY (03/13/2020 12:50 PM CDT) Only the most recent of3 resultswithin the time period is included. HBc Antibody Total Non-reacti ve Non-reacti ve 03/13/2020 1:58 PM [facility] Blood BLOOD SPECIMEN / Unknown Lab Venipuncture / Unknown 03/13/2020 12:50 PM CDT 03/13/2020 1:07 PM CDT Marla Ly Brittany JONES-C LAB - CHEMISTRY ORDERABLES Performing Organization Address City/[facility]/ZIP Co de Phone Number [address] [phone], [facility] [phone] * HEPATITIS B SURFACE ANTIGEN W RFLX CONFIRMATION (03/13/2020 12:50 PM CDT) Only the most recent of3 resultswithin the time period is included. Hepatitis B Virus Surface Antigen Non-reacti ve Non-reacti ve 03/13/2020 1:58 PM CDT [facility] Blood BLOOD SPECIMEN / Unknown Lab Venipuncture / Unknown 03/13/2020 12:50 PM CDT 03/13/2020 1:07 PM CDT Marla Malachi Brittany JONES-C LAB - CHEMISTRY ORDERABLES Performing Organization Address [facility] Co de Phone Number [address] [phone], [facility] [phone] * MI LIVER ELASTOGRAPHY (01/25/2019 12:58 PM CDT) Narrative Israel Sparrow MD - 01/25/2019 12:58 PM CDT Israel Sparrow MD 01/25/2019 12:58 PM Diagnosis: Hepatitis C RN verified patient not , no implanted devices and NPO for prior 3 hours. Vital signs taken, procedure explained and consent signed. Date of Exam: 01/24/2019 Liver Stiffness: (E, kPa) median: 43.1 IQR (interquartile range): 6.6 IQR/Median% (ideally < 30%): 15% CAP (controlled attenuation parameter): 240 Technical Difficulty: Yes Ordering Provider: Dr. Damian Pulido Phone Fax Fibroscan interpretation: I have personally reviewed the Fibroscan report and associated tracings. The calculated liver stiffness (E, kPa) indicates that: The probability of advanced liver fibrosis is: very high and the probability of complications of portal hypertension is also high. The loss of ultrasound signal, (controlled attenuation parameter, CAP [dB/m]), indicates that the probability of hepatic steatosis is: low. Israel Sparrow MD The following criteria are used to indicate the probability of advanced (stage 3-4) fibrosis: < 7.0 kPa: low 7.0-8.9 kPa: low to moderate 9.0-14.9 kPa: moderate 15-20 kPa: high > 20 kPa: very high Liver stiffness > 20 kPa is also associated with a high probability of complications of portal hypertension including varices and ascites. Liver stiffness > 50 kPa is associated with a high risk of variceal bleeding. Note: Liver stiffness is increased by factors other than fibrosis including passive congestion, infiltrative processes, active alcoholism, biliary obstruction and marked inflammation. The interpretation of the Fibroscan result provided above may not have taken such factors into account. Disease etiology also influences Fibroscan cutoff values for fibrosis stages and the following cutoffs have been proposed (Jonathan et al, Clin Gastro Hepatol 2015; 13:27-36): Cutoffs for Stage 3 and Stage 4 fibrosis respectively: Hepatitis B: >9 and >11.7 kPa Hepatitis C: >9.5 and >12.5 kPa HCV-HIV: >11 and >14 kPa Cholestatic liver diseases: >10 and >17.9 kPa NAFLD/NEWELL: >10 and >14 kPa CAP estimates of steatosis: normal <200 dB/m maybe present 200 to 250 dB/m moderate 250-300 dB/m substantial > 300 dB/m (Note that Fibroscan is not a quantitative measure of liver fat and the risk of NAFLD progression is unrelated to the degree of steatosis.) These criteria are estimates and may change as additional supporting data becomes available. [email or web address].com/ged-edmppbxj-[email or web address] Damian Pulido MD PROCEDURE/MINOR SURG ICAL ORDERABLES * HIV-1 HIV-2 ANTIGEN/ANTIBODY (01/24/2019 1:40 PM CDT) Only the most recent of2 resultswithin the time period is included. HIV Antigen/Antibod y 1 & 2 Non-reacti ve Non-react shady 01/24/2019 2:40 PM CDT [facility] Comment: Neither HIV-1 p24 Antigen nor HIV-1/HIV-2 Antibodies are detected. Blood BLOOD SPECIMEN / Unknown Lab Venipuncture / Unknown 01/24/2019 1:40 PM CDT 01/24/2019 1:53 PM CDT Damian Pulido MD LAB - HEMATOLOGY ORD ERABLES [address] [phone] * US TIPS W ABDOMEN LIMITED (10/12/2018 9:09 AM CDT) Only the most recent of2 resultswithin the time period is included. Anatomical Region Laterality Modality Ultrasound 10/12/2018 9:07 AM CDT Impressions 10/12/2018 12:07 PM CDT IMPRESSION: 1. Patent transjugular intrahepatic portosystemic shunt (TIPS). 2. Hepatic cirrhosis without discrete hepatic lesion or intrahepatic biliary dilation. 3. Sequela of portal hypertension including splenomegaly and ascites. Dictated by Sergey Kumari MD (resident). This report was approved by Sergey Kumari on 10/12/2018 10:15 AM . I, Dr. GLO URIARTE M.D. have personally reviewed and interpreted this examination/study. This report was electronically signed by GLO URIARTE M.D. on 10/12/2018 12:07 PM . Narrative 10/12/2018 12:07 PM CDT EXAMINATION: 1. Limited abdominal sonogram 2. Color and spectral Doppler evaluation of the hepatic vasculature HISTORY: Status-post TIPS revision COMPARISON: TIPS ultrasound dated 08/25/2018. FINDINGS: Abdomen: The liver has a coarse echotexture and nodular surface. No discrete hepatic mass or intrahepatic biliary dilation is seen. No gallstones or pericholecystic fluid is seen. The gallbladder wall is normal in thickness, measuring 3 mm. The common bile duct is nondilated, measuring 4 mm. The right kidney measures 11.4 x 5.3 x 5.8 cm. Limited views of the right kidney reveal no evidence of nephrolithiasis or hydronephrosis. The spleen is enlarged, measuring 17.4 cm in length. The visible pancreas is normal in echogenicity. Small to moderate volume ascites is present. Liver Doppler: Proximal TIPS velocity: 125 cm/s (previously 148 cm/s) Middle TIPS velocity: 161 cm/s (previously 237-255 cm/s) Distal TIPS velocity: 160-181 cm/s (previously 198 cm/s) The TIPS is patent. There is reversal of flow in the left portal vein flow consistent with portosystemic shunting. The main portal vein velocity is 34-43 cm/s. The right, middle, and left hepatic veins are patent with normal waveforms. The proper hepatic artery is patent with normal arterial waveform and resistive index of 0.60. Procedure Note Glo Uriarte MD - 10/12/2018 EXAMINATION: 1. Limited abdominal sonogram 2. Color and spectral Doppler evaluation of the hepatic vasculature HISTORY: Status-post TIPS revision COMPARISON: TIPS ultrasound dated 08/25/2018. FINDINGS: Abdomen: The liver has a coarse echotexture and nodular surface. No discrete hepatic mass or intrahepatic biliary dilation is seen. No gallstones or pericholecystic fluid is seen. The gallbladder wall is normal in thickness, measuring 3 mm. The common bile duct is nondilated, measuring 4 mm. The right kidney measures 11.4 x 5.3 x 5.8 cm. Limited views of theright kidney reveal no evidence of nephrolithiasis or hydronephrosis. Thespleen is enlarged, measuring 17.4 cm in length. The visible pancreas is normal in echogenicity. Small to moderate volume ascites is present. Liver Doppler: Proximal TIPS velocity: 125 cm/s (previously 148 cm/s) Middle TIPS velocity: 161 cm/s (previously 237-255 cm/s) Distal TIPS velocity: 160-181 cm/s (previously 198 cm/s) The TIPS is patent. There is reversal of flow in the left portal veinflow consistent with portosystemic shunting. The main portal vein velocity is 34-43 cm/s. The right, middle, and left hepatic veins are patent with normal waveforms. The proper hepatic artery is patent with normalarterial waveform and resistive index of 0.60. IMPRESSION: 1. Patent transjugular intrahepatic portosystemic shunt (TIPS). 2. Hepatic cirrhosis without discrete hepatic lesion or intrahepatic biliary dilation. 3. Sequela of portal hypertension including splenomegaly and ascites. Dictated by Sergey Kumari MD (resident). This report was approved by Sergey Kumari on 10/12/2018 10:15 AM . IDr. GLO M.D. have personally reviewed and interpretedthis examination/study. This report was electronically signed by GLO URIARTE M.D. on10/12/2018 12:07 PM . Lloyd Cerna MD US ORDERABLES * IR TIPS REVISION (09/13/2018 2:26 PM CDT) Anatomical Region Laterality Modality X-Ray Angiograph y 09/13/2018 3:21 PM CDT Impressions 09/13/2018 3:29 PM CDT Impression: Portal venogram and pressure measurements reveal PSG of 8mmHg and brisk flow through TIPS without focal stenosis. No evidence of TIPS malfunction. Follow up: The patient should be scheduled for Liver Doppler at next scheduled visit with Dr. Pulido. Patient counseled on Q6 month doppler ultrasound screening, but also about clinical indications of TIPS malfunction (increased wt gain & frequency/volume of paracenteses) Dr. Lloyd Hinton, performed/was present throughout the procedure and provided the moderate sedation service. Please see the nursing sedation flowsheet. This report was electronically signed by LLOYD CERNA on 09/13/2018 3:29 PM . Narrative 09/13/2018 3:29 PM CDT History: 47 year old female with cirrhosis s/p TIPS placement for refractory ascites here for image-guided TIPS revision given elevated doppler ultrasound velocities on baseline imaging. Clinically, patient has required only one paracentesis last week of 2.5L removal, previously requiring ~7L each week. She continues to have bilateral L>R LE pitting edema, moderately improved with Lasix initiation. Operators: 1.Dr. Lloyd Cerna, Attending Physician Anesthesia: 1.Local anesthesia - 5 mL of 1% lidocaine 2.Intravenous conscious sedation - Versed 1 mg and Fentanyl 50 mcg Procedure: 1.Ultrasound-guided access of the right internal jugular vein. 2.Hepatic venogram with pressure measurement. Start time: 1409 End time: 1430 Sedation initiated time: 1408 Fluoroscopic time: 1.8 minutes Contrast: 40 mL of Iso-300 Procedure in detail: The procedure, risks, and possible complications were explained to the patient in detail, and informed consent was obtained. The patient was brought to the angiography suite and placed supine on the procedure table. A assembler billiard table film of the upper abdomen was obtained, which demonstrated a TIPS in the right upper quadrant. The patient received intravenous Versed and Fentanyl for conscious sedation. A qualified radiology nurse monitored the patients vital signs throughout the procedure. The right neck was prepped and draped in the usual sterile manner. Limited ultrasound of the right internal jugular vein demonstrated patency and compressibility. A ng scale image was documented. After instillation of 1% lidocaine for local anesthesia, a small skin incision was made in the right lower neck. Under real time ultrasound guidance, the right internal jugular vein was accessed using a micropuncture needle. The needle entry was documented. After a series of exchanges, a 6-Angolan vascular sheath was placed. Using a 5-Angolan KMP & OmniFlush catheter, the right portal vein was catheterized and venogram was obtained, which demonstrated a patent TIPS. This was repeated in steep ROBLEDO obliquity, corroborating no focal stenosis or other acute findings. Subsequently, venous pressures were measured: Right atrium: 10 mmHg Portal vein: 18 mmHg Portosystemic gradient (portal-RA): 8 mmHg The sheath was removed, hemostasis was achieved with manual compression, and sterile dressing was applied. The patient tolerated the procedure well and was transferred to the holding area in stable condition. There were no immediate complications associated with the procedure. Procedure Note Lloyd Cerna MD - 09/13/2018 History: 47 year old female with cirrhosis s/p TIPS placement for refractory ascites here for image-guided TIPS revision given elevated doppler ultrasound velocities on baseline imaging. Clinically, patienthas required only one paracentesis last week of 2.5L removal, previously requiring ~7L each week. She continues to have bilateral L>R LE pitting edema, moderately improved with Lasix initiation. Operators: 1.Dr. Lloyd Cerna, Attending Physician Anesthesia: 1.Local anesthesia - 5 mL of 1% lidocaine 2.Intravenous conscious sedation - Versed 1 mg and Fentanyl 50 mcg Procedure: 1.Ultrasound-guided access of the right internal jugular vein. 2.Hepatic venogram with pressure measurement. Start time: 1409 End time: 1430 Sedation initiated time: 1408 Fluoroscopic time: 1.8 minutes Contrast: 40 mL of Iso-300 Procedure in detail: The procedure, risks, and possible complications were explained to the patient in detail, and informed consent was obtained. The patient was brought to the angiography suite and placed supine on the proceduretable. A assembler billiard table film of the upper abdomen was obtained, which demonstrated aTIPS in the right upper quadrant. The patient received intravenous Versed and Fentanyl for conscious sedation. A qualified radiology nurse monitored the patients vital signs throughout the procedure. The right neck was prepped and draped in the usual sterile manner.Limited ultrasound of the right internal jugular vein demonstrated patency and compressibility. A ng scale image was documented. After instillationof 1% lidocaine for local anesthesia, a small skin incision was made in the right lower neck. Under real time ultrasound guidance, the rightinternal jugular vein was accessed using a micropuncture needle. The needle entry was documented. After a series of exchanges, a 6-Angolan vascular sheath was placed. Using a 5-Angolan KMP & OmniFlush catheter, the right portal vein was catheterized and venogram was obtained, which demonstrated a patentTIPS. This was repeated in steep ROBLEDO obliquity, corroborating no focalstenosis or other acute findings. Subsequently, venous pressures were measured: Right atrium: 10 mmHg Portal vein: 18 mmHg Portosystemic gradient (portal-RA): 8 mmHg The sheath was removed, hemostasis was achieved with manual compression, and sterile dressing was applied. The patient tolerated the procedurewell and was transferred to the holding area in stable condition. There wereno immediate complications associated with the procedure. Impression: Portal venogram and pressure measurements reveal PSG [id number] and brisk flow through TIPS without focal stenosis. No evidence of TIPS malfunction. Follow up: The patient should be scheduled for Liver Doppler at next scheduled visit with Dr. Pulido. Patient counseled on Q6 month doppler ultrasound screening, but also about clinical indications of TIPS malfunction (increased wt gain & frequency/volume of paracenteses) I, Dr. Lloyd Cerna, performed/was present throughout the procedure and provided the moderate sedation service. Please see the nursing sedation flowsheet. This report was electronically signed by LLOYD CERNA on 09/13/2018 3:29 PM. Damian Pulido MD IR ORDERABLES * LARGE VOLUME PARACENTESIS (09/09/2018 3:12 PM CDT) Report Endoscopy POC Endoscopy Department Report _ Patient Name: Domenica Rivera Procedure Date: 09/09/2018 3:12 PM Date of : 1970 Classification: Outpatient Gender: Female _ Providers: Marla Soto PA-C, Israel Sparrow MD Referring MD: Procedure: Paracentesis (Repeat) Indications: Ascites, Ascites shown on ultrasound, Diagnostic to rule out peritonitis, Cirrhosis, Cirrhosis (Alcoholic), Portal hypertension, Renal disease Medications: 1% Lidocaine 10 mL SubQ Description of Procedure: After obtaining informed consent, the procedure was performed. Throughout the procedure, the patient's blood pressure, pulse, and oxygen saturations were monitored continuously.The paracentesis was accomplished without difficulty. The patient tolerated the procedure well. Findings: Prior to the procedure, the abdomen was examined and demonstrated moderate distention with ascites and a fluid wave to be present. With the patient in a supine with head elevated position, the procedure site was sterilely prepped using chloroprep and draped in the usual fashion. 15 mL of 1% lidocaine was infiltrated into the skin and subcutaneous tissues. Using a left lower quadrant approach, a small stab incision was made with a disposable blade and a 5 inch 12 gauge paracentesis needle and cannula system was inserted into the peritoneal cavity under ultrasound guidance. Aspiration demonstrated no blood and good return of peritoneal fluid. One pass was made. The trocar was then removed leaving the catheter in place. 2.5 liters of clear, yellow fluid was withdrawn using a vacuum bottle. Fluid was sent for culture and sensitivities. The incision site was closed with exofin. A dressing were applied. 50 mL of 25% Albumin was administered after the procedure to treat the patient for underlying renal failure. Estimated Blood Loss: Estimated blood loss: none. Complications: No immediate complications. Impression: - Paracentesis successfully performed. - Test results pending. Recommendation: - Discharge patient to home (ambulatory). - Return to liver clinic as previously scheduled. - Repeat paracentesis PRN for therapeutic purposes. Attending Participation: I was present for the dolan portions of this procedure and either I or my colleague was immediately available for all non-dolan portions of the procedure. Procedure Code(s): --- Professional --- 61108, Abdominal paracentesis (diagnostic or therapeutic); with imaging guidance Diagnosis Code(s): --- Professional --- K70.31, Alcoholic cirrhosis of liver with ascites R18.8, Other ascites K74.60, Unspecified cirrhosis of liver K76.6, Portal hypertension N28.9, Disorder of kidney and ureter, unspecified CPT copyright 2016 [employer]. All rights reserved. The codes documented in this report are preliminary and upon aligner typewriter review may be revised to meet current compliance requirements. Marla Soto PA-C 09/09/2018 3:27:53 PM This report has been signed electronically. _ Israel Sparrow MD Note Initiated On: 09/09/2018 3:12 PM Number of Addenda: 0 [facility] [address] [place] [address] [facility] 09/09/2018 3:12 PM CDT Marla Soto PA-C GI PROCEDURE OR DERABLES [facility] * (ABNORMAL) CELL COUNT W DIFFERENTIAL FLUID (09/09/2018 11:22 AM CDT) Only the most recent of53 resultswithin the time period is included. Color Fluid Yellow(A) Colorless, Straw 09/09/2018 11:59 AM T [facility] Clarity Fluid Cloudy(A) Clear 09/09/2018 11:59 AM T [facility] Volume Fluid 2.0 mL 09/09/2018 11:59 AM T [facility] WBC Fluid 241 Reference Range Not Established /uL 09/09/2018 11:59 AM T [facility] RBC Fluid 3,000 Reference Range Not Established /uL 09/09/2018 11:59 AM [facility] Differential Manual Differential to follow. 09/09/2018 11:59 AM T [facility] Fluid (Ascities) Collection / Unknown 09/09/2018 11:22 AM CDT 09/09/2018 11:50 AM CDT Narrative [facility] - 09/09/2018 11:59 AM CDT No established reference range for WBC and RBC body fluid count. Marla Soto PA-C LAB - BODY FLUI D ORDERABLES Performing Organization Address [facility] Co de Phone Number [address] [phone] * DIFFERENTIAL MANUAL FLUID (09/09/2018 11:22 AM CDT) Only the most recent of53 resultswithin the time period is included. Segs % Fluid 4 % 09/09/2018 12:32 PM [facility] Lymphocytes % Fluid 6 % 09/09/2018 12:32 PM [facility] Monocytes % Fluid 14 % 019 12:32 PM [facility] Macrophages % Fluid 64 % 09/09/2018 12:32 PM [facility] Mesothelials % Fluid 12 % 09/09/2018 12:32 PM [facility] Fluid (Ascities) Collection / Unknown 09/09/2018 11:22 AM CDT 09/09/2018 11:50 AM CDT Marla JONES-Jovanna LAB - BODY FLUI D ORDERABLES Performing Organization Address City/[facility]/ZIP Co de Phone Number [address] [place] [address], [facility] [phone] * CULTURE FLUID+GRAM STAIN (09/09/2018 11:22 AM CDT) Only the most recent of44 resultswithin the time period is included. Culture No growth JAM 09/14/2018 9:14 AM CDT [facility] [employer] MICROBIOLOGY Fluid ASCITIC FLUID SPECIMEN / Unknown Collection / Unknown 09/09/2018 11:22 AM CDT 09/09/2018 11:50 AM CDT Marla Soto PA-C LAB - MICROBIOL OGY ORDERABLES [facility] [employer] MICROBIOLOGY [address] [place] [address], [facility] [phone] * CARDIAC EKG ORDER (08/29/2018 3:04 PM CDT) Only the most recent of3 resultswithin the time period is included. Narrative 08/29/2018 3:04 PM CDT Ordered by an unspecified provider. Scanned Document CARDIAC SERVICES ORD ERABLES * LARGE VOLUME PARACENTESIS (08/12/2018 3:49 PM INSTRUCTIONAL SPECIALIST) Report Endoscopy POC Endoscopy Department Report _ Patient Name: Domenica Rivera Procedure Date: 08/12/2018 3:49 PM Date of : 1970 Classification: Outpatient Gender: Female _ Providers: Marla Soto PA-C, Kellee Lind MD: Procedure: Paracentesis (Repeat) Indications: Ascites, Ascites shown on ultrasound, Diagnostic to rule out peritonitis, Cirrhosis, Cirrhosis (Alcoholic), Portal hypertension, Renal disease Medications: 1% Lidocaine 10 mL SubQ Description of Procedure: After obtaining informed consent, the procedure was performed. Throughout the procedure, the patient's blood pressure, pulse, and oxygen saturations were monitored continuously. The paracentesis was accomplished without difficulty. The patient tolerated the procedure well. Findings: Prior to the procedure, the abdomen was examined and demonstrated a fluid wave to be present. With the patient in a supine with head elevated position, the procedure site was sterilely prepped using chloroprep and draped in the usual fashion. 10 mL of 1% lidocaine was infiltrated into the skin and subcutaneous tissues. Using a left lower quadrant approach, a small stab incision was made with a disposable blade and a 5 inch 12 gauge paracentesis needle and cannula system was inserted into the peritoneal cavity under ultrasound guidance. Aspiration demonstrated no blood and good return of peritoneal fluid. One pass was made. The trocar was then removed leaving the catheter in place. 2.5 liters of clear, yellow fluid was withdrawn using a vacuum bottle. Fluid was sent for cell count and differential and culture and sensitivities. The incision site was closed with exofin and covered with tegaderm. Gauze and a Band-Aid were applied. 50 mL of 25% Albumin was administered after the procedure to treat the patient for underlying renal failure. Estimated Blood Loss: Estimated blood loss: none. Complications: No immediate complications. Impression: - Paracentesis successfully performed. - Test results pending. Recommendation: - Discharge patient to home (ambulatory). - Return to liver clinic as previously scheduled. - Repeat paracentesis PRN for therapeutic purposes. Attending Participation: I was present for the dolan portions of this procedure and either I or my colleague was immediately available for all non-dolan portions of the procedure. Procedure Code(s): --- Professional --- 79953, Abdominal paracentesis (diagnostic or therapeutic); with imaging guidance Diagnosis Code(s): --- Professional --- K70.31, Alcoholic cirrhosis of liver with ascites R18.8, Other ascites K74.60, Unspecified cirrhosis of liver K76.6, Portal hypertension N28.9, Disorder of kidney and ureter, unspecified CPT copyright 2016 [employer]. All rights reserved. The codes documented in this report are preliminary and upon aligner typewriter review may be revised to meet current compliance requirements. Marla Soto PA-C 08/12/2018 3:52:56 PM This report has been signed electronically. Samer Kenny, Note Initiated On: 08/12/2018 3:49 PM Number of Addenda: [address] [address] [facility] [place] 08/12/2018 3:49 PM INSTRUCTIONAL SPECIALIST Marla Soto PA-C GI PROCEDURE OR DERABLES Performing Organization Address City/[facility] Co de Phone Number [facility] * CARDIAC PROCEDURE ORDER (08/09/2018 4:03 PM INSTRUCTIONAL SPECIALIST) Narrative 08/09/2018 4:03 PM INSTRUCTIONAL SPECIALIST Ordered by an unspecified provider. Scanned Document CARDIAC SERVICES ORD ERABLES * (ABNORMAL) GLUCOSE - POINT OF CARE (08/06/2018 11:48 AM INSTRUCTIONAL SPECIALIST) Only the most recent of22 resultswithin the time period is included. Glucose WB/POC 268(H) 70 - 115 mg/dL 08/06/2018 11:59 AM INSTRUCTIONAL SPECIALIST [facility] Specimen Type Arterial/C apillary 08/06/2018 11:59 AM INSTRUCTIONAL SPECIALIST [facility] Blood BLOOD SPECIMEN / Unknown 08/06/2018 11:48 AM INSTRUCTIONAL SPECIALIST 08/06/2018 11:59 AM INSTRUCTIONAL SPECIALIST Narrative [facility] - 08/06/2018 11:59 AM INSTRUCTIONAL SPECIALIST Skein Straightener: SHEA NEAL Musa Salvador MD LAB - POINT OF CARE ORDERABLES Performing Organization Address City/[facility] Co de Phone Number [address] [phone] * XR CHEST 1VW PORTABLE (08/06/2018 10:04 AM INSTRUCTIONAL SPECIALIST) Anatomical Region Laterality Modality Chest Radiographic Harmony ging 08/06/2018 10:3 9 AM INSTRUCTIONAL SPECIALIST Impressions 08/06/2018 4:05 PM INSTRUCTIONAL SPECIALIST FINDINGS/IMPRESSION: There is mild pulmonary vascular congestion. There is no focal consolidation, pleural effusion, or pneumothorax. The cardiomediastinal silhouette is normal. The visible bony thorax is intact. IMPRESSION: Mild pulmonary vascular congestion. No evidence of pneumonia, pleural effusion or pneumothorax. Dictated by Paolo Mukherjee MD (vice president financial). This report was approved by Paolo Mukherjee on 08/06/2018 3:[address] ASTER Hinton M.D. have personally reviewed and interpreted this examination/study. This report was electronically signed by ASTER COTTON M.D. on 08/06/2018 4:05 PM . Narrative 08/06/2018 4:05 PM INSTRUCTIONAL SPECIALIST EXAMINATION: XR CHEST 1VW PORTABLE HISTORY: shortness of breath COMPARISON: Comparison is made with a study from 12/24/2017 Procedure Note Aster Cotton MD - 08/06/2018 EXAMINATION: XR CHEST 1VW PORTABLE HISTORY: shortness of breath COMPARISON: Comparison is made with a study from 12/24/2017 FINDINGS/IMPRESSION: There is mild pulmonary vascular congestion. There is no focal consolidation, pleural effusion, or pneumothorax. The cardiomediastinal silhouette is normal. The visible bony thorax is intact. IMPRESSION: Mild pulmonary vascular congestion. No evidence of pneumonia, pleural effusion or pneumothorax. Dictated by Paolo Mukherjee MD (vice president financial). This report was approved by Paolo Mukherjee on 08/06/2018 3:[address] ASTER Hinton M.D. have personally reviewed and interpreted this examination/study. This report was electronically signed by ASTER COTTON M.D. on 08/06/2018 4:05 PM . Imtiaz Carreno MD DIAGNOSTIC IMAGING O RDERABLES * (ABNORMAL) MAGNESIUM BLOOD (08/06/2018 2:49 AM INSTRUCTIONAL SPECIALIST) Magnesium 1.1(L) 1.6 - 2.6 mg/dL 08/06/2018 3:34 AM [facility] Blood BLOOD SPECIMEN / Unknown Lab Venipuncture / Unknown 08/06/2018 2:49 AM INSTRUCTIONAL SPECIALIST 08/06/2018 3:11 AM INSTRUCTIONAL SPECIALIST Imtiaz Carreno MD LAB - CHEMISTRY ORDJudy MOREL Performing Organization Address [facility]/ZIP Co de Phone Number [address] [phone] * DIRECT NANCY (08/05/2018 10:40 AM INSTRUCTIONAL SPECIALIST) Direct Nancy (DEJA) NEG 08/05/2018 12:14 PM [facility] Blood BLOOD SPECIMEN / Unknown 08/05/2018 10:40 AM INSTRUCTIONAL SPECIALIST 08/05/2018 10:46 AM INSTRUCTIONAL SPECIALIST Brett Ding MD LAB - BLOOD BANK ORD ERABLES Performing Organization Address [facility] Co de Phone Number [facility] [address] [place] [address] * (ABNORMAL) PTT [facility] (08/05/2018 7:43 AM INSTRUCTIONAL SPECIALIST) Only the most recent of2 resultswithin the time period is included. APTT 38.5(H) 23.0 - 38.4 Seconds 08/05/2018 9:04 AM [facility] Comment: Suggested therapeutic range for full dose I.V. heparin therapy for venous thromboembolism is 66.0-91.0 seconds. Blood BLOOD SPECIMEN / Unknown Lab Venipuncture / Unknown 08/05/2018 7:43 AM INSTRUCTIONAL SPECIALIST 08/05/2018 8:49 AM INSTRUCTIONAL SPECIALIST Brett Ding MD LAB - COAGULATION OR DERABLES Performing Organization Address [facility] Co de Phone Number [address] [phone] * (ABNORMAL) BILIRUBIN DIRECT (08/05/2018 7:43 AM INSTRUCTIONAL SPECIALIST) Bilirubin Conjugated 1.5(H) 0.0 - 0.5 mg/dL 08/05/2018 9:12 AM [facility] Bilirubin Unconjugated 1.6 Unconjugated Bilirubin is a calculated value: Reference ranges have not been established. mg/dL 08/05/2018 9:12 AM [facility] Blood BLOOD SPECIMEN / Unknown Lab Venipuncture / Unknown 08/05/2018 7:43 AM INSTRUCTIONAL SPECIALIST 08/05/2018 8:50 AM INSTRUCTIONAL SPECIALIST Bertt Ding MD LAB - CHEMISTRY ORDE MARIA TERESA [address] [phone] * EKG 12-LEAD (08/05/2018 7:08 AM [facility]) Ventricular Rate 84 BPM [facility] Atrial Rate 84 BPM [facility] M[facility] P-R Interval 132 ms H MUSE QRS Duration ms 78 ms H MUSE Q-T Interval ms 414 ms [facility] MUSE QTC Calculation (Bezet) 489 ms [facility] Calculated P [place] 68 degrees [facility] Calculated R [place] 68 degrees [facility] Calculated T [place] 44 degrees [facility] Interpretation EKG NORMAL SINUS RHYTHM Low voltage limb leads ABNORMAL ECG NO PREVIOUS ECGS AVAILABLE Confirmed by Marci GARCIA, SANTOSH ([id number]), art editor Demi Silva ([id number]) on 08/18/2018 7:38:58 PM [facility] M[facility] 08/05/2018 7:08 AM INSTRUCTIONAL SPECIALIST 08/18/2018 7:38 PM CDT Brett Ding MD ECG ORDERABLES [facility] * (ABNORMAL) FIBRINOGEN ACTIVITY (08/05/2018 3:09 AM INSTRUCTIONAL SPECIALIST) Only the most recent of2 resultswithin the time period is included. Fibrinogen Clauss 147(L) 200 - 400 mg/dL 08/05/2018 6:55 AM [facility] Blood BLOOD SPECIMEN / Unknown Lab Venipuncture / Unknown 08/05/2018 3:09 AM INSTRUCTIONAL SPECIALIST 08/05/2018 6:31 AM INSTRUCTIONAL SPECIALIST Brtet Ding MD LAB - COAGULATION OR DERABLES Performing Organization Address [facility] [place] [address], [facility] [phone] * (ABNORMAL) RBC MORPHOLOGY (08/05/2018 3:09 AM INSTRUCTIONAL SPECIALIST) RBC Morphology Normal 08/05/2018 7:08 AM [facility] Platelet Estimate Decreased( A) Adequate 08/05/2018 7:08 AM [facility] Blood BLOOD SPECIMEN / Unknown Lab Venipuncture / Unknown 08/05/2018 3:09 AM INSTRUCTIONAL SPECIALIST 08/05/2018 3:24 AM INSTRUCTIONAL SPECIALIST Brett Ding MD LAB - HEMATOLOGY ORD ERABLES Performing Organization Address [facility] Co de Phone Number [address] [phone] * (ABNORMAL) CBC W/O DIFFERENTIAL (08/05/2018 3:09 AM INSTRUCTIONAL SPECIALIST) Only the most recent of4 resultswithin the time period is included. WBC 7.3 3.5 - 10.5 10 3/uL 08/05/2018 3:48 AM [facility] Comment:All CBC parameters h ave been checked. RBC 3.40(L) 3.90 - 5.00 10 6/uL 08/05/2018 3:48 AM [facility] Hemoglobin 11.0(L) 12.0 - 15.5 g/dL 08/05/2018 3:48 AM [facility] Hematocrit 32.7(L) 35.0 - 45.0 % 08/05/2018 3:48 AM [facility] MCV 96.2 81.0 - 97.0 fL 08/05/2018 3:48 AM [facility] MCH 32.4 28.0 - 34.0 pg 08/05/2018 3:48 AM [facility] MCHC 33.6 32.0 - 36.0 g/dL 08/05/2018 3:48 AM [facility] Platelet Count 54(L) 150 - 400 10 3/uL 08/05/2018 3:48 AM [facility] RDW-SD 44.3 36.0 - 50.0 fL 08/05/2018 3:48 AM [facility] RDW-CV 12.6 11.2 - 14.8 % 08/05/2018 3:48 AM [facility] MPV 9.8 9.3 - 12.8 fL 08/05/2018 3:48 AM [facility] nRBC Absolute 0.00 0 10 3/uL 08/05/2018 3:48 AM [facility] nRBC Auto 0.0 0 /100 WBC 08/05/2018 3:48 AM [facility] Blood BLOOD SPECIMEN / Unknown Lab Venipuncture / Unknown 08/05/2018 3:09 AM INSTRUCTIONAL SPECIALIST 08/05/2018 3:24 AM INSTRUCTIONAL SPECIALIST Brett Ding MD LAB - HEMATOLOGY ORD ERABLES [address] [phone] * LDH BLOOD (08/05/2018 3:09 AM INSTRUCTIONAL SPECIALIST) LDH Total 228 125 - 243 Units/L 08/05/2018 3:59 AM [facility] Blood BLOOD SPECIMEN / Unknown Lab Venipuncture / Unknown 08/05/2018 3:09 AM INSTRUCTIONAL SPECIALIST 08/05/2018 3:24 AM INSTRUCTIONAL SPECIALIST Brett Ding MD LAB - CHEMISTRY ORDE RABKAYY [address] [phone] * (ABNORMAL) HAPTOGLOBIN (08/05/2018 3:09 AM INSTRUCTIONAL SPECIALIST) Haptoglobin <8(L) 14 - 258 mg/dL 08/05/2018 4:00 AM [facility] Blood BLOOD SPECIMEN / Unknown Lab Venipuncture / Unknown 08/05/2018 3:09 AM INSTRUCTIONAL SPECIALIST 08/05/2018 3:24 AM INSTRUCTIONAL SPECIALIST Brett Ding MD LAB - CHEMISTRY BOY MOREL [address] [phone] * (ABNORMAL) HEPATIC FUNCTION PANEL (08/04/2018 6:48 PM INSTRUCTIONAL SPECIALIST) Only the most recent of2 resultswithin the time period is included. Protein Total 5.9(L) 6.0 - 8.3 g/dL 019 8:03 PM [facility] Albumin 3.1(L) 3.4 - 5.0 g/dL 08/04/2018 8:03 PM [facility] Bilirubin Total 2.9(H) 0.2 - 1.2 mg/dL 07/10 8:03 PM [facility] Bilirubin Conjugated 1.5(H) 0.0 - 0.5 mg/dL 08/04/2018 8:03 PM [facility] Bilirubin Unconjugated 1.4 Unconjugated Bilirubin is a calculated value: Reference ranges have not been established. mg/dL 08/04/2018 8:03 PM [facility] Alkaline Phosphatase 119 40 - 150 Units/L 08/04/2018 8:03 PM [facility] ALT 47 0 - 55 Units/L 08/04/2018 8:03 PM [facility] AST 133(H) 5 - 34 Units/L 08/04/2018 8:03 PM [facility] Albumin/Globulin Ratio 1.1 1.1 - 2.3 08/04/2018 8:03 PM [facility] Blood BLOOD SPECIMEN / Unknown Lab Venipuncture / Unknown 08/04/2018 6:48 PM INSTRUCTIONAL SPECIALIST 08/04/2018 7:33 PM INSTRUCTIONAL SPECIALIST Katherin Teague MD LAB - CHEMISTRY BOY MOREL [address] [phone] * AMMONIA (08/04/2018 1:49 PM INSTRUCTIONAL SPECIALIST) Ammonia 49 11 - 64 umol/L 08/04/2018 2:02 PM INSTRUCTIONAL SPECIALIST [facility] Blood BLOOD SPECIMEN / Unknown Venipuncture / Unknown 08/04/2018 1:49 PM INSTRUCTIONAL SPECIALIST 08/04/2018 1:54 PM INSTRUCTIONAL SPECIALIST Rama Forrester MD LAB - CHEMISTRY BOY MOREL [address] [phone] * LACTIC ACID BLOOD (08/03/2018 3:24 PM INSTRUCTIONAL SPECIALIST) Lactic Acid-Stat 1.6 0.5 - 2.2 mmol/L 08/03/2018 3:54 PM INSTRUCTIONAL SPECIALIST [facility] Blood BLOOD SPECIMEN / Unknown Venipuncture / Unknown 08/03/2018 3:24 PM INSTRUCTIONAL SPECIALIST 08/03/2018 3:32 PM INSTRUCTIONAL SPECIALIST Schuyler Her MD LAB - CHEMISTRY BOY MOREL Performing Organization Address City/[facility]/ZIP Co de Phone Number [address] [phone] * IR TIPS PROCEDURE (08/03/2018 11:23 AM INSTRUCTIONAL SPECIALIST) Anatomical Region Laterality Modality X-Ray Angiograph y 08/03/2018 5:09 PM INSTRUCTIONAL SPECIALIST Impressions 08/06/2018 4:27 PM INSTRUCTIONAL SPECIALIST Impression: Successful creation of a transjugular intrahepatic portosystemic shunt (TIPS) with placement of a 8-10 mm x 8 cm (2 cm uncovered and 6 cm covered) cm Viatorr stent graft, as described above (dilated to 8 mm). The pre-shunt portosystemic gradient was 15 mmHg, and the post-shunt portosystemic gradient is 5 mmHg. Follow up recommendations: 1.Admit to MICU to observe for bleeding and encephalopathy. Appreciate assistance. Will follow while admitted. 2.CBC q8h to evaluate for bleeding. 3.Upon discharge, the patient will need a Liver Doppler in 1 month followed by an IR clinic visit after imaging is obtained. The patient will be contacted by IR nursing to schedule. 4.The patient should continue to follow-up with hepatology for management of cirrhosis/portal HTN. This report was approved by Inna Tarango on 08/03/2018 5:36 PM . I, Dr. LLOYD CERNA have personally reviewed and interpreted this examination/study. This report was electronically signed by LLOYD CERNA on 08/06/2018 4:27 PM . Narrative 08/06/2018 4:27 PM INSTRUCTIONAL SPECIALIST History: 47 y.o.femalewith a history of HCV and alcoholic cirrhosis with recurrent ascites requiring weekly large volume paracentesis. Patient referred for TIPS procedure. Patient was seen in IR clinic on 07/15/18 and discussed in IR plan of care meeting on 07/20/18 with consensus decision to perform TIPS procedure. The patient states that she is currently being evaluated for liver transplant. She denies encephalopathy. EGD over 1 year ago which showed varices, but she has not had any episodes of bleeding. Cardiac Echo in December 2017 which did not show any evidence of right heart failure. Patient has undergone pre-anesthesia testing. CT Triple-Phase Liver from 12/24/17 showed no hepatic masses. Operators: 1.Dr. Lloyd Cerna, Attending Physician 2.Dr. Emery Tarango, Fellow Physician Anesthesia: 1.Local anesthesia - 10 mL of 1% lidocaine 2.General anesthesia - per anesthesiology Procedure: 1.Limited abdominal ultrasound 2.Ultrasound-guided placement of a 6.5 Angolan pigtail catheter within the right lower quadrant and paracentesis 3.Ultrasound-guided access of the right internal jugular vein. 4.Pressure measurement in the right atrium. 5.Selective catheterization of the right hepatic vein and venogram. 6.Pressure measurement in the right hepatic vein. 7.Carbon dioxide wedged hepatic venogram. 8.Access of the right portal vein through the right hepatic vein using the Rosc-Uchida needle assembly under fluoroscopic guidance. 9.Selective catheterization of the main portal vein and venogram. 10.Pressure measurement in the main portal vein. 11.Creation of a transjugular intrahepatic portosystemic shunt (TIPS) with placement of a 8-10 mm x 8 cm Viatorr stent graft (6 cm covered and 2 cm uncovered) under fluoroscopic guidance. 12.Balloon dilatation of the TIPS with a 8 mm x 4 cm Conquest high pressure balloon. 13.Post-stent pressure measurements in the portal vein and right atrium. 14.Post-stent portal venogram Fluoroscopic time: 25.9 minutes Contrast: 75 mL of Isovue-300 Procedure in detail: The procedure, risks, and possible complications were explained to the patient, and informed consent was obtained. The patient was brought to the angiography suite and placed supine on the procedure table. The patient was given general anesthesia and monitored throughout the procedure by the anesthesiology team. Limited ultrasound of the abdomen revealed large volume ascites. The right lower quadrant was prepped and draped in sterile manner. A 6.5 Angolan resolve pigtail catheter was placed within the right lower quadrant ascites using local 1% lidocaine anesthesia ultrasound guidance and connected to a suction bottle and paracentesis performed during the procedure. 7250 mL of serous fluid was drained during the procedure. Drainage catheter was cut and removed after procedure completion and sterile dressing applied. The right lower neck was prepped and draped in the usual sterile manner. Limited ultrasound of the right internal jugular vein demonstrated patency and compressibility. A grayscale image was documented. A small skin incision was made in the right lower neck. Under realtime ultrasound guidance, the right internal jugular vein was accessed using a micropuncture needle. The needle entry was documented. After a series of exchanges, a 10-Angolan vascular sheath was placed. The sheath was advanced into the right atrium. Right atrial pressure was measured and found to be 15 mmHg. Using a 5-Angolan Kumpe catheter, the right hepatic vein was catheterized and a venogram was obtained, which demonstrated a normal hepatic vein pattern. Hepatic pressures were then measured. The wedged portal pressure was 39 mmHg. The free hepatic pressure measured 16 mmHg. Carbon dioxide wedged hepatic venogram was then performed, which delineated the right and left portal vein branches. Using a Rosc-Uchida needle assembly, the right portal vein was accessed with one attempt, and access to the portal vein secured with an exchange-length Glidewire Advantage. A Merit Sure-Cross catheter was advanced over a Glidewire Advantage into the main portal vein and SMV. Appropriate position within the portal vein was confirmed with hand-injection of contrast. The Glidewire advantage was then exchanged for an exchange length superstiff Cook Lunderquist wire. A marking flush catheter was then advanced over the Lunderquist wire into the main portal vein, and simultaneous portal / hepatic venogram was performed, which showed patent portal vein branches with confirmation of access to a right portal vein branch and demarcation of the hepatic vein / IVC junction. Direct portal pressure was measured to be 30 mmHg. Appropriate TIPS stent measurements were then obtained. The sheath was advanced over the wire into the portal vein. This was followed by deployment of a 8-10 mm x 8 cm Viatorr stent graft (2 cm uncovered and 6 cm covered) with the distal TIPS terminating just proximal to the HV/IVC junction (patient is being considered to liver/kidney transplant). The entire stent was then dilated with a 8 mm x 4 cm Conquest high pressure balloon under fluoroscopic guidance. Portal venogram following stent placement demonstrated a brisk shunt between the portal vein and right atrium. The pressures following shunt placement were: Following 8 mm Balloon Portal vein: 25 mmHg Right atrium: 20 mmHg Portosystemic gradient (portal-RA): 5 mmHg Wires, catheters, and jugular sheath were removed and hemostasis was achieved with manual compression. Sterile dressings were applied. The patient was extubated and transferred to post anesthesia care recovery in stable condition. There were no immediate complications associated with the procedure. Procedure Note Lloyd Cerna MD - 08/06/2018 History: 47 y.o.femalewith a history of HCV and alcoholic cirrhosis with recurrent ascites requiring weekly large volume paracentesis. Patient referred for TIPS procedure. Patient was seen in IR clinic on 07/15/18 and discussed in IR plan of care meeting on 07/20/18 with consensus decisionto perform TIPS procedure. The patient states that she is currently being evaluated for liver transplant. She denies encephalopathy. EGD over 1year ago which showed varices, but she has not had any episodes of bleeding. Cardiac Echo in December 2017 which did not show any evidence of right heart failure. Patient has undergone pre-anesthesia testing. CT Triple-Phase Liver from 12/24/17 showed no hepatic masses. Operators: 1.Dr. Lloyd Cerna, Attending Physician 2.Dr. Emery Tarango, Fellow Physician Anesthesia: 1.Local anesthesia - 10 mL of 1% lidocaine 2.General anesthesia - per anesthesiology Procedure: 1.Limited abdominal ultrasound 2.Ultrasound-guided placement of a 6.5 Angolan pigtail catheter withinthe right lower quadrant and paracentesis 3.Ultrasound-guided access of the right internal jugular vein. 4.Pressure measurement in the right atrium. 5.Selective catheterization of the right hepatic vein and venogram. 6.Pressure measurement in the right hepatic vein. 7.Carbon dioxide wedged hepatic venogram. 8.Access of the right portal vein through the right hepatic vein usingthe Rosch-Uchida needle assembly under fluoroscopic guidance. 9.Selective catheterization of the main portal vein and venogram. 10.Pressure measurement in the main portal vein. 11.Creation of a transjugular intrahepatic portosystemic shunt (TIPS)with placement of a 8-10 mm x 8 cm Viatorr stent graft (6 cm covered and 2 cm uncovered) under fluoroscopic guidance. 12.Balloon dilatation of the TIPS with a 8 mm x 4 cm Conquest high pressure balloon. 13.Post-stent pressure measurements in the portal vein and right atrium. 14.Post-stent portal venogram Fluoroscopic time: 25.9 minutes Contrast: 75 mL of Isovue-300 Procedure in detail: The procedure, risks, and possible complications were explained to the patient, and informed consent was obtained. The patient was brought tothe angiography suite and placed supine on the procedure table. The patient was given general anesthesia and monitored throughout the procedure bythe anesthesiology team. Limited ultrasound of the abdomen revealed large volume ascites. Theright lower quadrant was prepped and draped in sterile manner. A 6.5 Angolan resolve pigtail catheter was placed within the right lower quadrant ascites using local 1% lidocaine anesthesia ultrasound guidance and connected to a suction bottle and paracentesis performed during the procedure. 7250 mL of serous fluid was drained during the procedure. Drainage catheter was cut and removed after procedure completion and sterile dressing applied. The right lower neck was prepped and draped in the usual sterile manner. Limited ultrasound of the right internal jugular vein demonstratedpatency and compressibility. A grayscale image was documented. A small skin incision was made in the right lower neck. Under realtime ultrasound guidance, the right internal jugular vein was accessed using a micropuncture needle. The needle entry was documented. After a series of exchanges, a 10-Angolan vascular sheath was placed. The sheath was advanced into the right atrium. Right atrial pressure was measured and found to be 15 mmHg. Using a 5-Angolan Kumpe catheter, the right hepatic vein was catheterized and a venogram was obtained, which demonstrated a normal hepatic vein pattern. Hepatic pressures were then measured. The wedged portal pressure was 39 mmHg. The free hepatic pressure measured 16 mmHg. Carbon dioxide wedged hepatic venogram was then performed, which delineated the right and left portal vein branches. Using a Rosch-Uchida needle assembly, the right portal vein was accessed with one attempt, and access to the portal vein secured with an exchange-length Glidewire Advantage. A 4vets Sure-Cross catheter was advanced over a Glidewire Advantage into the main portal vein and SMV. Appropriate position within the portal vein was confirmed with hand-injection of contrast. The Glidewire advantage was then exchangedfor an exchange length superstiff [employer]Cam Technologieserquist wire. A marking flush catheter was then advanced over the Lunderquist wire into the mainportal vein, and simultaneous portal / hepatic venogram was performed, which showed patent portal vein branches with confirmation of access to aright portal vein branch and demarcation of the hepatic vein / IVC junction. Direct portal pressure was measured to be 30 mmHg. Appropriate TIPSstent measurements were then obtained. The sheath was advanced over the wire into the portal vein. This was followed by deployment of a 8-10 mm x 8 cm Viatorr stent graft (2 cm uncovered and 6 cm covered) with the distal TIPS terminating justproximal to the HV/IVC junction (patient is being considered to liver/kidney transplant). The entire stent was then dilated with a 8 mm x 4 cmConquest high pressure balloon under fluoroscopic guidance. Portal venogram following stent placement demonstrated a brisk shunt between the portal vein and right atrium. The pressures following shunt placement were: Following 8 mm Balloon Portal vein: 25 mmHg Right atrium: 20 mmHg Portosystemic gradient (portal-RA): 5 mmHg Wires, catheters, and jugular sheath were removed and hemostasis was achieved with manual compression. Sterile dressings were applied. The patient was extubated and transferred to post anesthesia care recoveryin stable condition. There were no immediate complications associated with the procedure. Impression: Successful creation of a transjugular intrahepatic portosystemic shunt (TIPS) with placement of a 8-10 mm x 8 cm (2 cm uncovered and 6 cm covered) cm Viatorr stent graft, as described above (dilated to 8 mm). The pre-shunt portosystemic gradient was 15 mmHg, and the post-shunt portosystemic gradient is 5 mmHg. Follow up recommendations: 1.Admit to MICU to observe for bleeding and encephalopathy. Appreciate assistance. Will follow while admitted. 2.CBC q8h to evaluate for bleeding. 3.Upon discharge, the patient will need a Liver Doppler in 1 month followed by an IR clinic visit after imaging is obtained. The patientwill be contacted by IR nursing to schedule. 4.The patient should continue to follow-up with hepatology formanagement of cirrhosis/portal HTN. This report was approved by Inna Tarango on 08/03/2018 5:36 PM . I, Dr. LLOYD CERNA have personally reviewed and interpreted this examination/study. This report was electronically signed by LLOYD CERNA on 08/06/2018 4:27 PM. Musa Salvador MD IR ORDERABLES * TYPE + SCREEN PANEL (08/03/2018 6:58 AM INSTRUCTIONAL SPECIALIST) Only the most recent of2 resultswithin the time period is included. Pathologist [facility] Antibody Screen NEG 9 8:00 AM [facility] BLOOD BANK LAB ABO Rh A POS 08/03/2018 8:00 AM [facility] BLOOD B[facility] LAB Blood Bank BLOOD SPECIMEN / Unknown Venipuncture / Unknown 08/03/2018 6:58 AM INSTRUCTIONAL SPECIALIST 08/03/2018 7:16 AM INSTRUCTIONAL SPECIALIST Musa Salvador MD LAB - BLOOD BANK ORD ERABLES [facility] [address] * BASIC METABOLIC PANEL (CALCIUM TOTAL) (08/03/2018 6:58 AM INSTRUCTIONAL SPECIALIST) Pathologist [facility] BUN 11 7 - 26 mg/dL 08/03/2018 7:45 AM [facility] LABORATORY [facility] Creatinine 0.6 0.6 - 1.2 mg/dL 08/03/2018 7:45 AM [facility] Sodium 137 136 - 145 mmol/L 08/03/2018 7:45 AM [facility] Potassium 3.5 3.5 - 4.5 mmol/L 08/03/2018 7:45 AM [facility] Chloride 105 98 - 107 mmol/L 08/03/2018 7:45 AM [facility] CO2 25 22 - 29 mmol/L 08/03/2018 7:45 AM [facility] Glucose 76 70 - 115 mg/dL 08/03/2018 7:45 AM [facility] Calcium 9.2 8.4 - 10.2 mg/dL 08/03/2018 7:45 AM [facility] Anion Gap 11 8 - 18 08/03/2018 7:45 AM [facility] BUN/Creatinine Ratio 18 7 - 23 08/03/2018 7:45 AM [facility] Osmolality Calculated 282 270 - 300 mOsm/kg 08/03/2018 7:45 AM [facility] eGFR >60 >60 mL/min/1.7 3 m2 08/03/2018 7:45 AM [facility] Blood BLOOD SPECIMEN / Unknown Venipuncture / Unknown 08/03/2018 6:58 AM INSTRUCTIONAL SPECIALIST 08/03/2018 7:04 AM [facility] Musa Salvador MD LAB - CHEMISTRY [facility]Y [facility]OR[facility] Organization Address City/State/ZIP Co de Phone Number [address] [phone] * LARGE VOLUME PARACENTESIS (07/22/2018 11:22 AM INSTRUCTIONAL SPECIALIST) Report Endoscopy POC Endoscopy Department Report __ _ Patient Name: Domenica Rivera Procedure Date: 07/22/2018 11:22 AM Date of : 1970 Classification: Outpatient Gender: Female __ _ Providers: Marla Soto PA-C, Israel Sparrow MD Referring MD: Procedure: Paracentesis (Repeat) Indications: Ascites, Ascites shown on ultrasound, Diagnostic to rule out peritonitis, Cirrhosis, Cirrhosis (Alcoholic), Portal hypertension, Renal disease Medications: 1% Lidocaine 10 mL SubQ Description of Procedure: After obtaining informed consent, the procedure was performed. Throughout the procedure, the patient's blood pressure, pulse, and oxygen saturations were monitored continuously. The paracentesis was accomplished without difficulty. The patient tolerated the procedure well. Findings: Prior to the procedure, the abdomen was examined and demonstrated moderate distention with ascites and a fluid wave to be present. With the patient in a supine with head elevated position, the procedure site was sterilely prepped using chloroprep and draped in the usual fashion. 10 mL of 1% lidocaine was infiltrated into the skin and subcutaneous tissues. Using a left lower quadrant approach, a small stab incision was made with a disposable blade and a 5 inch 12 gauge paracentesis needle and cannula system was inserted into the peritoneal cavity under ultrasound guidance. Aspiration demonstrated no blood and good return of peritoneal fluid. One pass was made. The trocar was then removed leaving the catheter in place. 6 liters of clear, yellow fluid was withdrawn using a vacuum bottle. Fluid was sent for cell count and differential and culture and sensitivities. The incision site was closed with exofin. Tegaderm were applied. 150 mL of 25% Albumin was administered during the course of the procedure to treat the patient for prophylactically for potential hypotension. Estimated Blood Loss: Estimated blood loss: none. Complications: No immediate complications. Impression: - Paracentesis successfully performed. - Test results pending. Recommendation: - Discharge patient to home (via cart). Attending Participation: I was present for the dolan portions of this procedure and either I or my colleague was immediately available for all non-dolan portions of the procedure. Procedure Code(s): --- Professional --- 35561, Abdominal paracentesis (diagnostic or therapeutic); with imaging guidance Diagnosis Code(s): --- Professional --- K70.31, Alcoholic cirrhosis of liver with ascites R18.8, Other ascites K74.60, Unspecified cirrhosis of liver K76.6, Portal hypertension N28.9, Disorder of kidney and ureter, unspecified CPT copyright 2016 [employer]. All rights reserved. The codes documented in this report are preliminary and upon aligner typewriter review may be revised to meet current compliance requirements. Marla Soto PA-C 07/22/2018 11:30:39 AM This report has been signed electronically. Israel Sparrow MD Note Initiated On: 07/22/2018 11:22 AM Number of Addenda: 0 [facility] [address] [place] [address] [facility] 07/22/2018 11:2 2 AM INSTRUCTIONAL SPECIALIST Marla Soto PA-C GI PROCEDURE OR DERABLES [facility] * LARGE VOLUME PARACENTESIS (07/15/2018 2:30 PM INSTRUCTIONAL SPECIALIST) Report Endoscopy POC Endoscopy Department Report __ _ Patient Name: Domenica Rivera Procedure Date: 07/15/2018 2:30 PM Date of : 1970 Classification: Outpatient Gender: Female __ _ Providers: Marla Soto PA-C, Jorge Alberto Ash MD Referring MD: Procedure: Paracentesis (Repeat) Indications: Ascites, Diagnostic to rule out peritonitis, Cirrhosis, Cirrhosis (Alcoholic), Portal hypertension, Renal disease Medications: 1% Lidocaine 10 mL SubQ Description of Procedure: After obtaining informed consent, the procedure was performed. Throughout the procedure, the patient's blood pressure, pulse, and oxygen saturations were monitored continuously. The paracentesis was accomplished without difficulty. The patient tolerated the procedure well. Findings: Prior to the procedure, the abdomen was examined and demonstrated significant distention with ascites and a fluid wave to be present. With the patient in a supine with head elevated position, the procedure site was sterilely prepped using chloroprep and draped in the usual fashion. 10 mL of 1% lidocaine was infiltrated into the skin and subcutaneous tissues. Using a left lower quadrant approach, a small stab incision was made with a disposable blade and a 5 inch 12 gauge paracentesis needle and cannula system was inserted into the peritoneal cavity under ultrasound guidance. Aspiration demonstrated no blood and good return of peritoneal fluid. One pass was made. The trocar was then removed leaving the catheter in place. 7.75 liters of clear, yellow fluid was withdrawn using a vacuum bottle. Fluid was sent for cell count and differential and culture and sensitivities. The incision site was closed with exofin. Tegaderm were applied. 200 mL of 25% Albumin was administered during the course of the procedure to treat the patient for prophylactically for potential hypotension. Estimated Blood Loss: Estimated blood loss: none. Complications: No immediate complications. Impression: - Paracentesis successfully performed. - Test results pending. Recommendation: - Discharge patient to home (ambulatory). - Return to liver clinic as previously scheduled. - Repeat paracentesis PRN for therapeutic purposes. Attending Participation: I was present for the dolan portions of this procedure and either I or my colleague was immediately available for all non-dolan portions of the procedure. Procedure Code(s): --- Professional --- 14684, Abdominal paracentesis (diagnostic or therapeutic); with imaging guidance Diagnosis Code(s): --- Professional --- K70.31, Alcoholic cirrhosis of liver with ascites K74.60, Unspecified cirrhosis of liver K76.6, Portal hypertension N28.9, Disorder of kidney and ureter, unspecified CPT copyright 2016 [employer]. All rights reserved. The codes documented in this report are preliminary and upon aligner typewriter review may be revised to meet current compliance requirements. Marla Soto PA-C 07/15/2018 2:35:02 PM This report has been signed electronically. Jorge Alberto Ash MD Note Initiated On: 07/15/2018 2:30 PM Number of Addenda: 0 [facility] [address] [place] [address] [facility] 07/15/2018 2:30 PM INSTRUCTIONAL SPECIALIST Marla Soto PA-C GI PROCEDURE OR DERABLES [facility] * LARGE VOLUME PARACENTESIS (07/08/2018 3:58 PM INSTRUCTIONAL SPECIALIST) Report Endoscopy POC Endoscopy Department Report __ _ Patient Name: Domenica Rivera Procedure Date: 07/08/2018 3:58 PM Date of : 1970 Classification: Outpatient Gender: Female __ _ Providers: Marla Soto PA-C, Katie Bobo, MD Referring MD: Procedure: Paracentesis (Repeat) Indications: Ascites, Ascites shown on ultrasound, Diagnostic to rule out peritonitis, Cirrhosis, Cirrhosis (Alcoholic), Portal hypertension, Renal disease Medications: 1% Lidocaine 10 mL SubQ Description of Procedure: After obtaining informed consent, the procedure was performed. Throughout the procedure, the patient's blood pressure, pulse, and oxygen saturations were monitored continuously. The paracentesis was accomplished without difficulty. The patient tolerated the procedure well. Findings: Prior to the procedure, the abdomen was examined and demonstrated significant distention with ascites and a fluid wave to be present. With the patient in a supine with head elevated position, the procedure site was sterilely prepped using chloroprep and draped in the usual fashion. 10 mL of 1% lidocaine was infiltrated into the skin and subcutaneous tissues. Using a left lower quadrant approach, a small stab incision was made with a disposable blade and a 5 inch 12 gauge paracentesis needle and cannula system was inserted into the peritoneal cavity under ultrasound guidance. Aspiration demonstrated no blood and good return of peritoneal fluid. One pass was made. The trocar was then removed leaving the catheter in place. 9 liters of clear, yellow fluid was withdrawn using a vacuum bottle. Fluid was sent for cell count and differential and culture and sensitivities. The incision site was closed with exofin. Tegaderm were applied. 250 mL of 25% Albumin was administered during the course of the procedure to treat the patient for underlying renal failure and for prophylactically for potential hypotension. Estimated Blood Loss: Estimated blood loss: none. Complications: No immediate complications. Impression: - Paracentesis successfully performed. - Test results pending. Recommendation: - Discharge patient to home (ambulatory). - Return to liver clinic as previously scheduled. - Repeat paracentesis PRN for therapeutic purposes. Attending Participation: I was present for the dolan portions of this procedure and either I or my colleague was immediately available for all non-dolan portions of the procedure. Procedure Code(s): --- Professional --- 11848, Abdominal paracentesis (diagnostic or therapeutic); with imaging guidance Diagnosis Code(s): --- Professional --- K70.31, Alcoholic cirrhosis of liver with ascites R18.8, Other ascites K74.60, Unspecified cirrhosis of liver K76.6, Portal hypertension N28.9, Disorder of kidney and ureter, unspecified CPT copyright 2016 [employer]. All rights reserved. The codes documented in this report are preliminary and upon aligner typewriter review may be revised to meet current compliance requirements. Marla Soto PA-C 07/08/2018 4:05:08 PM This report has been signed electronically. Catherine Bobo MD Note Initiated On: 07/08/2018 3:58 PM Number of Addenda: 0 [facility] [address] [place] [address] [facility] 07/08/2018 3:58 PM INSTRUCTIONAL SPECIALIST Marla Soto PA-C GI PROCEDURE OR DERABLES [facility] * LARGE VOLUME PARACENTESIS (07/01/2018 1:20 PM INSTRUCTIONAL SPECIALIST) Report Endoscopy POC Endoscopy Department Report __ _ Patient Name: Domenica Rivera Procedure Date: 07/01/2018 1:20 PM Date of : 1970 Classification: Outpatient Gender: Female __ _ Providers: Marla Soto PA-C, Jorge Alberto Ash MD Referring MD: Procedure: Paracentesis (Repeat) Indications: Ascites, Ascites shown on ultrasound, Diagnostic to rule out peritonitis, Cirrhosis, Cirrhosis (Alcoholic), Portal hypertension, Renal disease Medications: 1% Lidocaine 10 mL SubQ Description of Procedure: After obtaining informed consent, the procedure was performed. Throughout the procedure, the patient's blood pressure, pulse, and oxygen saturations were monitored continuously. The paracentesis was accomplished without difficulty. The patient tolerated the procedure well. Findings: Prior to the procedure, the abdomen was examined and demonstrated significant distention with ascites and a fluid wave to be present. With the patient in a supine with head elevated position, the procedure site was sterilely prepped using chloroprep and draped in the usual fashion. 10 mL of 1% lidocaine was infiltrated into the skin and subcutaneous tissues. Using a left lower quadrant approach, a small stab incision was made with a disposable blade and a 5 inch 12 gauge paracentesis needle and cannula system was inserted into the peritoneal cavity under ultrasound guidance. Aspiration demonstrated no blood and good return of peritoneal fluid. One pass was made. The trocar was then removed leaving the catheter in place. 9 liters of clear, yellow fluid was withdrawn using a vacuum bottle. Fluid was sent for cell count and differential and culture and sensitivities. Gauze and tegaderm were applied. 250 mL of 25% Albumin was administered during the course of the procedure to treat the patient for underlying renal failure and for prophylactically for potential hypotension. Estimated Blood Loss: Estimated blood loss: none. Complications: No immediate complications. Impression: - Paracentesis successfully performed. - Test results pending. Recommendation: - Discharge patient to home (ambulatory). - Return to liver clinic as previously scheduled. - Repeat paracentesis PRN for therapeutic purposes. Attending Participation: I was present for the dolan portions of this procedure and either I or my colleague was immediately available for all non-dolan portions of the procedure. Procedure Code(s): --- Professional --- 67939, Abdominal paracentesis (diagnostic or therapeutic); with imaging guidance Diagnosis Code(s): --- Professional --- K70.31, Alcoholic cirrhosis of liver with ascites R18.8, Other ascites K74.60, Unspecified cirrhosis of liver K76.6, Portal hypertension N28.9, Disorder of kidney and ureter, unspecified CPT copyright 2016 [employer]. All rights reserved. The codes documented in this report are preliminary and upon aligner typewriter review may be revised to meet current compliance requirements. Marla Soto PA-C 07/01/2018 1:23:12 PM This report has been signed electronically. Jorge Alberto Ash MD Note Initiated On: 07/01/2018 1:20 PM Number of Addenda: 0 [facility] [address] [place] [address] [facility] 07/01/2018 1:20 PM INSTRUCTIONAL SPECIALIST Marla Soto PA-C GI PROCEDURE OR DERABLES [facility] * LARGE VOLUME PARACENTESIS (06/24/2018 1:30 PM INSTRUCTIONAL SPECIALIST) Report Endoscopy POC Endoscopy Department Report __ _ Patient Name: Domenica Rivera Procedure Date: 06/24/2018 1:30 PM Date of : 1970 Classification: Outpatient Gender: Female __ _ Providers: Marla Soto PA-C, Israel Sparrow MD Referring MD: Procedure: Paracentesis (Repeat) Indications: Ascites, Ascites shown on ultrasound, Diagnostic to rule out peritonitis, Cirrhosis, Cirrhosis (Alcoholic), Portal hypertension, Renal disease Medications: 1% Lidocaine 10 mL SubQ Description of Procedure: After obtaining informed consent, the procedure was performed. Throughout the procedure, the patient's blood pressure, pulse, and oxygen saturations were monitored continuously. The paracentesis was accomplished without difficulty. The patient tolerated the procedure well. Findings: Prior to the procedure, the abdomen was examined and demonstrated significant distention with ascites and a fluid wave to be present. With the patient in a supine with head elevated position, the procedure site was sterilely prepped using chloroprep and draped in the usual fashion. 10 mL of 1% lidocaine was infiltrated into the skin and subcutaneous tissues. Using a left lower quadrant approach, a small stab incision was made with a disposable blade and a 5 inch 12 gauge paracentesis needle and cannula system was inserted into the peritoneal cavity under ultrasound guidance. Aspiration demonstrated no blood and good return of peritoneal fluid. One pass was made. The trocar was then removed leaving the catheter in place. 8.5 liters of clear, yellow fluid was withdrawn using a vacuum bottle. Fluid was sent for cell count and differential and culture and sensitivities. The incision site was closed with exofin. Tegaderm were applied. 250 mL of 25% Albumin was administered during the course of the procedure to treat the patient for prophylactically for potential hypotension. Estimated Blood Loss: Estimated blood loss: none. Complications: No immediate complications. Impression: - Paracentesis successfully performed. - Test results pending. Recommendation: - Discharge patient to home (ambulatory). - Return to liver clinic as previously scheduled. - Repeat paracentesis PRN for therapeutic purposes. Attending Participation: I was present for the dolan portions of this procedure and either I or my colleague was immediately available for all non-dolan portions of the procedure. Procedure Code(s): --- Professional --- 37969, Abdominal paracentesis (diagnostic or therapeutic); with imaging guidance Diagnosis Code(s): --- Professional --- K70.31, Alcoholic cirrhosis of liver with ascites R18.8, Other ascites K74.60, Unspecified cirrhosis of liver K76.6, Portal hypertension N28.9, Disorder of kidney and ureter, unspecified CPT copyright 2016 [employer]. All rights reserved. The codes documented in this report are preliminary and upon aligner typewriter review may be revised to meet current compliance requirements. Marla Soto PA-C 06/24/2018 1:34:42 PM This report has been signed electronically. Israel Sparrow MD Note Initiated On: 06/24/2018 1:30 PM Number of Addenda: 0 [facility] [address] [place] [address] [facility] 06/24/2018 1:30 PM INSTRUCTIONAL SPECIALIST Marla Soto PA-C GI PROCEDURE OR DERABLES [facility] * LARGE VOLUME PARACENTESIS (06/14/2018 2:37 PM INSTRUCTIONAL SPECIALIST) Report Endoscopy POC Endoscopy Department Report _ Patient Name: Domenica Rivera Procedure Date: 06/14/2018 2:37 PM Date of : 1970 Classification: Outpatient Gender: Female _ Providers: Marla Soto PA-C, Kellee Lind MD: Procedure: Paracentesis (Repeat) Indications: Ascites, Ascites shown on ultrasound, Diagnostic to rule out peritonitis, Cirrhosis, Cirrhosis (Alcoholic), Portal hypertension, Renal disease Medications: 1% Lidocaine 10 mL SubQ Description of Procedure: After obtaining informed consent, the procedure was performed. Throughout the procedure, the patient's blood pressure, pulse, and oxygen saturations were monitored continuously. The paracentesis was accomplished without difficulty. The patient tolerated the procedure well. Findings: Prior to the procedure, the abdomen was examined and demonstrated significant distention with ascites and a fluid wave to be present. With the patient in a supine with head elevated position, the procedure site was sterilely prepped using chloroprep and draped in the usual fashion. 10 mL of 1% lidocaine was infiltrated into the skin and subcutaneous tissues. Using a left lower quadrant approach, a small stab incision was made with a disposable blade and a 5 inch 12 gauge paracentesis needle and cannula system was inserted into the peritoneal cavity under ultrasound guidance. Aspiration demonstrated no blood and good return of peritoneal fluid. One pass was made. The trocar was then removed leaving the catheter in place. 7.5 liters of clear, yellow fluid was withdrawn using a vacuum bottle. Fluid was sent for cell count and differential and culture and sensitivities. The incision site was closed with exofin. Tegaderm were applied. Estimated Blood Loss: Estimated blood loss: none. Complications: No immediate complications. Impression: - Paracentesis successfully performed. - Test results pending. Recommendation: - Discharge patient to home (ambulatory). - Return to liver clinic as previously scheduled. - Repeat paracentesis PRN for therapeutic purposes. Attending Participation: I was present for the dolan portions of this procedure and either I or my colleague was immediately available for all non-dolan portions of the procedure. Procedure Code(s): --- Professional --- 96760, Abdominal paracentesis (diagnostic or therapeutic); with imaging guidance Diagnosis Code(s): --- Professional --- K70.31, Alcoholic cirrhosis of liver with ascites R18.8, Other ascites K74.60, Unspecified cirrhosis of liver K76.6, Portal hypertension N28.9, Disorder of kidney and ureter, unspecified CPT copyright 2016 [employer]. All rights reserved. The codes documented in this report are preliminary and upon aligner typewriter review may be revised to meet current compliance requirements. Marla Soto PA-C 06/14/2018 2:42:45 PM This report has been signed electronically. Bandar Schroeder Initiated On: 06/14/2018 2:37 PM Number of Addenda: 0 [facility] [address] [address] [facility] 06/14/2018 2:37 PM INSTRUCTIONAL SPECIALIST Marla Soto PA-C GI PROCEDURE OR DERABLES [facility] * LARGE VOLUME PARACENTESIS (06/09/2018 9:05 AM INSTRUCTIONAL SPECIALIST) Report Endoscopy POC Endoscopy Department Report __ _ Patient Name: Domenica Rivera Procedure Date: 06/09/2018 9:05 AM Date of : 1970 Classification: Outpatient Gender: Female __ _ Providers: Jory Bradley NP, Aleida Conn MD Referring MD: Procedure: Paracentesis (Repeat) Indications: Ascites, Ascites shown on ultrasound, Cirrhosis, Portal hypertension Medications: 1% Lidocaine 15 mL SubQ Description of Procedure: After obtaining informed consent, the procedure was performed. Throughout the procedure, the patient's blood pressure, pulse, and oxygen saturations were monitored continuously. The paracentesis was accomplished without difficulty. The patient tolerated the procedure well. Findings: With the patient in a supine with head elevated position, the procedure site was sterilely prepped using chloroprep and draped in the usual fashion. 15 mL of 1% lidocaine with epinephrine was infiltrated into the skin and subcutaneous tissues. Using a left lower quadrant approach, a small stab incision was made with a disposable blade and a 5 inch 16 gauge paracentesis needle and cannula system was inserted into the peritoneal cavity under ultrasound guidance. Aspiration demonstrated no blood and good return of peritoneal fluid. One pass was made. The trocar was then removed leaving the catheter in place. 8.75 liters of clear, blood-tinged fluid was withdrawn using a vacuum bottle. Fluid was sent for cell count and differential and culture and sensitivities. 200 mL of 25% Albumin was administered during the course of the procedure to treat the patient for prophylactically for potential hypotension. Estimated Blood Loss: Estimated blood loss was minimal. Complications: No immediate complications. Impression: - Paracentesis successfully performed. Recommendation: - Discharge patient to home (ambulatory). - Low sodium diet for the rest of the patient's life. - Return to GI clinic as previously scheduled. Attending Participation: I was present for the dolan portions of this procedure and either I or my colleague was immediately available for all non-dolan portions of the procedure. Procedure Code(s): --- Professional --- 66658, Abdominal paracentesis (diagnostic or therapeutic); with imaging guidance Diagnosis Code(s): --- Professional --- R18.8, Other ascites K74.60, Unspecified cirrhosis of liver K76.6, Portal hypertension CPT copyright 2016 [employer]. All rights reserved. The codes documented in this report are preliminary and upon aligner typewriter review may be revised to meet current compliance requirements. Jory Bradley APN ____ Jory Bradley NP 06/09/2018 9:25:08 AM This report has been signed electronically. ____ Aleida Conn MD Note Initiated On: 06/09/2018 9:05 AM Number of Addenda: 0 [facility] [address] [address] [facility] 06/09/2018 9:05 AM INSTRUCTIONAL SPECIALIST Jory Bradley INSTRUCTIONAL SUPERVISOR-DB2 DEVELOPER GI PROCEDURE ORDERABLES [facility] * LARGE VOLUME PARACENTESIS (06/02/2018 1:42 PM INSTRUCTIONAL SPECIALIST) Report Endoscopy POC Endoscopy Department Report _ Patient Name: Domenica Rivera Procedure Date: 06/02/2018 1:42 PM Date of : 1970 Classification: Outpatient Gender: Female _ Providers: Eileen Iniguez MD, Prasanna Kiran (Fellow), Papo Delarosa (Fellow) Referring MD: Procedure: Paracentesis (Repeat) Indications: Ascites Medications: 1% Lidocaine 15 mL SubQ Description of Procedure: After obtaining informed consent, the procedure was performed. Throughout the procedure, the patient's blood pressure, pulse, and oxygen saturations were monitored continuously. Findings: With the patient in a supine with head elevated 45 degrees position, the procedure site was sterilely prepped using Hibiclens and draped in the usual fashion. 15 mL of 1% lidocaine was infiltrated into the skin and subcutaneous tissues. Using a left lower quadrant approach, a small stab incision was made with a disposable blade and a 5 inch 12 gauge paracentesis needle and cannula system was inserted into the peritoneal cavity under ultrasound guidance. Aspiration demonstrated good return of peritoneal fluid. Four passes were made. 9 liters of yellow fluid was withdrawn using a vacuum bottle. Estimated Blood Loss: Estimated blood loss was minimal. Complications: No immediate complications. Impression: - Paracentesis successfully performed. Recommendation: - Patient has a contact number available for emergencies. The signs and symptoms of potential delayed complications were discussed with the patient. Return to normal activities tomorrow. Written discharge instructions were provided to the patient. - Discharge patient to home. - Resume previous diet. Attending Participation: I was present for the dolan portions of this procedure and either I or my colleague was immediately available for all non-dolan portions of the procedure. Procedure Code(s): --- Professional --- 10929, Abdominal paracentesis (diagnostic or therapeutic); with imaging guidance Diagnosis Code(s): --- Professional --- R18.8, Other ascites CPT copyright 2016 [employer]. All rights reserved. The codes documented in this report are preliminary and upon aligner typewriter review may be revised to meet current compliance requirements. Eileen Iniguez MD 06/09/2018 11:05:38 AM Note Initiated On: 06/02/2018 1:42 PM Number of Addenda: 0 [facility] [address] [facility] [place] [address] [facility] 06/02/2018 1:42 PM INSTRUCTIONAL SPECIALIST Prasanna Kiran MD GI PROCEDURE ORDERA BLES [facility] * LARGE VOLUME PARACENTESIS (05/24/2018 2:10 PM INSTRUCTIONAL SPECIALIST) Report Endoscopy POC Endoscopy Department Report __ _ Patient Name: Domenica Rivera Procedure Date: 05/24/2018 2:10 PM Date of : 1970 Classification: Outpatient Gender: Female __ _ Providers: Marla Soto PA-C, Jorge Alberto Ash MD Referring MD: Procedure: Paracentesis (Repeat) Indications: Ascites, Ascites shown on ultrasound, Diagnostic to rule out peritonitis, Cirrhosis, Cirrhosis (Alcoholic), Portal hypertension, Renal disease Medications: 1% Lidocaine 10 mL SubQ Description of Procedure: After obtaining informed consent, the procedure was performed. Throughout the procedure, the patient's blood pressure, pulse, and oxygen saturations were monitored continuously. The paracentesis was accomplished without difficulty. The patient tolerated the procedure well. Findings: Prior to the procedure, the abdomen was examined and demonstrated significant distention with ascites and a fluid wave to be present. With the patient in a supine with head elevated position, the procedure site was sterilely prepped using chloroprep and draped in the usual fashion. 10 mL of 1% lidocaine was infiltrated into the skin and subcutaneous tissues. Using a left lower quadrant approach, a small stab incision was made with a disposable blade and a 5 inch 12 gauge paracentesis needle and cannula system was inserted into the peritoneal cavity under ultrasound guidance. Aspiration demonstrated no blood and good return of peritoneal fluid. One pass was made. The trocar was then removed leaving the catheter in place. 9 liters of clear, yellow fluid was withdrawn using a vacuum bottle. Fluid was sent for cell count and differential and culture and sensitivities. The incision site was closed with exofin. Tegaderm were applied. 250 mL of 25% Albumin was administered during the course of the procedure to treat the patient for prophylactically for potential hypotension. Estimated Blood Loss: Estimated blood loss: none. Complications: No immediate complications. Impression: - Paracentesis successfully performed. - Test results pending. Recommendation: - Discharge patient to home (ambulatory). - Return to liver clinic as previously scheduled. - Repeat paracentesis PRN for therapeutic purposes. Attending Participation: I was present for the dolan portions of this procedure and either I or my colleague was immediately available for all non-dolan portions of the procedure. Procedure Code(s): --- Professional --- 95331, Abdominal paracentesis (diagnostic or therapeutic); with imaging guidance Diagnosis Code(s): --- Professional --- K70.31, Alcoholic cirrhosis of liver with ascites R18.8, Other ascites K74.60, Unspecified cirrhosis of liver K76.6, Portal hypertension N28.9, Disorder of kidney and ureter, unspecified CPT copyright 2016 [employer]. All rights reserved. The codes documented in this report are preliminary and upon aligner typewriter review may be revised to meet current compliance requirements. Marla Soto PA-C 05/24/2018 2:14:23 PM This report has been signed electronically. Jorge Alberto Ash MD Note Initiated On: 05/24/2018 2:10 PM Number of Addenda: 0 [facility] [address] [facility] [place] [address] [facility] 05/24/2018 2:10 PM INSTRUCTIONAL SPECIALIST Marla Soto PA-C GI PROCEDURE OR DERABLES [facility] * LARGE VOLUME PARACENTESIS (05/17/2018 10:33 AM INSTRUCTIONAL SPECIALIST) Report Endoscopy POC Endoscopy Department Report __ _ Patient Name: Domenica Rivera Procedure Date: 05/17/2018 10:33 AM Date of : 1970 Classification: Outpatient Gender: Female __ _ Providers: Marla Soto PA-C, Jorge Alberto Ash MD Referring MD: Procedure: Paracentesis (Repeat) Indications: Ascites, Ascites shown on ultrasound, Diagnostic to rule out peritonitis, Cirrhosis, Cirrhosis (Alcoholic), Portal hypertension, Renal disease Medications: 1% Lidocaine 10 mL SubQ Description of Procedure: After obtaining informed consent, the procedure was performed. Throughout the procedure, the patient's blood pressure, pulse, and oxygen saturations were monitored continuously. The paracentesis was accomplished without difficulty. The patient tolerated the procedure well. Findings: Prior to the procedure, the abdomen was examined and demonstrated significant distention with ascites and a fluid wave to be present. With the patient in a supine with head elevated position, the procedure site was sterilely prepped using chloroprep and draped in the usual fashion. 10 mL of 1% lidocaine was infiltrated into the skin and subcutaneous tissues. Using a left lower quadrant approach, a small stab incision was made with a disposable blade and a 5 inch 12 gauge paracentesis needle and cannula system was inserted into the peritoneal cavity under ultrasound guidance. Aspiration demonstrated no blood and good return of peritoneal fluid. One pass was made. The trocar was then removed leaving the catheter in place. 8.7 liters of clear, yellow fluid was withdrawn using a vacuum bottle. Fluid was sent for cell count and differential and culture and sensitivities. The incision site was closed with exofin. Tegaderm were applied. 250 mL of 25% Albumin was administered during the course of the procedure to treat the patient for prophylactically for potential hypotension. Estimated Blood Loss: Estimated blood loss: none. Complications: No immediate complications. Impression: - Paracentesis successfully performed. - Test results pending. Recommendation: - Discharge patient to home (ambulatory). - Return to liver clinic as previously scheduled. - Repeat paracentesis PRN for therapeutic purposes. Attending Participation: I was present for the dolan portions of this procedure and either I or my colleague was immediately available for all non-dolan portions of the procedure. Procedure Code(s): --- Professional --- 74509, Abdominal paracentesis (diagnostic or therapeutic); with imaging guidance Diagnosis Code(s): --- Professional --- K70.31, Alcoholic cirrhosis of liver with ascites R18.8, Other ascites K74.60, Unspecified cirrhosis of liver K76.6, Portal hypertension N28.9, Disorder of kidney and ureter, unspecified CPT copyright 2016 [employer]. All rights reserved. The codes documented in this report are preliminary and upon aligner typewriter review may be revised to meet current compliance requirements. Marla Soto PA-C 05/17/2018 10:35:37 AM This report has been signed electronically. Jorge Alberto Ash MD Note Initiated On: 05/17/2018 10:33 AM Number of Addenda: 0 [facility] [address] [place] [address] [facility] 05/17/2018 10:3 3 AM INSTRUCTIONAL SPECIALIST Marla Soto PA-C GI PROCEDURE OR DERABLES [facility] * LARGE VOLUME PARACENTESIS (05/10/2018 3:13 PM INSTRUCTIONAL SPECIALIST) Report Endoscopy POC Endoscopy Department Report _ Patient Name: Domenica Rivera Procedure Date: 05/10/2018 3:13 PM Date of : 1970 Classification: Outpatient Gender: Female _ Providers: Marla Soto PA-C, Alise Palomino MD Referring MD: Procedure: Paracentesis (Repeat) Indications: Ascites, Ascites shown on ultrasound, Diagnostic to rule out peritonitis, Cirrhosis, Cirrhosis (Alcoholic), Portal hypertension, Renal disease Medications: 1% Lidocaine 10 mL SubQ Description of Procedure: After obtaining informed consent, the procedure was performed. Throughout the procedure, the patient's blood pressure, pulse, and oxygen saturations were monitored continuously. The paracentesis was accomplished without difficulty. The patient tolerated the procedure well. Findings: Prior to the procedure, the abdomen was examined and demonstrated significant distention with ascites and a fluid wave to be present. With the patient in a supine with head elevated position, the procedure site was sterilely prepped using chloroprep and draped in the usual fashion. 10 mL of 1% lidocaine was infiltrated into the skin and subcutaneous tissues. Using a left lower quadrant approach, a small stab incision was made with a disposable blade and a 5 inch 12 gauge paracentesis needle and cannula system was inserted into the peritoneal cavity under ultrasound guidance. Aspiration demonstrated no blood and good return of peritoneal fluid. One pass was made. The trocar was then removed leaving the catheter in place. 10 liters of clear, yellow fluid was withdrawn using a vacuum bottle. Fluid was sent for cell count and differential and culture and sensitivities. The incision site was closed with exofin. Tegaderm were applied. 300 mL of 25% Albumin was administered during the course of the procedure to treat the patient for underlying renal failure. Estimated Blood Loss: Estimated blood loss: none. Complications: No immediate complications. Impression: - Paracentesis successfully performed. - Test results pending. Recommendation: - Discharge patient to home (ambulatory). - Return to liver clinic as previously scheduled. - Repeat paracentesis PRN for therapeutic purposes. Attending Participation: I was present for the dolan portions of this procedure and either I or my colleague was immediately available for all non-dolan portions of the procedure. Procedure Code(s): --- Professional --- 10811, Abdominal paracentesis (diagnostic or therapeutic); with imaging guidance Diagnosis Code(s): --- Professional --- K70.31, Alcoholic cirrhosis of liver with ascites R18.8, Other ascites K74.60, Unspecified cirrhosis of liver K76.6, Portal hypertension N28.9, Disorder of kidney and ureter, unspecified CPT copyright 2016 [employer]. All rights reserved. The codes documented in this report are preliminary and upon aligner typewriter review may be revised to meet current compliance requirements. Marla Soto PA-C 05/10/2018 3:23:29 PM This report has been signed electronically. _ Alise Palomino MD Note Initiated On: 05/10/2018 3:13 PM Number of Addenda: 0 [facility] [address] [place] [address] [facility] 05/10/2018 3:13 PM INSTRUCTIONAL SPECIALIST Marla Soto PA-C GI PROCEDURE OR DERABLES [facility] * LARGE VOLUME PARACENTESIS (05/03/2018 2:26 PM INSTRUCTIONAL SPECIALIST) Report Endoscopy POC Endoscopy Department Report __ _ Patient Name: Domenica Rivera Procedure Date: 05/03/2018 2:26 PM Date of : 1970 Classification: Outpatient Gender: Female __ _ Providers: Marla Soto PA-C, Jorge Alberto Ash MD Referring MD: Procedure: Paracentesis (Repeat) Indications: Ascites, Ascites shown on ultrasound, Diagnostic to rule out peritonitis, Cirrhosis, Cirrhosis (Alcoholic), Portal hypertension, Renal disease Medications: 1% Lidocaine 15 mL SubQ Description of Procedure: After obtaining informed consent, the procedure was performed. Throughout the procedure, the patient's blood pressure, pulse, and oxygen saturations were monitored continuously. The paracentesis was accomplished without difficulty. The patient tolerated the procedure well. Findings: Prior to the procedure, the abdomen was examined and demonstrated moderate distention with ascites and a fluid wave to be present. With the patient in a supine with head elevated position, the procedure site was sterilely prepped using chloroprep and draped in the usual fashion. 10 mL of 1% lidocaine was infiltrated into the skin and subcutaneous tissues. Using a left lower quadrant approach, a small stab incision was made with a disposable blade and a 5 inch 12 gauge paracentesis needle and cannula system was inserted into the peritoneal cavity under ultrasound guidance. Aspiration demonstrated no blood and good return of peritoneal fluid. One pass was made. The trocar was then removed leaving the catheter in place. 6 liters of clear, yellow fluid was withdrawn using a vacuum bottle. Fluid was sent for cell count and differential and culture and sensitivities. The incision site was closed with exofin. Tegaderm were applied. 150 mL of 25% Albumin was administered during the course of the procedure to treat the patient for underlying renal failure and for prophylactically for potential hypotension. Estimated Blood Loss: Estimated blood loss: none. Complications: No immediate complications. Impression: - Paracentesis successfully performed. - Test results pending. Recommendation: - Discharge patient to home (ambulatory). - Return to liver clinic as previously scheduled. - Repeat paracentesis PRN for therapeutic purposes. Attending Participation: I was present for the dolan portions of this procedure and either I or my colleague was immediately available for all non-dolan portions of the procedure. Procedure Code(s): --- Professional --- 62478, Abdominal paracentesis (diagnostic or therapeutic); with imaging guidance Diagnosis Code(s): --- Professional --- K70.31, Alcoholic cirrhosis of liver with ascites R18.8, Other ascites K74.60, Unspecified cirrhosis of liver K76.6, Portal hypertension N28.9, Disorder of kidney and ureter, unspecified CPT copyright 2016 [employer]. All rights reserved. The codes documented in this report are preliminary and upon aligner typewriter review may be revised to meet current compliance requirements. Marla Soto PA-C 05/03/2018 2:36:13 PM This report has been signed electronically. Jorge Alberto Ash MD Note Initiated On: 05/03/2018 2:26 PM Number of Addenda: 0 [facility] [address] [place] [address] [facility] 05/03/2018 2:26 PM INSTRUCTIONAL SPECIALIST Marla Soto PA-C GI PROCEDURE OR DERABLES [facility] * LARGE VOLUME PARACENTESIS (04/26/2018 12:46 PM INSTRUCTIONAL SPECIALIST) Report Endoscopy POC Endoscopy Department Report _ Patient Name: Domenica Rivera Procedure Date: 04/26/2018 12:46 PM Date of : 1970 Classification: Outpatient Gender: Female _ Providers: Marla Soto PA-C, Aretha Watson MD Referring MD: Procedure: Paracentesis (Repeat) Indications: Ascites, Ascites shown on ultrasound, Diagnostic to rule out peritonitis, Cirrhosis, Cirrhosis (Alcoholic), Portal hypertension, Renal disease Medications: 1% Lidocaine 10 mL SubQ Description of Procedure: After obtaining informed consent, the procedure was performed. Throughout the procedure, the patient's blood pressure, pulse, and oxygen saturations were monitored continuously. The paracentesis was accomplished without difficulty. The patient tolerated the procedure well. Findings: Prior to the procedure, the abdomen was examined and demonstrated significant distention with ascites and a fluid wave to be present. With the patient in a supine with head elevated position, the procedure site was sterilely prepped using chloroprep and draped in the usual fashion. 10 mL of 1% lidocaine was infiltrated into the skin and subcutaneous tissues. Using a left lower quadrant approach, a small stab incision was made with a disposable blade and a 5 inch 12 gauge paracentesis needle and cannula system was inserted into the peritoneal cavity under ultrasound guidance. Aspiration demonstrated no blood and good return of peritoneal fluid. One pass was made. The trocar was then removed leaving the catheter in place. 8.5 liters of clear, yellow fluid was withdrawn using a vacuum bottle. Fluid was sent for cell count and differential and culture and sensitivities. The incision site was closed with exofin. Tegaderm were applied. 300 mL of 25% Albumin was administered during the course of the procedure to treat the patient for underlying renal failure. Estimated Blood Loss: Estimated blood loss: none. Complications: No immediate complications. Impression: - Paracentesis successfully performed. - Test results pending. Recommendation: - Discharge patient to home (ambulatory). - Return to liver clinic as previously scheduled. - Repeat paracentesis PRN for therapeutic purposes. Attending Participation: I was present for the dolan portions of this procedure and either I or my colleague was immediately available for all non-dolan portions of the procedure. Procedure Code(s): --- Professional --- 70679, Abdominal paracentesis (diagnostic or therapeutic); with imaging guidance Diagnosis Code(s): --- Professional --- K70.31, Alcoholic cirrhosis of liver with ascites R18.8, Other ascites K74.60, Unspecified cirrhosis of liver K76.6, Portal hypertension N28.9, Disorder of kidney and ureter, unspecified CPT copyright 2016 [employer]. All rights reserved. The codes documented in this report are preliminary and upon aligner typewriter review may be revised to meet current compliance requirements. Marla Soto PA-C 04/26/2018 12:51:24 PM This report has been signed electronically. Aretha Watson MD Note Initiated On: 04/26/2018 12:46 PM Number of Addenda: 0 [facility] [address] [facility] [place] [address] [facility] 04/26/2018 12:4 6 PM INSTRUCTIONAL SPECIALIST Marla Soto PA-C GI PROCEDURE OR DERABLES [facility] * LARGE VOLUME PARACENTESIS (04/19/2018 10:45 AM INSTRUCTIONAL SPECIALIST) Report Endoscopy POC Endoscopy Department Report _ Patient Name: Domenica Rivera Procedure Date: 04/19/2018 10:45 AM Date of : 1970 Classification: Outpatient Gender: Female _ Providers: Aretha Watson MD, Blaze Garcia (Fellow) Referring MD: Procedure: Paracentesis (Repeat) Indications: Ascites Medications: 1% Lidocaine 10 mL SubQ Description of Procedure: After obtaining informed consent, the procedure was performed. Throughout the procedure, the patient's blood pressure, pulse, and oxygen saturations were monitored continuously.The paracentesis was accomplished without difficulty. The patient tolerated the procedure well. Findings: Prior to the procedure, the abdomen was examined and demonstrated moderate distention with ascites. With the patient in a supine with head elevated 45 degrees position, the procedure site was sterilely prepped using DuraPrep and draped in the usual fashion. 10 mL of 1% lidocaine with epinephrine was infiltrated into the skin and subcutaneous tissues. Using a left periumbilical approach, a small stab incision was made with a disposable blade and an 8 Angolan paracentesis needle and cannula system was inserted into the peritoneal cavity under ultrasound guidance. Aspiration demonstrated good return of peritoneal fluid. One pass was made. The trocar was then removed leaving the catheter in place. 3.75 liters of straw-colored fluid was withdrawn using a high volume pump. A Band-Aid was applied. 37.5 grams of 25% albumin was given to patient post procedure. Estimated Blood Loss: Estimated blood loss was minimal. Complications: No immediate complications. Impression: - Paracentesis successfully performed. - Test results pending. Recommendation: - Patient has a contact number available for emergencies. The signs and symptoms of potential delayed complications were discussed with the patient. Return to normal activities tomorrow. Written discharge instructions were provided to the patient. - Discharge patient to home (ambulatory). - Resume previous diet. - Return to GI clinic as previously scheduled. Attending Participation: I was present and participated during the entire procedure, including non-dolan portions. Procedure Code(s): --- Professional --- 99033, Abdominal paracentesis (diagnostic or therapeutic); with imaging guidance Diagnosis Code(s): --- Professional --- R18.8, Other ascites CPT copyright 2016 [employer]. All rights reserved. The codes documented in this report are preliminary and upon aligner typewriter review may be revised to meet current compliance requirements. Aretha Watson MD 04/20/2018 8:37:03 AM Note Initiated On: 04/19/2018 10:45 AM Number of Addenda: 0 [facility] [address] [place] [address] [facility] 04/19/2018 10:4 5 AM INSTRUCTIONAL SPECIALIST Blaze Garcia MD GI PROCEDURE ORDERAB LES [facility] * LARGE VOLUME PARACENTESIS (04/12/2018 1:58 PM INSTRUCTIONAL SPECIALIST) Report Endoscopy POC Endoscopy Department Report __ _ Patient Name: Domenica Rivera Procedure Date: 04/12/2018 1:58 PM Date of : 1970 Classification: Outpatient Gender: Female __ _ Providers: Marla Soto PA-C, Jorge Alberto Ahs MD Referring MD: Procedure: Paracentesis (Repeat) Indications: Ascites shown on ultrasound, Diagnostic to rule out peritonitis, Cirrhosis, Cirrhosis (Alcoholic), Portal hypertension, Renal disease Medications: 1% Lidocaine 15 mL SubQ Description of Procedure: After obtaining informed consent, the procedure was performed. Throughout the procedure, the patient's blood pressure, pulse, and oxygen saturations were monitored continuously. The paracentesis was accomplished without difficulty. The patient tolerated the procedure well. Findings: Prior to the procedure, the abdomen was examined and demonstrated moderate distention with ascites and a fluid wave to be present. With the patient in a supine with head elevated position, the procedure site was sterilely prepped using chloroprep and draped in the usual fashion. 15 mL of 1% lidocaine was infiltrated into the skin and subcutaneous tissues. Using a left lower quadrant approach, a small stab incision was made with a disposable blade and a 5 inch 12 gauge paracentesis needle and cannula system was inserted into the peritoneal cavity under ultrasound guidance. Aspiration demonstrated no blood and good return of peritoneal fluid. One pass was made. The trocar was then removed leaving the catheter in place. 8.2 liters of clear, yellow fluid was withdrawn using a vacuum bottle. Fluid was sent for cell count and differential and culture and sensitivities. Gauze and a Band-Aid were applied. 250 mL of 25% Albumin was administered during the course of the procedure to treat the patient for prophylactically for potential hypotension. Estimated Blood Loss: Estimated blood loss: none. Complications: No immediate complications. Impression: - Paracentesis successfully performed. - Test results pending. Recommendation: - Discharge patient to home (ambulatory). - Return to liver clinic as previously scheduled. - Repeat paracentesis PRN for therapeutic purposes. Attending Participation: I was present for the dolan portions of this procedure and either I or my colleague was immediately available for all non-dolan portions of the procedure. Procedure Code(s): --- Professional --- 20084, Abdominal paracentesis (diagnostic or therapeutic); with imaging guidance Diagnosis Code(s): --- Professional --- K70.30, Alcoholic cirrhosis of liver without ascites R18.8, Other ascites K74.60, Unspecified cirrhosis of liver K76.6, Portal hypertension N28.9, Disorder of kidney and ureter, unspecified CPT copyright 2016 [employer]. All rights reserved. The codes documented in this report are preliminary and upon aligner typewriter review may be revised to meet current compliance requirements. Marla Soto PA-C 04/12/2018 2:03:40 PM This report has been signed electronically. Jorge Alberto Ash MD Note Initiated On: 04/12/2018 1:58 PM Number of Addenda: 0 [facility] [address] [place] [address] [facility] 04/12/2018 1:58 PM INSTRUCTIONAL SPECIALIST Marla Soto PA-C GI PROCEDURE OR DERABLES [facility] * LARGE VOLUME PARACENTESIS (04/05/2018 1:19 PM CDT) Report Endoscopy POC Endoscopy Department Report __ _ Patient Name: Domenica Rivera Procedure Date: 04/05/2018 1:19 PM Date of : 1970 Classification: Outpatient Gender: Female __ _ Providers: Marla Soto PA-C, Alise Palomino MD Referring MD: Procedure: Paracentesis (Repeat) Indications: Ascites, Ascites shown on ultrasound, Diagnostic to rule out peritonitis, Cirrhosis, Cirrhosis (Alcoholic), Portal hypertension, Renal disease Medications: 1% Lidocaine 10 mL SubQ Description of Procedure: After obtaining informed consent, the procedure was performed. Throughout the procedure, the patient's blood pressure, pulse, and oxygen saturations were monitored continuously.The paracentesis was accomplished without difficulty. The patient tolerated the procedure well. Findings: Prior to the procedure, the abdomen was examined and demonstrated significant distention with ascites and a fluid wave to be present. With the patient in a supine with head elevated position, the procedure site was sterilely prepped using chloroprep and draped in the usual fashion. 10 mL of 1% lidocaine was infiltrated into the skin and subcutaneous tissues. Using a left lower quadrant approach, a small stab incision was made with a disposable blade and a 5 inch 12 gauge paracentesis needle and cannula system was inserted into the peritoneal cavity under ultrasound guidance. Aspiration demonstrated no blood and good return of peritoneal fluid. One pass was made. The trocar was then removed leaving the catheter in place. 9.8 liters of clear, yellow fluid was withdrawn using a vacuum bottle. Fluid was sent for cell count and differential and culture and sensitivities. The incision site was closed with exofin. Tegaderm were applied. 75 grams of 25% Albumin was administered during the course of the procedure to treat the patient for prophylactically for potential hypotension. Estimated Blood Loss: Estimated blood loss: none. Complications: No immediate complications. Impression: - Paracentesis successfully performed. - Test results pending. Recommendation: - Discharge patient to home (ambulatory). - Return to liver clinic as previously scheduled. - Repeat paracentesis PRN for therapeutic purposes. Attending Participation: I was present for the dolan portions of this procedure and either I or my colleague was immediately available for all non-dolan portions of the procedure. Procedure Code(s): --- Professional --- 46724, Abdominal paracentesis (diagnostic or therapeutic); with imaging guidance Diagnosis Code(s): --- Professional --- K70.31, Alcoholic cirrhosis of liver with ascites R18.8, Other ascites K74.60, Unspecified cirrhosis of liver K76.6, Portal hypertension N28.9, Disorder of kidney and ureter, unspecified CPT copyright 2016 [employer]. All rights reserved. The codes documented in this report are preliminary and upon aligner typewriter review may be revised to meet current compliance requirements. Marla Soto PA-C 04/05/2018 1:24:35 PM This report has been signed electronically. Alise Palomino MD Note Initiated On: 04/05/2018 1:19 PM Number of Addenda: 0 [facility] [address] [address] [facility] 04/05/2018 1:19 PM CDT Marla Soto PA-C GI PROCEDURE OR DERABLES [facility] * LARGE VOLUME PARACENTESIS (03/29/2018 1:50 PM CDT) Report Endoscopy POC Endoscopy Department Report __ _ Patient Name: Domenica Rivera Procedure Date: 03/29/2018 1:50 PM Date of : 1970 Classification: Outpatient Gender: Female __ _ Providers: Marla Soto PA-C, Alise Palomino MD Referring MD: Procedure: Paracentesis (Repeat) Indications: Ascites, Ascites shown on ultrasound, Diagnostic to rule out peritonitis, Cirrhosis, Cirrhosis (Alcoholic), Portal hypertension, Renal disease Medications: 1% Lidocaine 15 mL SubQ Description of Procedure: After obtaining informed consent, the procedure was performed. Throughout the procedure, the patient's blood pressure, pulse, and oxygen saturations were monitored continuously. The paracentesis was accomplished without difficulty. The patient tolerated the procedure well. Findings: Prior to the procedure, the abdomen was examined and demonstrated significant distention with ascites and a fluid wave to be present. With the patient in a supine with head elevated position, the procedure site was sterilely prepped using chloroprep and draped in the usual fashion. 15 mL of 1% lidocaine was infiltrated into the skin and subcutaneous tissues. Using a left lower quadrant approach, a small stab incision was made with a disposable blade and a 5 inch 12 gauge paracentesis needle and cannula system was inserted into the peritoneal cavity under ultrasound guidance. Aspiration demonstrated no blood and good return of peritoneal fluid. One pass was made. The trocar was then removed leaving the catheter in place. 8 liters of clear, yellow fluid was withdrawn using a vacuum bottle. Fluid was sent for cell count and differential and culture and sensitivities. The incision site was closed with exofin. Tegaderm were applied. 200 mL of 25% Albumin was administered during the course of the procedure to treat the patient for prophylactically for potential hypotension. Estimated Blood Loss: Estimated blood loss: none. Complications: No immediate complications. Impression: - Paracentesis successfully performed. - Test results pending. Recommendation: - Discharge patient to home (ambulatory). - Return to liver clinic as previously scheduled. - Repeat paracentesis PRN for therapeutic purposes. Attending Participation: I was present for the dolan portions of this procedure and either I or my colleague was immediately available for all non-dolan portions of the procedure. Procedure Code(s): --- Professional --- 73307, Abdominal paracentesis (diagnostic or therapeutic); with imaging guidance Diagnosis Code(s): --- Professional --- K70.31, Alcoholic cirrhosis of liver with ascites R18.8, Other ascites K74.60, Unspecified cirrhosis of liver K76.6, Portal hypertension N28.9, Disorder of kidney and ureter, unspecified CPT copyright 2016 [employer]. All rights reserved. The codes documented in this report are preliminary and upon aligner typewriter review may be revised to meet current compliance requirements. Marla Soto PA-C 03/29/2018 2:01:08 PM This report has been signed electronically. Alise Palomino MD Note Initiated On: 03/29/2018 1:50 PM Number of Addenda: 0 [facility] [address] [place] [address] [facility] 03/29/2018 1:50 PM CDT Marla Soto PA-C GI PROCEDURE OR DERABLES [facility] * LARGE VOLUME PARACENTESIS (03/15/2018 11:03 AM CDT) Report Endoscopy POC Endoscopy Department Report __ _ Patient Name: Domenica Rivera Procedure Date: 03/15/2018 11:03 AM Date of : 1970 Classification: Outpatient Gender: Female __ _ Providers: Marla Soto PA-C, Alise Palomino MD Referring MD: Procedure: Paracentesis (Repeat) Indications: Ascites, Ascites shown on ultrasound, Diagnostic to rule out peritonitis, Cirrhosis, Cirrhosis (Alcoholic), Portal hypertension, Renal disease Medications: 1% Lidocaine 10 mL SubQ Description of Procedure: After obtaining informed consent, the procedure was performed. Throughout the procedure, the patient's blood pressure, pulse, and oxygen saturations were monitored continuously. The paracentesis was accomplished without difficulty. The patient tolerated the procedure well. Findings: Prior to the procedure, the abdomen was examined and demonstrated significant distention with ascites and a fluid wave to be present. With the patient in a supine with head elevated position, the procedure site was sterilely prepped using chloroprep and draped in the usual fashion. 10 mL of 1% lidocaine was infiltrated into the skin and subcutaneous tissues. Using a left lower quadrant approach, a small stab incision was made with a disposable blade and a 5 inch 12 gauge paracentesis needle and cannula system was inserted into the peritoneal cavity under ultrasound guidance. Aspiration demonstrated no blood and good return of peritoneal fluid. One pass was made. The trocar was then removed leaving the catheter in place. 7 liters of clear, yellow fluid was withdrawn using a vacuum bottle. Fluid was sent for cell count and differential and culture and sensitivities. The incision site was closed with exofin. Tegaderm were applied. 200 mL of 25% Albumin was administered during the course of the procedure to treat the patient for prophylactically for potential hypotension. Estimated Blood Loss: Estimated blood loss: none. Complications: No immediate complications. Impression: - Paracentesis successfully performed. - Test results pending. Recommendation: - Discharge patient to home (ambulatory). - Return to liver clinic as previously scheduled. - Repeat paracentesis PRN for therapeutic purposes. Attending Participation: I was present for the dolan portions of this procedure and either I or my colleague was immediately available for all non-dolan portions of the procedure. Procedure Code(s): --- Professional --- 52229, Abdominal paracentesis (diagnostic or therapeutic); with imaging guidance Diagnosis Code(s): --- Professional --- K70.31, Alcoholic cirrhosis of liver with ascites R18.8, Other ascites K74.60, Unspecified cirrhosis of liver K76.6, Portal hypertension N28.9, Disorder of kidney and ureter, unspecified CPT copyright 2016 [employer]. All rights reserved. The codes documented in this report are preliminary and upon aligner typewriter review may be revised to meet current compliance requirements. Marla Soto PA-C 03/15/2018 11:06:15 AM This report has been signed electronically. Alise Palomino MD Note Initiated On: 03/15/2018 11:03 AM Number of Addenda: 0 [facility] [address] [facility], [place] [address] [facility] 03/15/2018 11:0 3 AM CDT Marla Soto PA-C GI PROCEDURE OR DERABLES [facility] * LARGE VOLUME PARACENTESIS (03/08/2018 12:30 PM CDT) Report Endoscopy POC Endoscopy Department Report __ _ Patient Name: Domenica Rivera Procedure Date: 03/08/2018 12:30 PM Date of : 1970 Classification: Outpatient Gender: Female __ _ Providers: Marla Soto PA-C, Alise Palomino MD Referring MD: Procedure: Paracentesis (Repeat) Indications: Ascites, Ascites shown on ultrasound, Diagnostic to rule out peritonitis, Cirrhosis, Cirrhosis (Alcoholic), Hepatitis C, Portal hypertension Medications: 1% Lidocaine 10 mL SubQ Description of Procedure: After obtaining informed consent, the procedure was performed. Throughout the procedure, the patient's blood pressure, pulse, and oxygen saturations were monitored continuously. The paracentesis was accomplished without difficulty. The patient tolerated the procedure well. Findings: Prior to the procedure, the abdomen was examined and demonstrated significant distention with ascites and a fluid wave to be present. With the patient in a supine with head elevated position, the procedure site was sterilely prepped using chloroprep and draped in the usual fashion. 10 mL of 1% lidocaine was infiltrated into the skin and subcutaneous tissues. Using a left lower quadrant approach, a small stab incision was made with a disposable blade and a 5 inch 12 gauge paracentesis needle and cannula system was inserted into the peritoneal cavity under ultrasound guidance. Aspiration demonstrated no blood and good return of peritoneal fluid. One pass was made. The trocar was then removed leaving the catheter in place. 7 liters of clear, yellow fluid was withdrawn using a vacuum bottle. Fluid was sent for cell count and differential and culture and sensitivities. The incision site was closed with exofin. Tegaderm were applied. 200 mL of 25% Albumin was administered during the course of the procedure to treat the patient for prophylactically for potential hypotension. Estimated Blood Loss: Estimated blood loss: none. Complications: No immediate complications. Impression: - Paracentesis successfully performed. - Test results pending. Recommendation: - Discharge patient to home (ambulatory). - Return to liver clinic as previously scheduled. - Repeat paracentesis PRN for therapeutic purposes. Attending Participation: I was present for the dolan portions of this procedure and either I or my colleague was immediately available for all non-dolan portions of the procedure. Procedure Code(s): --- Professional --- 59776, Abdominal paracentesis (diagnostic or therapeutic); with imaging guidance Diagnosis Code(s): --- Professional --- K70.31, Alcoholic cirrhosis of liver with ascites R18.8, Other ascites K74.60, Unspecified cirrhosis of liver K76.6, Portal hypertension CPT copyright 2016 [employer]. All rights reserved. The codes documented in this report are preliminary and upon aligner typewriter review may be revised to meet current compliance requirements. Marla Soto PA-C 03/08/2018 12:34:20 PM This report has been signed electronically. Alise Palomino MD Note Initiated On: 03/08/2018 12:30 PM Number of Addenda: 0 [facility] [address] [address] [facility] 03/08/2018 12:3 0 PM CDT Marla Soto PA-C GI PROCEDURE OR DERABLES [facility] * LARGE VOLUME PARACENTESIS (03/01/2018 12:53 PM CDT) Report Endoscopy POC Endoscopy Department Report __ _ Patient Name: Domenica Rivera Procedure Date: 03/01/2018 12:53 PM Date of : 1970 Classification: Outpatient Gender: Female __ _ Providers: Marla Soto PA-C, Alise Palomino MD Referring MD: Procedure: Paracentesis (Repeat) Indications: Ascites, Ascites shown on ultrasound, Diagnostic to rule out peritonitis, Cirrhosis, Cirrhosis (Alcoholic), Portal hypertension, Renal disease Medications: 1% Lidocaine 10 mL SubQ Description of Procedure: After obtaining informed consent, the procedure was performed. Throughout the procedure, the patient's blood pressure, pulse, and oxygen saturations were monitored continuously.The paracentesis was accomplished without difficulty. The patient tolerated the procedure well. Findings: Prior to the procedure, the abdomen was examined and demonstrated significant distention with ascites and a fluid wave to be present. With the patient in a supine with head elevated position, the procedure site was sterilely prepped using chloroprep and draped in the usual fashion. 10 mL of 1% lidocaine was infiltrated into the skin and subcutaneous tissues. Using a left lower quadrant approach, a small stab incision was made with a disposable blade and a 5 inch 12 gauge paracentesis needle and cannula system was inserted into the peritoneal cavity under ultrasound guidance. Aspiration demonstrated no blood and good return of peritoneal fluid. One pass was made. The trocar was then removed leaving the catheter in place. 8.5 liters of clear, yellow fluid was withdrawn using a vacuum bottle. Fluid was sent for cell count and differential and culture and sensitivities. The incision site was closed with exofin. Tegaderm were applied. 250 mL of 25% Albumin was administered during the course of the procedure to treat the patient for prophylactically for potential hypotension. Estimated Blood Loss: Estimated blood loss: none. Complications: No immediate complications. Impression: - Paracentesis successfully performed. - Test results pending. Recommendation: - Discharge patient to home (ambulatory). - Return to liver clinic as previously scheduled. - Repeat paracentesis PRN for therapeutic purposes. Attending Participation: I was present for the dolan portions of this procedure and either I or my colleague was immediately available for all non-dolan portions of the procedure. Procedure Code(s): --- Professional --- 38624, Abdominal paracentesis (diagnostic or therapeutic); with imaging guidance Diagnosis Code(s): --- Professional --- K70.31, Alcoholic cirrhosis of liver with ascites R18.8, Other ascites K74.60, Unspecified cirrhosis of liver K76.6, Portal hypertension N28.9, Disorder of kidney and ureter, unspecified CPT copyright 2016 [employer]. All rights reserved. The codes documented in this report are preliminary and upon aligner typewriter review may be revised to meet current compliance requirements. Marla Soto PA-C 03/01/2018 1:06:50 PM This report has been signed electronically. Alise Palomino MD Note Initiated On: 03/01/2018 12:53 PM Number of Addenda: 0 [facility] [address] [place], [place] [id number] [place] [address] [facility] 03/01/2018 12:5 3 PM CDT Marla Soto PA-C GI PROCEDURE OR DERABLES [facility] * LARGE VOLUME PARACENTESIS (02/22/2018 2:42 PM CDT) Report Endoscopy POC Endoscopy Department Report __ _ Patient Name: Domenica Rivera Procedure Date: 02/22/2018 2:42 PM Date of : 1970 Classification: Outpatient Gender: Female __ _ Providers: Marla Soto PA-C, Alise Palomino MD Referring MD: Procedure: Paracentesis (Repeat) Indications: Ascites, Ascites shown on ultrasound, Diagnostic to rule out peritonitis, Cirrhosis, Cirrhosis (Alcoholic), Portal hypertension, Renal disease Medications: 1% Lidocaine 10 mL SubQ Description of Procedure: After obtaining informed consent, the procedure was performed. Throughout the procedure, the patient's blood pressure, pulse, and oxygen saturations were monitored continuously. The paracentesis was accomplished without difficulty. The patient tolerated the procedure well. Findings: Prior to the procedure, the abdomen was examined and demonstrated moderate distention with ascites and a fluid wave to be present. With the patient in a supine with head elevated position, the procedure site was sterilely prepped using chloroprep and draped in the usual fashion. 10 mL of 1% lidocaine was infiltrated into the skin and subcutaneous tissues. Using a left lower quadrant approach, a small stab incision was made with a disposable blade and a 5 inch 12 gauge paracentesis needle and cannula system was inserted into the peritoneal cavity under ultrasound guidance. Aspiration demonstrated no blood and good return of peritoneal fluid. One pass was made. The trocar was then removed leaving the catheter in place. 6.3 liters of clear, yellow fluid was withdrawn using a vacuum bottle. Fluid was sent for cell count and differential and culture and sensitivities. The incision site was closed with exofin. Tegaderm were applied. 150 mL of 25% Albumin was administered during the course of the procedure to treat the patient for prophylactically for potential hypotension. Estimated Blood Loss: Estimated blood loss: none. Complications: No immediate complications. Impression: - Paracentesis successfully performed. - Test results pending. Recommendation: - Discharge patient to home (via wheelchair). - Return to liver clinic as previously scheduled. - Repeat paracentesis PRN for therapeutic purposes. Attending Participation: I was present for the dolan portions of this procedure and either I or my colleague was immediately available for all non-dolan portions of the procedure. Procedure Code(s): --- Professional --- 65467, Abdominal paracentesis (diagnostic or therapeutic); with imaging guidance Diagnosis Code(s): --- Professional --- K70.31, Alcoholic cirrhosis of liver with ascites R18.8, Other ascites K74.60, Unspecified cirrhosis of liver K76.6, Portal hypertension N28.9, Disorder of kidney and ureter, unspecified CPT copyright 2016 [employer]. All rights reserved. The codes documented in this report are preliminary and upon aligner typewriter review may be revised to meet current compliance requirements. Marla Soto PA-C 02/22/2018 2:56:18 PM This report has been signed electronically. Alise Palomino MD Note Initiated On: 02/22/2018 2:42 PM Number of Addenda: 0 [facility] [address] [place] [address] [facility] 02/22/2018 2:42 PM CDT Marla Soto PA-C GI PROCEDURE OR DERABLES [facility] * LARGE VOLUME PARACENTESIS (02/15/2018 2:15 PM CDT) Report Endoscopy POC Endoscopy Department Report __ _ Patient Name: Domenica Rivera Procedure Date: 02/15/2018 2:15 PM Date of : 1970 Classification: Outpatient Gender: Female __ _ Providers: Marla Soto PA-C, Alise Palomino MD Referring MD: Procedure: Paracentesis (Repeat) Indications: Ascites, Ascites shown on ultrasound, Diagnostic to rule out peritonitis, Cirrhosis, Cirrhosis (Alcoholic), Portal hypertension, Renal disease Medications: 1% Lidocaine 10 mL SubQ Description of Procedure: After obtaining informed consent, the procedure was performed. Throughout the procedure, the patient's blood pressure, pulse, and oxygen saturations were monitored continuously. The paracentesis was accomplished without difficulty. The patient tolerated the procedure well. Findings: Prior to the procedure, the abdomen was examined and demonstrated moderate distention with ascites and a fluid wave to be present. With the patient in a supine with head elevated position, the procedure site was sterilely prepped using chloroprep and draped in the usual fashion. 10 mL of 1% lidocaine was infiltrated into the skin and subcutaneous tissues. Using a left lower quadrant approach, a small stab incision was made with a disposable blade and a 5 inch 12 gauge paracentesis needle and cannula system was inserted into the peritoneal cavity under ultrasound guidance. Aspiration demonstrated no blood and good return of peritoneal fluid. One pass was made. The trocar was then removed leaving the catheter in place. 6 liters of clear, yellow fluid was withdrawn using a vacuum bottle. Fluid was sent for cell count and differential and culture and sensitivities. The incision site was closed with exofin. A Band-Aid was applied. 150 mL of 25% Albumin was administered during the course of the procedure to treat the patient for underlying renal failure and for prophylactically for potential hypotension. Estimated Blood Loss: Estimated blood loss: none. Complications: No immediate complications. Impression: - Paracentesis successfully performed. - Test results pending. Recommendation: - Discharge patient to home (ambulatory). - Return to liver clinic as previously scheduled. - Repeat paracentesis PRN for therapeutic purposes. Attending Participation: I was present for the dolan portions of this procedure and either I or my colleague was immediately available for all non-dolan portions of the procedure. Procedure Code(s): --- Professional --- 81256, Abdominal paracentesis (diagnostic or therapeutic); with imaging guidance Diagnosis Code(s): --- Professional --- K70.31, Alcoholic cirrhosis of liver with ascites R18.8, Other ascites K74.60, Unspecified cirrhosis of liver K76.6, Portal hypertension N28.9, Disorder of kidney and ureter, unspecified CPT copyright 2016 [employer]. All rights reserved. The codes documented in this report are preliminary and upon aligner typewriter review may be revised to meet current compliance requirements. Marla Soto PA-C 02/15/2018 2:21:06 PM This report has been signed electronically. Alise Palomino MD Note Initiated On: 02/15/2018 2:15 PM Number of Addenda: 0 [facility] [address] [place] [address] [facility] 02/15/2018 2:15 PM CDT Marla Soto PA-C GI PROCEDURE OR DERABLES [facility] * (ABNORMAL) DRUG SCREEN TOX URINE PANEL (02/04/2018 2:48 PM CDT) Only the most recent of2 resultswithin the time period is included. Amphetamines Screen Urine Negative Negative : < 1000 ng/mL 02/04/2018 4:09 PM CDT [facility] Barbiturates Screen Urine Negative Negative : < 200 ng/mL 02/04/2018 4:09 PM CDT [facility] Benzodiazepine Screen Urine Negative Negative : < 200 ng/mL 02/04/2018 4:09 PM T [facility] Opiates Urine Negative Negative : < 300 ng/mL 02/04/2018 4:09 PM T [facility] Cocaine Metabolites Urine Negative Negative : < 300 ng/mL 02/04/2018 4:09 PM T [facility] Phencyclidine Screen Urine Negative Negative : < 25 ng/ml 02/04/2018 4:09 PM T [facility] Cannabinoids Screen Urine Positive(A) Negative : <50 ng/mL 02/04/2018 4:09 PM T [facility] Comment: Positive urine cannabinoids (THC) screening results should be confirmed by another generally accepted non-immunological method such as gas chromatography or mass spectrometry. Methadone Screen Urine Negative Negative : < 300 ng/mL 02/04/2018 4:09 PM T [facility] Urine URINE / Unknown Collection / Unknown 02/04/2018 2:48 PM CDT 02/04/2018 3:45 PM CDT Narrative [facility] - 02/04/2018 4:09 PM CDT The Urine Toxicology Screening Panel does not screen for Propoxyphene, Meprobamate, Carisoprodol, Trazodone, uupx-vyj-bgzkmcl medications and/or volatiles (Acetone, Isopropanol, Methanol or Ethylene Glycol). Ethanol, Salicylate, Acetaminophen, Tricyclic Antidepressants and several therapeutic drugs may be individually assayed in serum or plasma specimen. Toxicology testing by the [facility] is an aid to medical diagnosis and treatment of patients. No documented chain of custody was maintained. Results are intended to be used for clinical purposes only. Damian Pulido MD LAB - URINE CHEMISTR Y ORDERABLES [place] [id number] [address] [phone] * LARGE VOLUME PARACENTESIS (02/03/2018 9:36 AM CDT) Report Endoscopy POC Endoscopy Department Report __ _ Patient Name: Domenica Rivera Procedure Date: 02/03/2018 9:36 AM Date of : 1970 Classification: Outpatient Gender: Female __ _ Providers: Jory Bradley NP, María Elena Núñez MD Referring MD: Procedure: Paracentesis (Repeat) Indications: Ascites, Ascites shown on ultrasound, Cirrhosis, Portal hypertension Medications: 1% Lidocaine 20 mL SubQ Description of Procedure: After obtaining informed consent, the procedure was performed. Throughout the procedure, the patient's blood pressure, pulse, and oxygen saturations were monitored continuously. The paracentesis was accomplished without difficulty. The patient tolerated the procedure well. Findings: With the patient in a supine with head elevated position, the procedure site was sterilely prepped using chloroprep and draped in the usual fashion. 20 mL of 1% lidocaine with epinephrine was infiltrated into the skin and subcutaneous tissues. Using a left lower quadrant approach, a small stab incision was made with a disposable blade and a 5 inch 16 gauge paracentesis needle and cannula system was inserted into the peritoneal cavity under ultrasound guidance. Aspiration demonstrated no blood and good return of peritoneal fluid. One pass was made. The trocar was then removed leaving the catheter in place. 6.5 liters of clear, yellow fluid was withdrawn using a vacuum bottle. Fluid was sent for cell count and differential and culture and sensitivities. When the procedure was completed the catheter was removed intact the puncture site was closed with exofin and a tegaderm dressign was applied.puncture site was closed with site was closed with exofin. Tegaderm was applied. 200 mL of 25% Albumin was administered after the procedure to treat the patient for prophylactically for potential hypotension. Estimated Blood Loss: Estimated blood loss: none. Complications: No immediate complications. Impression: - Paracentesis successfully performed. Recommendation: - Discharge patient to home (ambulatory). - Low sodium diet indefinitely. - Return to GI clinic as previously scheduled. Attending Participation: I was present for the dolan portions of this procedure and either I or my colleague was immediately available for all non-dolan portions of the procedure. Procedure Code(s): --- Professional --- 85472, Abdominal paracentesis (diagnostic or therapeutic); with imaging guidance Diagnosis Code(s): --- Professional --- R18.8, Other ascites K74.60, Unspecified cirrhosis of liver K76.6, Portal hypertension CPT copyright 2016 [employer]. All rights reserved. The codes documented in this report are preliminary and upon aligner typewriter review may be revised to meet current compliance requirements. Jory Bradley APN ____ Jory Bradley NP 02/03/2018 9:46:21 AM This report has been signed electronically. ___ María Elena Núñez MD Note Initiated On: 02/03/2018 9:36 AM Number of Addenda: 0 [facility] [address] [place] [address] [facility] 02/03/2018 9:36 AM CDT Jory Bradley INSTRUCTIONAL SUPERVISOR-DB2 DEVELOPER GI PROCEDURE ORDERABLES [facility] * LARGE VOLUME PARACENTESIS (01/28/2018 2:13 PM CDT) Report Endoscopy POC Endoscopy Department Report _ Patient Name: Domenica Rivera Procedure Date: 01/28/2018 2:13 PM Date of : 1970 Classification: Outpatient Gender: Female _ Providers: Marla Soto PA-C, Jorge Alberto Ash MD Referring MD: Procedure: Paracentesis (Repeat) Indications: Ascites, Ascites shown on ultrasound, Diagnostic to rule out peritonitis, Cirrhosis, Cirrhosis (Alcoholic), Portal hypertension, Renal disease Medications: 1% Lidocaine 10 mL SubQ Description of Procedure: After obtaining informed consent, the procedure was performed. Throughout the procedure, the patient's blood pressure, pulse, and oxygen saturations were monitored continuously. The paracentesis was accomplished without difficulty. The patient tolerated the procedure well. Findings: Prior to the procedure, the abdomen was examined and demonstrated significant distention with ascites and a fluid wave to be present. With the patient in a supine with head elevated position, the procedure site was sterilely prepped using chloroprep and draped in the usual fashion. 10 mL of 1% lidocaine was infiltrated into the skin and subcutaneous tissues. Using a left lower quadrant approach, a small stab incision was made with a disposable blade and a 5 inch 12 gauge paracentesis needle and cannula system was inserted into the peritoneal cavity under ultrasound guidance. Aspiration demonstrated no blood and good return of peritoneal fluid. One pass was made. The trocar was then removed leaving the catheter in place. 7 liters of clear, yellow fluid was withdrawn using a vacuum bottle. Fluid was sent for cell count and differential and culture and sensitivities. The incision site was closed with exofin. Tegaderm were applied. 200 mL of 25% Albumin was administered during the course of the procedure to treat the patient for underlying renal failure. Estimated Blood Loss: Estimated blood loss: none. Complications: No immediate complications. Impression: - Paracentesis successfully performed. - Test results pending. Recommendation: - Discharge patient to home (ambulatory). - Return to liver clinic as previously scheduled. - Repeat paracentesis PRN for therapeutic purposes. Attending Participation: I was present for the dolan portions of this procedure and either I or my colleague was immediately available for all non-dolan portions of the procedure. Procedure Code(s): --- Professional --- 59764, Abdominal paracentesis (diagnostic or therapeutic); with imaging guidance Diagnosis Code(s): --- Professional --- K70.31, Alcoholic cirrhosis of liver with ascites R18.8, Other ascites K74.60, Unspecified cirrhosis of liver K76.6, Portal hypertension N28.9, Disorder of kidney and ureter, unspecified CPT copyright 2016 [employer]. All rights reserved. The codes documented in this report are preliminary and upon aligner typewriter review may be revised to meet current compliance requirements. Marla Soto PA-C 01/28/2018 2:21:42 PM This report has been signed electronically. __ Jorge Alberto Ash MD Note Initiated On: 01/28/2018 2:13 PM Number of Addenda: 0 [facility] [address] [place] [address] [facility] 01/28/2018 2:13 PM CDT Marla Soto PA-C GI PROCEDURE OR DERABLES [facility] * LARGE VOLUME PARACENTESIS (01/21/2018 3:19 PM CDT) Report Endoscopy POC Endoscopy Department Report __ _ Patient Name: Domenica Rivera Procedure Date: 01/21/2018 3:19 PM Date of : 1970 Classification: Outpatient Gender: Female __ _ Providers: Marla Soto PA-C, Alise Palomino MD Referring MD: Procedure: Paracentesis (Repeat) Indications: Ascites, Ascites shown on ultrasound, Diagnostic to rule out peritonitis, Cirrhosis, Cirrhosis (Alcoholic), Portal hypertension, Renal disease Medications: 1% Lidocaine 10 mL SubQ Description of Procedure: After obtaining informed consent, the procedure was performed. Throughout the procedure, the patient's blood pressure, pulse, and oxygen saturations were monitored continuously. The paracentesis was accomplished without difficulty. The patient tolerated the procedure well. Findings: Prior to the procedure, the abdomen was examined and demonstrated moderate distention with ascites and a fluid wave to be present. With the patient in a supine with head elevated position, the procedure site was sterilely prepped using chloroprep and draped in the usual fashion. 10 mL of 1% lidocaine was infiltrated into the skin and subcutaneous tissues. Using a left lower quadrant approach, a small stab incision was made with a disposable blade and a 5 inch 12 gauge paracentesis needle and cannula system was inserted into the peritoneal cavity under ultrasound guidance. Aspiration demonstrated no blood and good return of peritoneal fluid. One pass was made. The trocar was then removed leaving the catheter in place. 6 liters of clear, yellow fluid was withdrawn using a vacuum bottle. Fluid was sent for cell count and differential and culture and sensitivities. The incision site was closed with exofin. Tegaderm were applied. 150 mL of 25% Albumin was administered during the course of the procedure to treat the patient for prophylactically for potential hypotension. Estimated Blood Loss: Estimated blood loss: none. Complications: No immediate complications. Impression: - Paracentesis successfully performed. - Test results pending. Recommendation: - Discharge patient to home (ambulatory). - Return to liver clinic as previously scheduled. - Repeat paracentesis PRN for therapeutic purposes. Attending Participation: I was present for the dolan portions of this procedure and either I or my colleague was immediately available for all non-dolan portions of the procedure. Procedure Code(s): --- Professional --- 68288, Abdominal paracentesis (diagnostic or therapeutic); with imaging guidance Diagnosis Code(s): --- Professional --- K70.31, Alcoholic cirrhosis of liver with ascites R18.8, Other ascites K74.60, Unspecified cirrhosis of liver K76.6, Portal hypertension N28.9, Disorder of kidney and ureter, unspecified CPT copyright 2016 [employer]. All rights reserved. The codes documented in this report are preliminary and upon aligner typewriter review may be revised to meet current compliance requirements. Marla Soto PA-C 01/21/2018 3:23:39 PM This report has been signed electronically. Alise Palomino MD Note Initiated On: 01/21/2018 3:19 PM Number of Addenda: 0 [facility] [address] [facility] [place] [address] [facility] 01/21/2018 3:19 PM CDT Marla Soto PA-C GI PROCEDURE OR DERABLES [facility] * LARGE VOLUME PARACENTESIS (01/14/2018 9:58 AM CDT) Report Endoscopy POC Endoscopy Department Report __ _ Patient Name: Domenica Rivera Procedure Date: 01/14/2018 9:58 AM Date of : 1970 Classification: Outpatient Gender: Female __ _ Providers: Marla Soto PA-C, Israel Sparrow MD Referring MD: Procedure: Paracentesis (Repeat) Indications: Ascites, Ascites shown on ultrasound, Diagnostic to rule out peritonitis, Cirrhosis, Cirrhosis (Alcoholic), Portal hypertension, Renal disease Medications: 1% Lidocaine 10 mL SubQ Description of Procedure: After obtaining informed consent, the procedure was performed. Throughout the procedure, the patient's blood pressure, pulse, and oxygen saturations were monitored continuously. The paracentesis was accomplished without difficulty. The patient tolerated the procedure well. Findings: Prior to the procedure, the abdomen was examined and demonstrated moderate distention with ascites and a fluid wave to be present. With the patient in a supine with head elevated position, the procedure site was sterilely prepped using chloroprep and draped in the usual fashion. 10 mL of 1% lidocaine was infiltrated into the skin and subcutaneous tissues. Using a left lower quadrant approach, a small stab incision was made with a disposable blade and a 5 inch 12 gauge paracentesis needle and cannula system was inserted into the peritoneal cavity under ultrasound guidance. Aspiration demonstrated no blood and good return of peritoneal fluid. One pass was made. The trocar was then removed leaving the catheter in place. 5.7 liters of clear, yellow fluid was withdrawn using a vacuum bottle. Fluid was sent for cell count and differential and culture and sensitivities. The incision site was closed with exofin. Tegaderm were applied. 150 mL of 25% Albumin was administered during the course of the procedure to treat the patient for prophylactically for potential hypotension. Estimated Blood Loss: Estimated blood loss: none. Complications: No immediate complications. Impression: - Paracentesis successfully performed. - Test results pending. Recommendation: - Discharge patient to home (ambulatory). - Return to liver clinic as previously scheduled. - Repeat paracentesis PRN for therapeutic purposes. Attending Participation: I was present for the dolan portions of this procedure and either I or my colleague was immediately available for all non-dolan portions of the procedure. Procedure Code(s): --- Professional --- 81150, Abdominal paracentesis (diagnostic or therapeutic); with imaging guidance Diagnosis Code(s): --- Professional --- K70.31, Alcoholic cirrhosis of liver with ascites R18.8, Other ascites K74.60, Unspecified cirrhosis of liver K76.6, Portal hypertension N28.9, Disorder of kidney and ureter, unspecified CPT copyright 2016 [employer]. All rights reserved. The codes documented in this report are preliminary and upon aligner typewriter review may be revised to meet current compliance requirements. Marla Soto PA-C 01/14/2018 10:03:18 AM This report has been signed electronically. Israel Sparrow MD Note Initiated On: 01/14/2018 9:58 AM Number of Addenda: 0 [facility] [address] [place] [address] [facility] 01/14/2018 9:58 AM CDT Marla Soto PA-C GI PROCEDURE OR DERABLES [facility] * LARGE VOLUME PARACENTESIS (01/07/2018 1:27 PM CDT) Report Endoscopy POC Endoscopy Department Report __ _ Patient Name: Domenica Rivera Procedure Date: 01/07/2018 1:27 PM Date of : 1970 Classification: Outpatient Gender: Female __ _ Providers: Marla Soto PA-C, Israel Sparrow MD Referring MD: Procedure: Paracentesis (Repeat) Indications: Ascites, Ascites shown on ultrasound, Diagnostic to rule out peritonitis, Cirrhosis, Cirrhosis (Alcoholic), Portal hypertension, Renal disease Medications: 1% Lidocaine 10 mL SubQ Description of Procedure: After obtaining informed consent, the procedure was performed. Throughout the procedure, the patient's blood pressure, pulse, and oxygen saturations were monitored continuously. The paracentesis was accomplished without difficulty. The patient tolerated the procedure well. Findings: Prior to the procedure, the abdomen was examined and demonstrated moderate distention with ascites and a fluid wave to be present. With the patient in a supine with head elevated position, the procedure site was sterilely prepped using chloroprep and draped in the usual fashion. 10 mL of 1% lidocaine was infiltrated into the skin and subcutaneous tissues. Using a left lower quadrant approach, a small stab incision was made with a disposable blade and a 5 inch 12 gauge paracentesis needle and cannula system was inserted into the peritoneal cavity under ultrasound guidance. Aspiration demonstrated no blood and good return of peritoneal fluid. One pass was made. The trocar was then removed leaving the catheter in place. 5 liters of clear, yellow fluid was withdrawn using a vacuum bottle. Fluid was sent for cell count and differential and culture and sensitivities. The incision site was closed with exofin. Tegaderm were applied. 150 mL of 25% Albumin was administered during the course of the procedure to treat the patient for prophylactically for potential hypotension. Estimated Blood Loss: Estimated blood loss: none. Complications: No immediate complications. Impression: - Paracentesis successfully performed. - Test results pending. Recommendation: - Discharge patient to home (ambulatory). - Return to liver clinic as previously scheduled. - Repeat paracentesis PRN for therapeutic purposes. Attending Participation: I was present for the dolan portions of this procedure and either I or my colleague was immediately available for all non-dolan portions of the procedure. Procedure Code(s): --- Professional --- 46257, Abdominal paracentesis (diagnostic or therapeutic); with imaging guidance Diagnosis Code(s): --- Professional --- K70.31, Alcoholic cirrhosis of liver with ascites R18.8, Other ascites K74.60, Unspecified cirrhosis of liver K76.6, Portal hypertension N28.9, Disorder of kidney and ureter, unspecified CPT copyright 2016 [employer]. All rights reserved. The codes documented in this report are preliminary and upon aligner typewriter review may be revised to meet current compliance requirements. Marla Soto PA-C 01/07/2018 1:32:40 PM This report has been signed electronically. Israel Sparrow MD Note Initiated On: 01/07/2018 1:27 PM Number of Addenda: 0 [facility] [address] [place] [address] [facility] 01/07/2018 1:27 PM CDT Marla Soto PA-C GI PROCEDURE OR DERABLES [facility] * LARGE VOLUME PARACENTESIS (12/31/2017 1:48 PM CDT) Report Endoscopy POC Endoscopy Department Report __ _ Patient Name: Domenica Rivera Procedure Date: 12/31/2017 1:48 PM Date of : 1970 Classification: Outpatient Gender: Female __ _ Providers: Marla Soto PA-C, Alise Palomino MD Referring MD: Procedure: Paracentesis (Repeat) Indications: Ascites, Ascites shown on ultrasound, Diagnostic to rule out peritonitis, Cirrhosis, Cirrhosis (Alcoholic), Portal hypertension, Renal disease Medications: 1% Lidocaine 10 mL SubQ Description of Procedure: After obtaining informed consent, the procedure was performed. Throughout the procedure, the patient's blood pressure, pulse, and oxygen saturations were monitored continuously.The paracentesis was accomplished without difficulty. The patient tolerated the procedure well. Findings: Prior to the procedure, the abdomen was examined and demonstrated significant distention with ascites and a fluid wave to be present. With the patient in a supine with head elevated position, the procedure site was sterilely prepped using chloroprep and draped in the usual fashion. 10 mL of 1% lidocaine was infiltrated into the skin and subcutaneous tissues. Using a left lower quadrant approach, a small stab incision was made with a disposable blade and a 5 inch 12 gauge paracentesis needle and cannula system was inserted into the peritoneal cavity under ultrasound guidance. Aspiration demonstrated no blood and good return of peritoneal fluid. One pass was made. The trocar was then removed leaving the catheter in place. 7.5 liters of clear, yellow fluid was withdrawn using a vacuum bottle. Fluid was sent for cell count and differential and culture and sensitivities. The incision site was closed with exofin. Tegaderm were applied. 200 mL of 25% Albumin was administered during the course of the procedure to treat the patient for prophylactically for potential hypotension. Estimated Blood Loss: Estimated blood loss: none. Complications: No immediate complications. Impression: - Paracentesis successfully performed. - Test results pending. Recommendation: - Discharge patient to home (ambulatory). - Return to liver clinic as previously scheduled. - Repeat paracentesis PRN for therapeutic purposes. Attending Participation: I was present for the dolan portions of this procedure and either I or my colleague was immediately available for all non-dolan portions of the procedure. Procedure Code(s): --- Professional --- 24292, Abdominal paracentesis (diagnostic or therapeutic); with imaging guidance Diagnosis Code(s): --- Professional --- K70.31, Alcoholic cirrhosis of liver with ascites R18.8, Other ascites K74.60, Unspecified cirrhosis of liver K76.6, Portal hypertension N28.9, Disorder of kidney and ureter, unspecified CPT copyright 2016 [employer]. All rights reserved. The codes documented in this report are preliminary and upon aligner typewriter review may be revised to meet current compliance requirements. Marla Soto PA-C 12/31/2017 3:36:23 PM This report has been signed electronically. Alise Palomino MD Note Initiated On: 12/31/2017 1:48 PM Number of Addenda: 0 [facility] [address] [facility] [place] [address] [facility] 12/31/2017 1:48 PM CDT Marla Soto PA-C GI PROCEDURE OR DERABLES [facility] * (ABNORMAL) US BREAST LEFT LTD (12/31/2017 12:29 PM CDT) Anatomical Region Laterality Modality Breast Left Mammography 12/31/2017 12:5 2 PM CDT Narrative 12/31/2017 12:54 PM CDT LIMITED LEFT BREAST ULTRASOUND: CLINICAL HISTORY: Recalled from baseline screening mammography for evaluation of a questioned mass in the lower inner anterior left breast. COMPARISON EXAM(S): Baseline screening mammography 12/24/2017. LIMITED LEFT BREAST ULTRASOUND FINDINGS: Sonographic evaluation of the o'clock breast performed by the courier delivery driver. At 8:00, 4 cm from the nipple, an oval circumscribed hypoechoic mass measures 1.6 x 0.5 x 1.2 cm. There is a calcification within the mass on mammography and ultrasound. The mass is considered probably benign and is favored to represent a fibroadenoma. IMPRESSION AND RECOMMENDATION: Mammographic and sonographic left breast masses o'clock, 4 cm from the nipple. It is considered probably benign and is favored to represent a fibroadenoma. Six-month follow-up left breast targeted ultrasound is recommended to ensure short-term stability. The option of biopsy was also discussed. She prefers follow-up. The findings and recommendations were discussed with the patient and she was provided a written summary at the time of her exam. BI-RADS CODE: BI-RADS Category 3: Probably benign finding, short interval follow up suggested. This report was electronically signed by SACHIN GOODE M.D. on 12/31/2017 12:54 PM . Sachin Goode MD US ORDERABLES * MAMMO BILAT SCREENING (12/24/2017 1:15 PM [...] seen bilaterally. Дмитрий Chandler MD MAMMO ORDERABLES * ECHO STRESS TEST W DOBUTAMINE (12/24/2017 12:27 PM CDT) Anatomical Region Laterality Modality Color Flow Doppl er 12/24/2017 11:1 1 AM CDT Narrative 12/24/2017 1:13 PM CDT Procedure Note Unknown, ProviderMD - 12/24/2017 Дмитрий Chandler MD ECHOCARDIOGRAPHY RAD IANT * ECHO DOPPLER ONLY (12/24/2017 12:27 PM CDT) Anatomical Region Laterality Modality Color Flow Doppl er 12/24/2017 10:4 2 AM CDT Narrative Procedure Note Unknown, ProviderMD - 12/24/2017 Дмитрий Chandler MD ECHOCARDIOGRAPHY RAD IANT * CT LIVER 3 PHASE W PELVIS (12/24/2017 9:51 AM CDT) Anatomical Region Laterality Modality Abdomen Computed Tomogra phy 12/24/2017 10:4 2 AM CDT Impressions 12/24/2017 4:25 PM CDT IMPRESSION: 1. No evidence of hepatocellular carcinoma. 2. Cirrhosis with sequelae of portal hypertension. Dictated by Jadyn Zapata MD (vice president financial). I, Dr. GLO URIARTE M.D. have personally reviewed and interpreted this examination/study. This report was electronically signed by GLO URIARTE M.D. on 12/24/2017 4:25 PM . Narrative 12/24/2017 4:25 PM CDT EXAMINATION: Computed tomography (CT) of the abdomen with contrast HISTORY: Z01.818: Pre-transplant evaluation for liver transplant E11.00: Type 2 diabetes mellitus with hyperosmolarity without coma, unspecified whether watermaster insulin use K70.9: Alcoholic liver disease B18.2: Chronic hepatitis C with hepatic coma TECHNIQUE: Multislice helical 2 and 5 mm axial images of the abdomen were obtained in the arterial, venous, and delayed phases following the uneventful administration of 150 mL of Omnipaque 350 intravenous contrast according to 3-phase liver protocol. Coronal reconstructions were performed. COMPARISON: No prior FINDINGS: There are no arterially enhancing observations in the liver. The liver is nodular with confluent fibrosis, compatible with cirrhosis. Gastric and perisplenic varices are seen. Esophageal and small gastric varices are present. No intrahepatic or extrahepatic biliary ductal dilatation is seen. The portal vein is patent. The hepatic vasculature is patent and the arterial anatomy is conventional. The gallbladder wall is mildly thickened with surrounding fluid. The pancreas and adrenal glands appear normal. The spleen is enlarged measuring 17 cm in the craniocaudal dimension. . Moderate to large volume ascites is present. No enlarged abdominal lymph nodes are seen. The visible portions of the esophagus, stomach, large and small bowel are normal without evidence of thickening or obstruction. The lung bases are clear. Bone windows demonstrate no suspicious lytic or blastic lesion. Degenerative changes are seen in the spine. Procedure Note Glo Uriarte MD - 12/24/2017 EXAMINATION: Computed tomography (CT) of the abdomen with contrast HISTORY: Z01.818: Pre-transplant evaluation for liver transplant E11.00: Type 2 diabetes mellitus with hyperosmolarity without coma, unspecified whether watermaster insulin use K70.9: Alcoholic liver disease B18.2: Chronic hepatitis C with hepatic coma TECHNIQUE: Multislice helical 2 and 5 mm axial images of the abdomenwere obtained in the arterial, venous, and delayed phases following the uneventful administration of 150 mL of Omnipaque 350 intravenouscontrast according to 3-phase liver protocol. Coronal reconstructions were performed. COMPARISON: No prior FINDINGS: There are no arterially enhancing observations in the liver. The liveris nodular with confluent fibrosis, compatible with cirrhosis. Gastric and perisplenic varices are seen. Esophageal and small gastric varices are present. No intrahepatic or extrahepatic biliary ductal dilatation is seen. The portal vein is patent. The hepatic vasculature is patent and the arterial anatomy is conventional. The gallbladder wall is mildly thickened with surrounding fluid. The pancreas and adrenal glands appear normal. The spleen is enlarged measuring 17 cm in the craniocaudal dimension. . Moderate to largevolume ascites is present. No enlarged abdominal lymph nodes are seen. The visible portions of the esophagus, stomach, large and small bowel are normal without evidence of thickening or obstruction. The lung bases are clear. Bone windows demonstrate no suspicious lyticor blastic lesion. Degenerative changes are seen in the spine. IMPRESSION: 1. No evidence of hepatocellular carcinoma. 2. Cirrhosis with sequelae of portal hypertension. Dictated by Jadyn Zapata MD (vice president financial). I, Dr. GLO URIARTE M.D. have personally reviewed and interpretedthis examination/study. This report was electronically signed by GLO URIARTE M.D. on 12/24/2017 4:25 PM . Дмитрий Chandler MD CT ORDERABLES * (ABNORMAL) URINALYSIS W/MICROSCOPIC NO CULTURE (12/24/2017 9:26 AM CDT) Color UA Yellow Straw, Yellow, Colorless, Light Yellow 12/24/2017 10:15 AM [facility] Clarity UA Hazy(A) Clear 12/24/2017 10:15 AM [facility] Specific [place] UA 1.014 1.001 - 1.030 12/24/2017 10:15 AM [facility] pH UA 5.5 5.0 - 8.0 12/24/2017 10:15 AM [facility] Protein UA Trace(A) <=20 mg/dL 12/24/2017 10:15 AM [facility] Glucose UA Negative Negative mg/dL 12/24/2017 10:15 AM [facility] Ketone UA Negative Negative mg/dL 12/24/2017 10:15 AM [facility] Bilirubin UA Negative Negative mg/dL 12/24/2017 10:15 AM CDT [facility] Blood UA Negative Negative 12/24/2017 10:15 AM CDT [facility] Nitrite UA Negative Negative 12/24/2017 10:15 AM CDT [facility] Leukocyte Esterase Moderate(A) Negative 12/24/2017 10:15 AM CDT [facility] Urobilinogen UA <2.0 <2.0 mg/dL 8 10:15 AM CDT [facility] RBC UA 2 0 - 8 /HPF 12/24/2017 10:15 AM CDT [facility] WBC UA 2 0 - 2 /HPF 12/24/2017 10:15 AM CDT [facility] Bacteria UA Rare Rare, Occasional, None /HPF 12/24/2017 10:15 AM CDT [facility] Squamous Epithelial Cells UA 9(H) 0 - 1 /HPF 12/24/2017 10:15 AM CDT [facility] Mucus UA Many(A) None /LPF 12/24/2017 10:15 AM T [facility] Yeast Budding UA Rare(A) None /HPF 12/25/19 18 10:15 AM T [facility] Hyaline Casts UA 1 0 - 2 /LPF 12/25/19 18 10:15 AM T [facility] Urine URINE SPECIMEN OBTAINED BY CLEAN CATCH PROCEDURE / Unknown Collection / Unknown 12/24/2017 9:26 AM CDT 12/24/2017 9:52 AM CDT Дмитрий Chandler MD LAB - URINALYSIS ORD ERABLES Performing Organization Address City/State/[facility] Co de Phone Number [address] [phone] * QUANTIFERON TB-GOLD INC (12/24/2017 9:20 AM CDT) QuantiFERON TB Gold Negative Negative 12/30/2017 11:11 PM CDT [facility] ([facility]) Comment: The specimen received for QuantiFERON testing was incubated by the ordering institution. Specific procedures outlined in our Directory of Services and in the package insert for the QuantiFERON Gold (In Tube) test must be followed to enable for proper stimulation of cells for the production of interferon gamma. QuantiFERON Criteria Comment 12/30/2017 11:11 PM CDT [facility] ([facility]) Comment: To be considered positive a specimen should have a TB Ag minus Nil value greater than or equal to 0.35 IU/mL and in addition the TB Ag minus Nil value must be greater than or equal to 25% of the Nil value. There may be insufficient information in these values to differentiate between some negative and some indeterminate test values. QuantiFERON TB Ag Value 0.02 IU/mL 12/30/2017 11:11 PM CDT [facility] ([facility]) QuantiFERON Nil Value 0.03 IU/mL 12/30/2017 11:11 PM CDT [facility] ([facility]) QuantiFERON Mitogen Value >10.00 IU/mL 12/30/2017 11:11 PM CDT [facility] ([facility]) QFT TB Ag Minus Nil Value IU/mL <0.00 IU/mL 12/30/2017 11:11 PM CDT [facility] ([facility]) Interpretation Comment 12/30/2017 11:11 PM CDT [facility] ([facility]) Comment: The QuantiFERON TB Gold (in Tube) assay is intended for use as an aid in the diagnosis of TB infection. Negative results suggest that there is no TB infection. In patients with high suspicion of exposure, a negative test should be repeated. A positive test indicates infection with Mycobacterium tuberculosis. Among individuals without tuberculosis infection, a positive test may be due to exposure to M. kansasii, M. szulgai or M. marinum. On the Internet, go to cdc.gov/tb for further details. Blood BLOOD SPECIMEN / Unknown Lab Venipuncture / Unknown 12/24/2017 9:20 AM CDT 12/24/2017 9:54 AM CDT Narrative [facility] ([facility]) - 12/30/2017 11:11 PM CDT Performed at: [address] [place] [address] [address] [place], [place] [id number] Personalized Living Manager: Jameson Durant PhD, Phone: [phone] Дмитрий Chandler MD LAB - SEROLOGY ORDER [facility] ([facility]) [address] [place] [address] * RPR (12/24/2017 9:20 AM CDT) [facility] RPR Non-reacti ve Non-reacti ve 12/24/2017 10:49 AM CDT [facility] Blood BLOOD SPECIMEN / Unknown Lab Venipuncture / Unknown 12/24/2017 9:20 AM CDT 12/24/2017 9:52 AM CDT Дмитрий Chandler MD LAB - CHEMISTRY BOY MOREL [facility] [address] [place] [address] * CYTOMEGALOVIRUS ANTIBODY IGG BLOOD (12/24/2017 9:20 AM CDT) [facility] Cytomegalovirus Antibody IgG <0.60 0.00 - 0.59 U/mL 12/26/2017 8:29 AM CDT [facility] ([facility]) Comment: Negative <0.60 Equivocal 0.60 - 0.69 Positive >0.69 Blood BLOOD SPECIMEN / Unknown Lab Venipuncture / Unknown 12/24/2017 9:20 AM CDT 12/24/2017 9:52 AM CDT Narrative [facility] ([facility]) - 12/26/2017 8:29 AM CDT Performed at: [address] [place] [address] [address] [place], [place] [id number] Personalized Living Manager: Jameson Durant PhD, Phone: [phone] Дмитрий Chandler MD LAB - CHEMISTRY [facility] ([facility]) [address] [place] [address] * RUBEOLA ANTIBODY IGG (12/24/2017 9:20 AM CDT) [facility] Measles (Rubeola) Antibody IgG >300.0 Immune >29.9 AU/mL 12/25/2017 4:15 PM CDT [facility] ([facility]) Comment: Negative <25.0 Equivocal 25.0 - 29.9 Positive >29.9 Presence of antibodies to Rubeola is presumptive evidence of immunity except when acute infection is suspected. Blood BLOOD SPECIMEN / Unknown Lab Venipuncture / Unknown 12/24/2017 9:20 AM CDT 12/24/2017 9:52 AM CDT [facility] ([facility]) - 12/25/2017 4:15 PM CDT Performed at: [address] [place] [id number] Personalized Living Manager: Jameson Durant PhD, Phone: [phone] Дмитрий Chandler MD LAB - CHEMISTRY BOY MOREL Performing Organization Address [facility] de Phone Number [facility] ([facility]) [address] [place] [phone], [place] * MUMPS ANTIBODY IGG (12/24/2017 9:20 AM CDT) Mumps Virus Antibody IgG Index >300.0 Immune >10.9 AU/mL 12/25/2017 4:15 PM CDT [facility]) Comment: Negative <9.0 Equivocal 9.0 - 10.9 Positive >10.9 A positive result generally indicates past exposure to Mumps virus or previous vaccination. Blood BLOOD SPECIMEN / Unknown Lab Venipuncture / Unknown 12/24/2017 9:20 AM CDT 12/24/2017 9:52 AM CDT [facility] ([facility]) - 12/25/2017 4:15 PM CDT Performed at: [address] [place] [id number] Personalized Living Manager: Jameson Durant PhD, Phone: [phone] Дмитрий Chandler MD LAB - CHEMISTRY BOY MOREL Performing Organization Address [facility] de Phone Number [facility] ([facility]) [address] [place] [phone], [place] * VARICELLA ZOSTER ANTIBODY IGG (12/24/2017 9:20 AM CDT) Varicella zoster Virus Antibody IgG 3106 Immune >165 index 12/25/2017 4:15 PM [facility]T [facility] ([facility]) Comment: Negative <135 Equivocal 135 - 165 Positive >165 A positive result generally indicates exposure to the pathogen or administration of specific immunoglobulins, but it is not indication of active infection or stage of disease. Blood BLOOD SPECIMEN / Unknown Lab Venipuncture / Unknown 12/24/2017 9:20 AM CDT 12/24/2017 9:54 AM CDT Narrative [facility] ([facility]) - 12/25/2017 4:15 PM CDT Performed at: [address] [place] [address] [address] [place], [place] [id number] Personalized Living Manager: Jameson Durant PhD, Phone: [phone] Дмитрий Chandler MD LAB - CHEMISTRY BOY MOREL Performing Organization Address City/[facility]/ZIP Co de Phone Number [facility]) [address] [place] [address] * TRANSFERRIN (12/24/2017 9:20 AM CDT) Pathologist [facility] Transferrin 200 174 - 382 mg/dL 12/24/2017 1:52 PM CDT [facility] Transferrin Saturation % 50 16 - 50 % 12/24/2017 1:52 PM CDT [facility] Blood BLOOD SPECIMEN / Unknown Lab Venipuncture / Unknown 12/24/2017 9:20 AM CDT 12/24/2017 9:54 AM CDT Дмитрий Chandler MD LAB - CHEMISTRY BOY MOREL [address] [phone] * (ABNORMAL) SUKHDEV-MARKS VIRUS ANTIBODY TO VCA IGG (12/24/2017 9:20 AM CDT) Sukhdev-Marks Virus Antibody IgG Viral Capsid Antigen 24.4(H) 0.0 - 21.9 U/mL 12/25/2017 10:54 PM CDT [facility] ([facility]) Comment: INTERPRETIVE INFORMATION: Sukhdev-Marks Virus Antibody to Viral Capsid Antigen, IgG 17.9 U/mL or less.......Not Detected 18.0-21.9 U/mL..........Indeterminate - Repeat testing in 10-14 days may be helpful. 22.0 U/mL or greater....Detected Interpretive information regarding serologic features of EBV-associated diseases is available at [email or web address]. Performed by [facility], [address] [place], [place] [id number] [email or web address], Franko Dominguez MD, Lab. Director Blood BLOOD SPECIMEN / Unknown Lab Venipuncture / Unknown 12/24/2017 9:20 AM CDT 12/24/2017 9:52 AM CDT Дмитрий Chandler MD LAB - CHEMISTRY BOY MOREL [facility] Organization Address City/State/ZIP Co de Phone Number [facility]) [address] [place] [address], [facility] * HEMOGLOBIN A1C (12/24/2017 9:20 AM CDT) Hemoglobin A1c 5.9 4.4 - 6.3 % 12/24/2017 11:48 AM CDT [facility] Estimated Average Glucose 123 mg/dL 12/24/2017 11:48 AM CDT [facility] Comment: HbA1c Interpretation: Treatment target values recommended by ADA and other clinical organizations should be used to evaluate metabolic control in patients. Treatment Target Values: Normal : < 5.7% Pre-diabetes: 5.7-6.4% Diabetes: Equal to or greater than 6.5% Reference: [place] [employer] Standards of Care in Diabetes -2014 In patients 70 years and older consider HbA1c target range of 7.0-7.5% Reference: Diabetes Mellitus in Older People: Position Statement on behalf of the International Association of Gerontology and Geriatrics (IAGG), the Diabetes Working Green Party for Older People (EDWPOP), and the International Task Force of Experts in Diabetes. Rashaad Peguero, et al. J [employer]. 2012 Test results diagnostic of diabetes should be repeated for confirmation. The Tosoh G8 assay for the measurement of HbA1c is a National Glycohemoglobin Standardization Program (NGSP)certified method. Results for patients with HbE disease should be interpreted with caution as this hemoglobinopathy has been shown to interfere with the Tosoh G8 assay. Whole Blood BLOOD SPECIMEN WITH EDTA / Unknown Lab Venipuncture / Unknown 12/24/2017 9:20 AM CDT 12/24/2017 9:52 AM CDT Дмитрий Chandler MD LAB - CHEMISTRY BOY MOREL Performing Organization Address City/[facility] Co de Phone Number [address] [phone] * ALPHA FETOPROTEIN BLOOD TUMOR (12/24/2017 9:20 AM CDT) Only the most recent of2 resultswithin the time period is included. Alpha-Fetoprote in Tumor Marker 2.510 <=8.300 ng/mL 12/24/2017 11:07 AM CDT [facility] Comment: AFP values will vary depending on testing procedure used. Results are not comparable across different methods. AFP values obtained in [facility] using a Sabrina Kam Immunoassay. Blood BLOOD SPECIMEN / Unknown Lab Venipuncture / Unknown 12/24/2017 9:20 AM CDT 12/24/2017 9:51 AM CDT Дмитрий Chandler MD LAB - CHEMISTRY BOY MOREL Performing Organization Address [facility] [place] [address], [facility] [phone] * BLOOD TYPE ABO+ RH PANEL (12/24/2017 9:20 AM CDT) ABO Rh A POS 12/24/2017 10:14 AM CDT [facility] Blood Bank BLOOD SPECIMEN / Unknown Lab Venipuncture / Unknown 12/24/2017 9:20 AM CDT 12/24/2017 9:27 AM CDT Дмитрий Chandler MD LAB - BLOOD BANK ORD ERAИВАН [facility] [address] * NICOTINE + METABOLITES BLOOD (12/24/2017 9:20 AM CDT) [facility] Nicotine None Detected ng/mL 01/01/2018 12:21 PM CDT [facility] ([facility]) Comment: Nicotine levels greater than 2.0 are consistent with the use of tobacco or tobacco cessation products. Cotinine None Detected ng/mL 01/01/2018 12:21 PM CDT [facility] ([facility]) Comment: Cotinine levels greater than 20.0 are consistent with the use of tobacco or tobacco cessation products. Blood BLOOD SPECIMEN / Unknown Lab Venipuncture / Unknown 12/24/2017 9:20 AM CDT 12/24/2017 9:52 AM CDT Narrative [facility] ([facility]) - 01/01/2018 12:21 PM CDT Performed at: [address] [place] [id number] Personalized Living Manager: Rickey Weber MD, Phone: [phone] Дмитрий Chandler MD LAB - CHEMISTRY BOY MOREL Performing Organization Address City/[facility]/ZIP Co de Phone Number [facility] ([facility]) [address] [place] [address] * IRON BLOOD (12/24/2017 9:20 AM CDT) [facility] Iron 124 40 - 150 mcg/dL 12/24/2017 1:52 PM CDT [facility] Blood BLOOD SPECIMEN / Unknown Lab Venipuncture / Unknown 12/24/2017 9:20 AM CDT 12/24/2017 9:54 AM CDT Дмитрий Chandler MD LAB - CHEMISTRY BOY MOREL [address] [phone] * ALCOHOL ETHYL BLOOD (12/24/2017 9:20 AM CDT) [facility] Interpretation Ethanol None Detected None Detected mg/dL 12/24/2017 10:35 AM [facility] Comment: Ethanol levels less than 10 mg/dL are resulted as None detected . Blood BLOOD SPECIMEN / Unknown Lab Venipuncture / Unknown 12/24/2017 9:20 AM CDT 12/24/2017 9:51 AM CDT Дмитрий Chandler MD LAB - CHEMISTRY BOY MOREL Performing Organization Address City/[facility]/ZIP Co de Phone Number [address] [phone] * FERRITIN (12/24/2017 9:20 AM CDT) Only the most recent of3 resultswithin the time period is included. Pathologist [facility] Ferritin 69 13 - 204 ng/mL 12/24/2017 2:12 PM [facility] Blood BLOOD SPECIMEN / Unknown Lab Venipuncture / Unknown 12/24/2017 9:20 AM CDT 12/24/2017 9:54 AM CDT Дмитрий Chandler MD LAB - CHEMISTRY BOY MOREL Performing Organization Address [facility] Co de Phone Number [address] [phone] * (ABNORMAL) LIPID PROFILE (12/24/2017 9:20 AM CDT) Cholesterol Total 112 <200 mg/dL 12/24/2017 10:35 AM [facility] HDL 34(L) >40 mg/dL 12/24/2017 10:35 AM [facility] Comment: ATP III Classification of HDL Cholesterol: <40 mg/dL: Considered a major risk factor. >60 mg/dL: Considered a negative risk factor. LDL Calculated 64 <100 mg/dL 12/24/2017 10:35 AM [facility] [facility] Comment: ATP III Classification of LDL Cholesterol: <100 mg/dL: Optimal 100 - 129 mg/dL: Near Optimal/Above Optimal 130 - 159 mg/dL: Borderline High 160 - 189 mg/dL: High >190 mg/dL: Very High Triglycerides 71 <150 mg/dL 12/24/2017 10:35 AM CDT [facility] Comment: ATP III Classification of Triglycerides: <150 mg/dL: Normal 150 - 199 mg/dL: Borderline High 200 - 400 mg/dL: High >500 mg/dL: Very High Blood BLOOD SPECIMEN / Unknown Lab Venipuncture / Unknown 12/24/2017 9:20 AM CDT 12/24/2017 9:51 AM CDT Дмитрий Chandler MD LAB - CHEMISTRY BOY MOREL [facility] [address] [phone] * XR PANOREX (12/24/2017 7:50 AM CDT) Anatomical Region Laterality Modality Head Radiographic Harmony ging 12/24/2017 9:59 AM CDT Impressions 12/24/2017 2:33 PM CDT IMPRESSION: No evidence of periapical abscess. Dictated by Sergey Kumari MD (Nut Former) I, Dr. GIOVANNI MADSEN have personally reviewed and interpreted this examination/study. This report was electronically signed by GIOVANNI MADSEN on 12/24/2017 2:33 PM . Narrative 12/24/2017 2:33 PM CDT EXAM: Panorex, single view HISTORY: Preliver transplant evaluation COMPARISON: No prior studies available for comparison. FINDINGS: Multiple teeth have been extracted and multiple dental restorations are noted. There is erosion of the first left mandibular molar. There is a questionable dental caries involving the right mandibular canine. Mild periodontal disease is present. No periapical lucency to suggest an abscess is present. The mandible and temporomandibular joints are intact. No lytic or blastic lesions are seen. Procedure Note Giovanni Madsen DO - 12/24/2017 EXAM: Panorex, single view HISTORY: Preliver transplant evaluation COMPARISON: No prior studies available for comparison. FINDINGS: Multiple teeth have been extracted and multiple dental restorations are noted. There is erosion of the first left mandibular molar. There is a questionable dental caries involving the right mandibular canine. Mild periodontal disease is present. No periapical lucency to suggest an abscess is present. The mandible and temporomandibular joints areintact. No lytic or blastic lesions are seen. IMPRESSION: No evidence of periapical abscess. Dictated by Sergey Kumari MD (Nut Former) Dr. GIOVANNI Hinton have personally reviewed and interpreted this examination/study. This report was electronically signed by GIOVANNI MADSEN on 12/24/2017 2:33 PM . Дмитрий Chandler MD DIAGNOSTIC IMAGING O RDERABLES * XR CHEST PA AND LATERAL (12/24/2017 7:50 AM CDT) Anatomical Region Laterality Modality Chest Radiographic Harmony ging 12/24/2017 10:0 4 AM CDT Impressions 12/24/2017 2:34 PM CDT Impression: No acute pulmonary process. This report has been dictated by Sergey Kumari M.D. (Resident). Dr. GIOVANNI Hinton have personally reviewed and interpreted this examination/study. This report was electronically signed by GIOVANNI MADSEN on 12/24/2017 2:34 PM . Narrative 12/24/2017 2:34 PM CDT Exam: XR CHEST 2VW. Date: 12/24/2017 7:50 AM. History: Preliver transplant evaluation. Comparison: No prior is available for comparison. Findings: There is no focal consolidation, pleural effusion or pneumothorax. The cardiomediastinal silhouette is normal. The visible bony thorax is intact. Degenerative changes are present in the thoracic spine. Procedure Note Giovanni Madsen DO - 12/24/2017 Exam: XR CHEST 2VW. Date: 12/24/2017 7:50 AM. History: Preliver transplant evaluation. Comparison: No prior is available for comparison. Findings: There is no focal consolidation, pleural effusion or pneumothorax. The cardiomediastinal silhouette is normal. The visible bony thorax isintact. Degenerative changes are present in the thoracic spine. Impression: No acute pulmonary process. This report has been dictated by Sergey Kumari M.D. (Resident). Dr. GIOVANNI Hinton have personally reviewed and interpreted this examination/study. This report was electronically signed by GIOVANNI MADSEN on 12/24/2017 2:34 PM . Дмитрий Chandler MD DIAGNOSTIC IMAGING O RDERABLES * LARGE VOLUME PARACENTESIS (12/23/2017 12:23 PM CDT) Report Endoscopy POC Endoscopy Department Report __ _ Patient Name: Domenica Rivera Procedure Date: 12/23/2017 12:23 PM Date of : 1970 Classification: Ambulatory Gender: Female __ _ Providers: Jory Bradley NP, Aleida Conn MD Referring MD: Procedure: Paracentesis (Repeat) Indications: Ascites, Ascites shown on ultrasound, Cirrhosis, Portal hypertension Medications: 1% Lidocaine 10 mL SubQ Description of Procedure: After obtaining informed consent, the procedure was performed. Throughout the procedure, the patient's blood pressure, pulse, and oxygen saturations were monitored continuously. The paracentesis was accomplished without difficulty. The patient tolerated the procedure well. Findings: The procedure site was sterilely prepped and draped in the usual fashion. 1% lidocaine with epinephrine was infiltrated into the skin and subcutaneous tissues. Using a left lower quadrant approach, the paracentesis needle was inserted into the peritoneal cavity under ultrasound guidance. Aspiration demonstrated no blood and good return of peritoneal fluid. One pass was made. 6.5 liters of clear, blood-tinged fluid was withdrawn using a vacuum bottle. Fluid was sent for cell count and differential and culture and sensitivities. when the proedure was completed the catheter was removed intact and the wound was closed with exofin and tegaderm was applied 150 mL of 25% Albumin was administered during the course of the procedure to treat the patient for prophylactically for potential hypotension. Estimated Blood Loss: Estimated blood loss: none. Complications: No immediate complications. Impression: - Paracentesis successfully performed. Recommendation: - Discharge patient to home (ambulatory). - Low sodium diet indefinitely. - Return to GI clinic as previously scheduled. Attending Participation: I was present for the dolan portions of this procedure and either I or my colleague was immediately available for all non-dolan portions of the procedure. Procedure Code(s): --- Professional --- 61141, Abdominal paracentesis (diagnostic or therapeutic); with imaging guidance Diagnosis Code(s): --- Professional --- R18.8, Other ascites K74.60, Unspecified cirrhosis of liver K76.6, Portal hypertension CPT copyright 2016 [employer]. All rights reserved. The codes documented in this report are preliminary and upon aligner typewriter review may be revised to meet current compliance requirements. Jory Bradley APN ____ Jory Bradley NP 12/23/2017 12:32:08 PM This report has been signed electronically. ____ Aleida Conn MD Note Initiated On: 12/23/2017 12:23 PM Number of Addenda: [address] [address] [facility] 12/23/2017 12:2 3 PM CDT Jory Bradley INSTRUCTIONAL SUPERVISOR-DB2 DEVELOPER GI PROCEDURE ORDERABLES [facility] * LARGE VOLUME PARACENTESIS (12/17/2017 1:03 PM CDT) Report Endoscopy POC Endoscopy Department Report __ _ Patient Name: Domenica Rivera Procedure Date: 12/17/2017 1:03 PM Date of : 1970 Classification: Outpatient Gender: Female __ _ Providers: Marla Soto PA-C, Israel Sparrow MD Referring MD: Procedure: Paracentesis (Repeat) Indications: Ascites, Ascites shown on ultrasound, Diagnostic to rule out peritonitis, Cirrhosis, Cirrhosis (Alcoholic), Portal hypertension Medications: 1% Lidocaine 10 mL SubQ Description of Procedure: After obtaining informed consent, the procedure was performed. Throughout the procedure, the patient's blood pressure, pulse, and oxygen saturations were monitored continuously. The paracentesis was accomplished without difficulty. The patient tolerated the procedure well. Findings: Prior to the procedure, the abdomen was examined and demonstrated significant distention with ascites and a fluid wave to be present. With the patient in a supine with head elevated position, the procedure site was sterilely prepped using chloroprep and draped in the usual fashion. 10 mL of 1% lidocaine was infiltrated into the skin and subcutaneous tissues. Using a left lower quadrant approach, a small stab incision was made with a disposable blade and a 5 inch 12 gauge paracentesis needle and cannula system was inserted into the peritoneal cavity under ultrasound guidance. Aspiration demonstrated no blood and good return of peritoneal fluid. One pass was made. The trocar was then removed leaving the catheter in place. 8.3 liters of clear, yellow fluid was withdrawn using a vacuum bottle. Fluid was sent for cell count and differential and culture and sensitivities. Tegaderm were applied. The incision site was closed with exofin. 200 mL of 25% Albumin was administered during the course of the procedure to treat the patient for prophylactically for potential hypotension. Estimated Blood Loss: Estimated blood loss: none. Complications: No immediate complications. Impression: - Paracentesis successfully performed. - Test results pending. Recommendation: - Discharge patient to home (ambulatory). - Return to liver clinic as previously scheduled. - Repeat paracentesis PRN for therapeutic purposes. Attending Participation: I was present for the dolan portions of this procedure and either I or my colleague was immediately available for all non-dolan portions of the procedure. Procedure Code(s): --- Professional --- 70303, Abdominal paracentesis (diagnostic or therapeutic); with imaging guidance Diagnosis Code(s): --- Professional --- K70.31, Alcoholic cirrhosis of liver with ascites R18.8, Other ascites K74.60, Unspecified cirrhosis of liver K76.6, Portal hypertension CPT copyright 2016 [employer]. All rights reserved. The codes documented in this report are preliminary and upon aligner typewriter review may be revised to meet current compliance requirements. Marla Soto PA-C 12/17/2017 1:06:44 PM This report has been signed electronically. Israel Sparrow MD Note Initiated On: 12/17/2017 1:03 PM Number of Addenda: 0 [facility] [address] [facility] [place] [address] [facility] 12/17/2017 1:03 PM CDT Marla Soto PA-C GI PROCEDURE OR DERABLES [facility] * LARGE VOLUME PARACENTESIS (12/10/2017 12:30 PM CDT) Report Endoscopy POC Endoscopy Department Report __ _ Patient Name: Domenica Rivera Procedure Date: 12/10/2017 12:30 PM Date of : 1970 Classification: Outpatient Gender: Female __ _ Providers: Marla Soto PA-C, Israel Sparrow MD Referring MD: Procedure: Paracentesis (Repeat) Indications: Ascites, Ascites shown on ultrasound, Diagnostic to rule out peritonitis, Cirrhosis, Cirrhosis (Alcoholic), Portal hypertension, Renal disease Medications: 1% Lidocaine 20 mL SubQ Description of Procedure: After obtaining informed consent, the procedure was performed. Throughout the procedure, the patient's blood pressure, pulse, and oxygen saturations were monitored continuously.The paracentesis was accomplished without difficulty. The patient tolerated the procedure well. Findings: Prior to the procedure, the abdomen was examined and demonstrated moderate distention with ascites and a fluid wave to be present. With the patient in a supine with head elevated position, the procedure site was sterilely prepped using chloroprep and draped in the usual fashion. 20 mL of 1% lidocaine was infiltrated into the skin and subcutaneous tissues. Using a left lower quadrant approach, a small stab incision was made with a disposable blade and a 5 inch 12 gauge paracentesis needle and cannula system was inserted into the peritoneal cavity under ultrasound guidance. Aspiration demonstrated no blood and good return of peritoneal fluid. One pass was made. The trocar was then removed leaving the catheter in place. 6.8 liters of clear, yellow fluid was withdrawn using a vacuum bottle. Fluid was sent for cell count and differential and culture and sensitivities. The incision site was closed with exofin. Tegaderm were applied. 200 mL of 25% Albumin was administered during the course of the procedure to treat the patient for prophylactically for potential hypotension. Estimated Blood Loss: Estimated blood loss: none. Complications: No immediate complications. Impression: - Paracentesis successfully performed. - Test results pending. Recommendation: - Discharge patient to home (ambulatory). - Return to liver clinic as previously scheduled. - Repeat paracentesis PRN for therapeutic purposes. Attending Participation: I was present for the dolan portions of this procedure and either I or my colleague was immediately available for all non-dolan portions of the procedure. Procedure Code(s): --- Professional --- 25834, Abdominal paracentesis (diagnostic or therapeutic); with imaging guidance Diagnosis Code(s): --- Professional --- K70.31, Alcoholic cirrhosis of liver with ascites R18.8, Other ascites K74.60, Unspecified cirrhosis of liver K76.6, Portal hypertension N28.9, Disorder of kidney and ureter, unspecified CPT copyright 2016 [employer]. All rights reserved. The codes documented in this report are preliminary and upon aligner typewriter review may be revised to meet current compliance requirements. Marla Soto PA-C 12/10/2017 3:50:01 PM This report has been signed electronically. Israel Sparrow MD Note Initiated On: 12/10/2017 12:30 PM Number of Addenda: 0 [facility] [address] [facility] [place] [address] [facility] 12/10/2017 12:3 0 PM CDT Marla Soto PA-C GI PROCEDURE OR DERABLES [facility] * LARGE VOLUME PARACENTESIS (12/03/2017 11:32 AM CDT) Report Endoscopy POC Endoscopy Department Report __ _ Patient Name: Domenica Rivera Procedure Date: 12/03/2017 11:32 AM Date of : 1970 Classification: Outpatient Gender: Female __ _ Providers: Marla Soto PA-C, Israel Sparrow MD Referring MD: Procedure: Paracentesis (Repeat) Indications: Ascites, Ascites shown on ultrasound, Diagnostic to rule out peritonitis, Cirrhosis, Cirrhosis (Alcoholic), Portal hypertension, Renal disease Medications: 1% Lidocaine 10 mL SubQ Description of Procedure: After obtaining informed consent, the procedure was performed. Throughout the procedure, the patient's blood pressure, pulse, and oxygen saturations were monitored continuously.The paracentesis was accomplished without difficulty. The patient tolerated the procedure well. Findings: Prior to the procedure, the abdomen was examined and demonstrated significant distention with ascites and a fluid wave to be present. With the patient in a supine with head elevated position, the procedure site was sterilely prepped using chloroprep and draped in the usual fashion. 10 mL of 1% lidocaine was infiltrated into the skin and subcutaneous tissues. Using a left lower quadrant approach, a small stab incision was made with a disposable blade and a 5 inch 12 gauge paracentesis needle and cannula system was inserted into the peritoneal cavity under ultrasound guidance. Aspiration demonstrated no blood and good return of peritoneal fluid. One pass was made. The trocar was then removed leaving the catheter in place. 9 liters of clear, yellow fluid was withdrawn using a vacuum bottle. Fluid was sent for cell count and differential and culture and sensitivities. The incision site was closed with exofin. Tegaderm were applied. 250 mL of 25% Albumin was administered during the course of the procedure to treat the patient for prophylactically for potential hypotension. Estimated Blood Loss: Estimated blood loss: none. Complications: No immediate complications. Impression: - Paracentesis successfully performed. - Test results pending. Recommendation: - Discharge patient to home (ambulatory). - Return to liver clinic as previously scheduled. - Repeat paracentesis PRN for therapeutic purposes. Attending Participation: I was present for the dolan portions of this procedure and either I or my colleague was immediately available for all non-dolan portions of the procedure. Procedure Code(s): --- Professional --- 69320, Abdominal paracentesis (diagnostic or therapeutic); with imaging guidance Diagnosis Code(s): --- Professional --- K70.31, Alcoholic cirrhosis of liver with ascites R18.8, Other ascites K74.60, Unspecified cirrhosis of liver K76.6, Portal hypertension N28.9, Disorder of kidney and ureter, unspecified CPT copyright 2016 [employer]. All rights reserved. The codes documented in this report are preliminary and upon aligner typewriter review may be revised to meet current compliance requirements. Marla Soto PA-C 12/03/2017 2:41:12 PM This report has been signed electronically. Israel Sparrow MD Note Initiated On: 12/03/2017 11:32 AM Number of Addenda: 0 [facility] [address] [place] [address] [facility] 12/03/2017 11:3 2 AM CDT Marla Soto PA-C GI PROCEDURE OR DERABLES [facility] * LARGE VOLUME PARACENTESIS (11/26/2017 1:37 PM CDT) Report Endoscopy POC Endoscopy Department Report __ _ Patient Name: Domenica Rivera Procedure Date: 11/26/2017 1:37 PM Date of : 1970 Classification: Outpatient Gender: Female __ _ Providers: Marla Soto PA-C, Kellee Cox Referring MD: Procedure: Paracentesis (Repeat) Indications: Ascites, Ascites shown on ultrasound, Diagnostic to rule out peritonitis, Cirrhosis, Cirrhosis (Alcoholic), Portal hypertension, Renal disease Medications: 1% Lidocaine 20 mL SubQ Description of Procedure: After obtaining informed consent, the procedure was performed. Throughout the procedure, the patient's blood pressure, pulse, and oxygen saturations were monitored continuously. The paracentesis was accomplished without difficulty. The patient tolerated the procedure well. Findings: Prior to the procedure, the abdomen was examined and demonstrated moderate distention with ascites and a fluid wave to be present. With the patient in a supine with head elevated position, the procedure site was sterilely prepped using chloroprep and draped in the usual fashion. 20 mL of 1% lidocaine was infiltrated into the skin and subcutaneous tissues. Using a left lower quadrant approach, a small stab incision was made with a disposable blade and a 5 inch 12 gauge paracentesis needle and cannula system was inserted into the peritoneal cavity under ultrasound guidance. Aspiration demonstrated no blood and good return of peritoneal fluid. One pass was made. The trocar was then removed leaving the catheter in place. 7 liters of clear, yellow fluid was withdrawn using a vacuum bottle. Fluid was sent for cell count and differential and culture and sensitivities. The incision site was closed with exofin. Tegaderm were applied. 200 mL of 25% Albumin was administered during the course of the procedure to treat the patient for underlying renal failure and for prophylactically for potential hypotension. Estimated Blood Loss: Estimated blood loss: none. Complications: No immediate complications. Impression: - Paracentesis successfully performed. - Test results pending. Recommendation: - Discharge patient to home (ambulatory). - Return to liver clinic as previously scheduled. - Repeat paracentesis PRN for therapeutic purposes. Attending Participation: I was present for the dolan portions of this procedure and either I or my colleague was immediately available for all non-dolan portions of the procedure. Procedure Code(s): --- Professional --- 52880, Abdominal paracentesis (diagnostic or therapeutic); with imaging guidance Diagnosis Code(s): --- Professional --- K70.31, Alcoholic cirrhosis of liver with ascites R18.8, Other ascites K74.60, Unspecified cirrhosis of liver K76.6, Portal hypertension N28.9, Disorder of kidney and ureter, unspecified CPT copyright 2016 [employer]. All rights reserved. The codes documented in this report are preliminary and upon aligner typewriter review may be revised to meet current compliance requirements. Marla Soto PA-C 11/26/2017 1:45:23 PM This report has been signed electronically. Kellee Cox, Bandar Initiated On: 11/26/2017 1:37 PM Number of Addenda: 0 [facility] [address] [place] [address] [facility] 11/26/2017 1:37 PM CDT Marla Soto PA-C GI PROCEDURE OR DERABLES [facility] * LARGE VOLUME PARACENTESIS (11/19/2017 1:34 PM CDT) Report Endoscopy POC Endoscopy Department Report __ _ Patient Name: Domenica Rivera Procedure Date: 11/19/2017 1:34 PM Date of : 1970 Classification: Outpatient Gender: Female __ _ Providers: Marla Soto PA-C, María Elena Núñez MD Referring MD: Procedure: Paracentesis (Repeat) Indications: Ascites, Ascites shown on abdominal X-ray, Ascites shown on ultrasound, Diagnostic to rule out peritonitis, Cirrhosis, Cirrhosis (Alcoholic), Portal hypertension, Renal disease Medications: 1% Lidocaine 20 mL SubQ Description of Procedure: After obtaining informed consent, the procedure was performed. Throughout the procedure, the patient's blood pressure, pulse, and oxygen saturations were monitored continuously. The paracentesis was accomplished without difficulty. The patient tolerated the procedure well. Findings: Prior to the procedure, the abdomen was examined and demonstrated moderate distention with ascites and a fluid wave to be present. With the patient in a supine with head elevated position, the procedure site was sterilely prepped using chloroprep and draped in the usual fashion. 20 mL of 1% lidocaine was infiltrated into the skin and subcutaneous tissues. Using a left lower quadrant approach, a small stab incision was made with a disposable blade and a 5 inch 12 gauge paracentesis needle and cannula system was inserted into the peritoneal cavity under ultrasound guidance. Aspiration demonstrated no blood and good return of peritoneal fluid. One pass was made. The trocar was then removed leaving the catheter in place. 6 liters of clear, yellow fluid was withdrawn using a vacuum bottle. Fluid was sent for cell count and differential and culture and sensitivities. The incision site was closed with exofin. Tegaderm were applied. 150 mL of 25% Albumin was administered during the course of the procedure to treat the patient for prophylactically for potential hypotension. Estimated Blood Loss: Estimated blood loss: none. Complications: No immediate complications. Impression: - Paracentesis successfully performed. - Test results pending. Recommendation: - Discharge patient to home (ambulatory). - Return to liver clinic as previously scheduled. - Repeat paracentesis PRN for therapeutic purposes. Attending Participation: I was present for the dolan portions of this procedure and either I or my colleague was immediately available for all non-dolan portions of the procedure. Procedure Code(s): --- Professional --- 48746, Abdominal paracentesis (diagnostic or therapeutic); with imaging guidance Diagnosis Code(s): --- Professional --- K70.31, Alcoholic cirrhosis of liver with ascites R18.8, Other ascites K74.60, Unspecified cirrhosis of liver K76.6, Portal hypertension N28.9, Disorder of kidney and ureter, unspecified CPT copyright 2016 [employer]. All rights reserved. The codes documented in this report are preliminary and upon aligner typewriter review may be revised to meet current compliance requirements. Marla Soto PA-C 11/19/2017 1:39:58 PM This report has been signed electronically. ___ María Elena Núñez MD Note Initiated On: 11/19/2017 1:34 PM Number of Addenda: 0 [facility] [address] [place] [id number] [facility] 11/19/2017 1:34 PM CDT Marla Soto PA-C GI PROCEDURE OR DERABLES [facility] * LARGE VOLUME PARACENTESIS (11/12/2017 1:36 PM CDT) Report Endoscopy POC Endoscopy Department Report _ Patient Name: Domenica Rivera Procedure Date: 11/12/2017 1:36 PM Date of : 1970 Classification: Outpatient Gender: Female _ Providers: Marla Soto PA-C, Israel Sparrow MD Referring MD: Procedure: Paracentesis (Repeat) Indications: Ascites, Ascites shown on ultrasound, Diagnostic to rule out peritonitis, Cirrhosis, Cirrhosis (Alcoholic), Portal hypertension, Renal disease Medications: 1% Lidocaine 20 mL SubQ Description of Procedure: After obtaining informed consent, the procedure was performed. Throughout the procedure, the patient's blood pressure, pulse, and oxygen saturations were monitored continuously. The paracentesis was accomplished without difficulty. The patient tolerated the procedure well. Findings: Prior to the procedure, the abdomen was examined and demonstrated moderate distention with ascites and a fluid wave to be present. With the patient in a supine with head elevated position, the procedure site was sterilely prepped using chloroprep and draped in the usual fashion. 20 mL of 1% lidocaine was infiltrated into the skin and subcutaneous tissues. Using a left lower quadrant approach, a small stab incision was made with a disposable blade and a 5 inch 12 gauge paracentesis needle and cannula system was inserted into the peritoneal cavity under ultrasound guidance. Aspiration demonstrated no blood and good return of peritoneal fluid. One pass was made. The trocar was then removed leaving the catheter in place. 2 liter of clear, yellow fluid was withdrawn using a vacuum bottle. Fluid was sent for cell count and differential and culture and sensitivities. The incision site was closed with exofin. Tegaderm were applied. Estimated Blood Loss: Estimated blood loss: none. Complications: No immediate complications. Impression: - Paracentesis successfully performed. - Test results pending. Recommendation: - Discharge patient to home (ambulatory). - Return to liver clinic as previously scheduled. - Repeat paracentesis PRN for therapeutic purposes. Attending Participation: I was present for the dolan portions of this procedure and either I or my colleague was immediately available for all non-dolan portions of the procedure. Procedure Code(s): --- Professional --- 10490, Abdominal paracentesis (diagnostic or therapeutic); with imaging guidance Diagnosis Code(s): --- Professional --- K70.31, Alcoholic cirrhosis of liver with ascites R18.8, Other ascites K74.60, Unspecified cirrhosis of liver K76.6, Portal hypertension N28.9, Disorder of kidney and ureter, unspecified CPT copyright 2016 [employer]. All rights reserved. The codes documented in this report are preliminary and upon aligner typewriter review may be revised to meet current compliance requirements. Marla Soto PA-C 11/12/2017 1:40:37 PM This report has been signed electronically. _ Israel Sparrow MD Note Initiated On: 11/12/2017 1:36 PM Number of Addenda: 0 [facility] [address] [place] [address] [facility] 11/12/2017 1:36 PM CDT Marla Soto PA-C GI PROCEDURE OR DERABLES [facility] * LARGE VOLUME PARACENTESIS (11/05/2017 11:40 AM CDT) Report Endoscopy POC Endoscopy Department Report _ Patient Name: Domenica Rivera Procedure Date: 11/05/2017 11:40 AM Date of : 1970 Classification: Outpatient Gender: Female _ Providers: Marla Soto PA-C, Jorge Alberto Ash MD Referring MD: Procedure: Paracentesis (Repeat) Indications: Ascites, Ascites shown on ultrasound, Diagnostic to rule out peritonitis, Cirrhosis, Cirrhosis (Alcoholic), Portal hypertension, Renal disease Medications: 1% Lidocaine 20 mL SubQ Description of Procedure: After obtaining informed consent, the procedure was performed. Throughout the procedure, the patient's blood pressure, pulse, and oxygen saturations were monitored continuously.The paracentesis was accomplished without difficulty. The patient tolerated the procedure well. Findings: Prior to the procedure, the abdomen was examined and demonstrated moderate distention with ascites and a fluid wave to be present. With the patient in a supine with head elevated position, the procedure site was sterilely prepped using chloroprep and draped in the usual fashion. 20 mL of 1% lidocaine was infiltrated into the skin and subcutaneous tissues. Using a left lower quadrant approach, a small stab incision was made with a disposable blade and a 5 inch 12 gauge paracentesis needle and cannula system was inserted into the peritoneal cavity under ultrasound guidance. Aspiration demonstrated no blood and good return of peritoneal fluid. One pass was made. The trocar was then removed leaving the catheter in place. 4 liters of clear, yellow fluid was withdrawn using a vacuum bottle. Fluid was sent for cell count and differential and culture and sensitivities. The incision site was closed with exofin. Tegaderm were applied. Estimated Blood Loss: Estimated blood loss: none. Complications: No immediate complications. Impression: - Paracentesis successfully performed. - Test results pending. Recommendation: - Discharge patient to home (ambulatory). - Return to liver clinic as previously scheduled. - Repeat paracentesis PRN for therapeutic purposes. Attending Participation: I was present for the dolan portions of this procedure and either I or my colleague was immediately available for all non-dolan portions of the procedure. Procedure Code(s): --- Professional --- 26144, Abdominal paracentesis (diagnostic or therapeutic); with imaging guidance Diagnosis Code(s): --- Professional --- K70.31, Alcoholic cirrhosis of liver with ascites R18.8, Other ascites K74.60, Unspecified cirrhosis of liver K76.6, Portal hypertension N28.9, Disorder of kidney and ureter, unspecified CPT copyright 2016 [employer]. All rights reserved. The codes documented in this report are preliminary and upon aligner typewriter review may be revised to meet current compliance requirements. Marla Soto PA-C 11/05/2017 4:05:47 PM This report has been signed electronically. __ Jorge Alberto Ash MD Note Initiated On: 11/05/2017 11:40 AM Number of Addenda: 0 [facility] [address] [facility] [place], [place] [id number] [place] [address] [facility] 11/05/2017 11:4 0 AM CDT Marla Soto PA-C GI PROCEDURE OR DERABLES [facility] * LARGE VOLUME PARACENTESIS (10/29/2017 11:51 AM CDT) Report Endoscopy POC Endoscopy Department Report __ _ Patient Name: Domenica Rivera Procedure Date: 10/29/2017 11:51 AM Date of : 1970 Classification: Outpatient Gender: Female __ _ Providers: Marla Soto PA-C, Israel Sparrow MD Referring MD: Procedure: Paracentesis (Repeat) Indications: Ascites, Ascites shown on ultrasound, Diagnostic to rule out peritonitis, Cirrhosis, Cirrhosis (Alcoholic), Portal hypertension, Renal disease Medications: 1% Lidocaine 20 mL SubQ Description of Procedure: After obtaining informed consent, the procedure was performed. Throughout the procedure, the patient's blood pressure, pulse, and oxygen saturations were monitored continuously. The paracentesis was accomplished without difficulty. The patient tolerated the procedure well. Findings: Prior to the procedure, the abdomen was examined and demonstrated significant distention with ascites and a fluid wave to be present. With the patient in a supine with head elevated position, the procedure site was sterilely prepped using chloroprep and draped in the usual fashion. 20 mL of 1% lidocaine was infiltrated into the skin and subcutaneous tissues. Using a left lower quadrant approach, a small stab incision was made with a disposable blade and a 5 inch 12 gauge paracentesis needle and cannula system was inserted into the peritoneal cavity under ultrasound guidance. Aspiration demonstrated no blood and good return of peritoneal fluid. One pass was made. The trocar was then removed leaving the catheter in place. 8.5 liters of clear, yellow fluid was withdrawn using a vacuum bottle. Fluid was sent for cell count and differential and culture and sensitivities. The incision site was closed with exofin. Tegaderm were applied. 250 mL of 25% Albumin was administered during the course of the procedure to treat the patient for underlying renal failure and for prophylactically for potential hypotension. Estimated Blood Loss: Estimated blood loss: none. Complications: No immediate complications. Impression: - Paracentesis successfully performed. - Test results pending. Recommendation: - Discharge patient to home (ambulatory). - Return to liver clinic as previously scheduled. - Repeat paracentesis PRN for therapeutic purposes. Attending Participation: I was present for the dolan portions of this procedure and either I or my colleague was immediately available for all non-dolan portions of the procedure. Procedure Code(s): --- Professional --- 27220, Abdominal paracentesis (diagnostic or therapeutic); with imaging guidance Diagnosis Code(s): --- Professional --- K70.31, Alcoholic cirrhosis of liver with ascites R18.8, Other ascites K74.60, Unspecified cirrhosis of liver N28.9, Disorder of kidney and ureter, unspecified K76.6, Portal hypertension CPT copyright 2016 [employer]. All rights reserved. The codes documented in this report are preliminary and upon aligner typewriter review may be revised to meet current compliance requirements. Marla Soto PA-C 10/29/2017 11:59:04 AM This report has been signed electronically. Israel Sparrow MD Note Initiated On: 10/29/2017 11:51 AM Number of Addenda: 0 [facility] [address] [facility] [place] [address] [facility] 10/29/2017 11:5 1 AM CDT Marla Soto PA-C GI PROCEDURE OR DERABLES [facility] * LARGE VOLUME PARACENTESIS (10/22/2017 1:24 PM CDT) Report Endoscopy POC Endoscopy Department Report __ _ Patient Name: Domenica Rivera Procedure Date: 10/22/2017 1:24 PM Date of : 1970 Classification: Outpatient Gender: Female __ _ Providers: Marla Soto PA-C, Kellee Lind MD: Procedure: Paracentesis (Repeat) Indications: Ascites, Ascites shown on ultrasound, Diagnostic to rule out peritonitis, Cirrhosis, Cirrhosis (Alcoholic), Portal hypertension, Renal disease Medications: 1% Lidocaine 20 mL SubQ Description of Procedure: After obtaining informed consent, the procedure was performed. Throughout the procedure, the patient's blood pressure, pulse, and oxygen saturations were monitored continuously.The paracentesis was accomplished without difficulty. The patient tolerated the procedure well. Findings: Prior to the procedure, the abdomen was examined and demonstrated moderate distention with ascites and significant distention with ascites. With the patient in a supine with head elevated position, the procedure site was sterilely prepped using chloroprep and draped in the usual fashion. 20 mL of 1% lidocaine was infiltrated into the skin and subcutaneous tissues. Using a left lower quadrant approach, a small stab incision was made with a disposable blade and a 5 inch 12 gauge paracentesis needle and cannula system was inserted into the peritoneal cavity under ultrasound guidance. Aspiration demonstrated no blood and good return of peritoneal fluid. One pass was made. The trocar was then removed leaving the catheter in place. 7.5 liters of clear, yellow fluid was withdrawn using a vacuum bottle. Fluid was sent for cell count and differential and culture and sensitivities. The incision site was closed with exofin. Tegaderm were applied. 200 mL of 25% Albumin was administered during the course of the procedure to treat the patient for prophylactically for potential hypotension. Estimated Blood Loss: Estimated blood loss: none. Complications: No immediate complications. Impression: - Paracentesis successfully performed. - Test results pending. Recommendation: - Discharge patient to home (ambulatory). - Return to liver clinic as previously scheduled. - Repeat paracentesis PRN for therapeutic purposes. Attending Participation: I was present for the dolan portions of this procedure and either I or my colleague was immediately available for all non-dolan portions of the procedure. Procedure Code(s): --- Professional --- 08524, Abdominal paracentesis (diagnostic or therapeutic); with imaging guidance Diagnosis Code(s): --- Professional --- K70.31, Alcoholic cirrhosis of liver with ascites R18.8, Other ascites K74.60, Unspecified cirrhosis of liver K76.6, Portal hypertension N28.9, Disorder of kidney and ureter, unspecified CPT copyright 2016 [employer]. All rights reserved. The codes documented in this report are preliminary and upon aligner typewriter review may be revised to meet current compliance requirements. Marla Soto PA-C 10/22/2017 3:45:05 PM This report has been signed electronically. Kellee Cox, Note Initiated On: 10/22/2017 1:24 PM Number of Addenda: 0 [facility] [address] [place] [address] [facility] 10/22/2017 1:24 PM CDT Marla Soto PA-C GI PROCEDURE OR DERABLES [facility] * LARGE VOLUME PARACENTESIS (10/12/2017 1:26 PM CDT) Report Endoscopy POC Endoscopy Department Report __ _ Patient Name: Domenica Rivera Procedure Date: 10/12/2017 1:26 PM Date of : 1970 Classification: Outpatient Gender: Female __ _ Providers: Marla Soto PA-C, Israel Sparrow MD Referring MD: Procedure: Paracentesis (Repeat) Indications: Ascites, Ascites shown on ultrasound, Diagnostic to rule out peritonitis, Cirrhosis, Cirrhosis (Alcoholic), Portal hypertension, Renal disease Medications: 1% Lidocaine 10 mL SubQ Description of Procedure: After obtaining informed consent, the procedure was performed. Throughout the procedure, the patient's blood pressure, pulse, and oxygen saturations were monitored continuously. The paracentesis was accomplished without difficulty. The patient tolerated the procedure well. Findings: Prior to the procedure, the abdomen was examined and demonstrated significant distention with ascites and a fluid wave to be present. With the patient in a supine with head elevated position, the procedure site was sterilely prepped using chloroprep and draped in the usual fashion. 10 mL of 1% lidocaine was infiltrated into the skin and subcutaneous tissues. Using a left lower quadrant approach, a small stab incision was made with a disposable blade and a 5 inch 12 gauge paracentesis needle and cannula system was inserted into the peritoneal cavity under ultrasound guidance. Aspiration demonstrated no blood and good return of peritoneal fluid. One pass was made. The trocar was then removed leaving the catheter in place. 9 liters of clear, yellow fluid was withdrawn using a vacuum bottle. Fluid was sent for cell count and differential and culture and sensitivities. The incision site was closed with exofin. Tegaderm were applied. 250 mL of 25% Albumin was administered during the course of the procedure to treat the patient for prophylactically for potential hypotension. Estimated Blood Loss: Estimated blood loss: none. Complications: No immediate complications. Impression: - Paracentesis successfully performed. - Test results pending. Recommendation: - Discharge patient to home (ambulatory). - Return to liver clinic as previously scheduled. - Repeat paracentesis PRN for therapeutic purposes. Attending Participation: I was present for the dolan portions of this procedure and either I or my colleague was immediately available for all non-dolan portions of the procedure. Procedure Code(s): --- Professional --- 13583, Abdominal paracentesis (diagnostic or therapeutic); with imaging guidance Diagnosis Code(s): --- Professional --- K70.31, Alcoholic cirrhosis of liver with ascites R18.8, Other ascites K74.60, Unspecified cirrhosis of liver K76.6, Portal hypertension N28.9, Disorder of kidney and ureter, unspecified CPT copyright 2016 [employer]. All rights reserved. The codes documented in this report are preliminary and upon aligner typewriter review may be revised to meet current compliance requirements. Marla Soto PA-C 10/12/2017 1:30:09 PM This report has been signed electronically. Israel Sparrow MD Note Initiated On: 10/12/2017 1:26 PM Number of Addenda: 0 [facility] [address] [facility] [place] [address] [facility] 10/12/2017 1:26 PM CDT Marla Soto PA-C GI PROCEDURE OR DERABLES [facility] * LARGE VOLUME PARACENTESIS (10/01/2017 1:29 PM CDT) Report Endoscopy POC Endoscopy Department Report __ _ Patient Name: Domenica Rivera Procedure Date: 10/01/2017 1:29 PM Date of : 1970 Classification: Outpatient Gender: Female __ _ Providers: Marla Soto PA-C, Israel Sparrow MD Referring MD: Procedure: Paracentesis (Repeat) Indications: Ascites, Ascites shown on ultrasound, Diagnostic to rule out peritonitis, Cirrhosis, Cirrhosis (Alcoholic), Portal hypertension Medications: 1% Lidocaine 10 mL SubQ Description of Procedure: After obtaining informed consent, the procedure was performed. Throughout the procedure, the patient's blood pressure, pulse, and oxygen saturations were monitored continuously.The paracentesis was accomplished without difficulty. The patient tolerated the procedure well. Findings: Prior to the procedure, the abdomen was examined and demonstrated significant distention with ascites and a fluid wave to be present. With the patient in a supine with head elevated position, the procedure site was sterilely prepped using chloroprep and draped in the usual fashion. 10 mL of 1% lidocaine was infiltrated into the skin and subcutaneous tissues. Using a left lower quadrant approach, a small stab incision was made with a disposable blade and a 5 inch 12 gauge paracentesis needle and cannula system was inserted into the peritoneal cavity under ultrasound guidance. Aspiration demonstrated no blood and good return of peritoneal fluid. One pass was made. The trocar was then removed leaving the catheter in place. 8.5 liters of clear, yellow fluid was withdrawn using a vacuum bottle. Fluid was sent for cell count and differential and culture and sensitivities. The incision site was closed with exofin. Tegaderm were applied. 250 mL of 25% Albumin was administered during the course of the procedure to treat the patient for prophylactically for potential hypotension. Estimated Blood Loss: Estimated blood loss: none. Complications: No immediate complications. Impression: - Paracentesis successfully performed. - Test results pending. Recommendation: - Discharge patient to home (ambulatory). - Return to liver clinic as previously scheduled. - Repeat paracentesis PRN for therapeutic purposes. Attending Participation: I was present for the dolan portions of this procedure and either I or my colleague was immediately available for all non-dolan portions of the procedure. Procedure Code(s): --- Professional --- 35413, Abdominal paracentesis (diagnostic or therapeutic); with imaging guidance Diagnosis Code(s): --- Professional --- K70.31, Alcoholic cirrhosis of liver with ascites R18.8, Other ascites K74.60, Unspecified cirrhosis of liver K76.6, Portal hypertension CPT copyright 2016 [employer]. All rights reserved. The codes documented in this report are preliminary and upon aligner typewriter review may be revised to meet current compliance requirements. Marla Soto PA-C 10/01/2017 2:46:34 PM This report has been signed electronically. Israel Sparrow MD Note Initiated On: 10/01/2017 1:29 PM Number of Addenda: 0 [facility] [address] [place] [address] [facility] 10/01/2017 1:29 PM CDT Marla Soto PA-C GI PROCEDURE OR DERABLES [facility] * LARGE VOLUME PARACENTESIS (09/24/2017 1:07 PM CDT) Report Endoscopy POC Endoscopy Department Report __ _ Patient Name: Domenica Rivera Procedure Date: 09/24/2017 1:07 PM Date of : 1970 Classification: Outpatient Gender: Female __ _ Providers: Marla Soto PA-C, Kellee Cox Referring MD: Procedure: Paracentesis (Repeat) Indications: Ascites, Ascites shown on ultrasound, Diagnostic to rule out peritonitis, Cirrhosis, Cirrhosis (Alcoholic), Portal hypertension Medications: 1% Lidocaine 10 mL SubQ Description of Procedure: After obtaining informed consent, the procedure was performed. Throughout the procedure, the patient's blood pressure, pulse, and oxygen saturations were monitored continuously.The paracentesis was accomplished without difficulty. The patient tolerated the procedure well. Findings: Prior to the procedure, the abdomen was examined and demonstrated significant distention with ascites and a fluid wave to be present. With the patient in a supine with head elevated position, the procedure site was sterilely prepped using chloroprep and draped in the usual fashion. 10 mL of 1% lidocaine was infiltrated into the skin and subcutaneous tissues. Using a left lower quadrant approach, a small stab incision was made with a disposable blade and a 5 inch 12 gauge paracentesis needle and cannula system was inserted into the peritoneal cavity under ultrasound guidance. Aspiration demonstrated no blood and good return of peritoneal fluid. One pass was made. The trocar was then removed leaving the catheter in place. 9 liters of clear, yellow fluid was withdrawn using a vacuum bottle. Fluid was sent for cell count and differential and culture and sensitivities. Gauze and tape were applied. 250 mL of 25% Albumin was administered during the course of the procedure to treat the patient for prophylactically for potential hypotension. Estimated Blood Loss: Estimated blood loss: none. Complications: No immediate complications. Impression: - Paracentesis successfully performed. - Test results pending. Recommendation: - Discharge patient to home (ambulatory). - Return to liver clinic as previously scheduled. - Repeat paracentesis PRN for therapeutic purposes. Attending Participation: I was present for the dolan portions of this procedure and either I or my colleague was immediately available for all non-dolan portions of the procedure. Procedure Code(s): --- Professional --- 24406, Abdominal paracentesis (diagnostic or therapeutic); with imaging guidance Diagnosis Code(s): --- Professional --- K70.31, Alcoholic cirrhosis of liver with ascites R18.8, Other ascites K74.60, Unspecified cirrhosis of liver K76.6, Portal hypertension CPT copyright 2016 [employer]. All rights reserved. The codes documented in this report are preliminary and upon aligner typewriter review may be revised to meet current compliance requirements. Marla Soto PA-C 09/24/2017 3:17:22 PM This report has been signed electronically. Kellee Cox, Note Initiated On: 09/24/2017 1:07 PM Number of Addenda: 0 [facility] [address] [place] [address] [facility] 09/24/2017 1:07 PM CDT Marla Soto PA-C GI PROCEDURE OR DERABLES [facility] * LARGE VOLUME PARACENTESIS (09/17/2017 12:35 PM CDT) Report Endoscopy POC Endoscopy Department Report __ _ Patient Name: Domenica Rivera Procedure Date: 09/17/2017 12:35 PM Date of : 1970 Classification: Outpatient Gender: Female __ _ Providers: Marla Soto PA-C, Jorge Alberto Ash MD Referring MD: Procedure: Paracentesis (Repeat) Indications: Ascites, Ascites shown on ultrasound, Diagnostic to rule out peritonitis, Cirrhosis, Cirrhosis (Alcoholic), Portal hypertension Medications: 1% Lidocaine 20 mL SubQ Description of Procedure: After obtaining informed consent, the procedure was performed. Throughout the procedure, the patient's blood pressure, pulse, and oxygen saturations were monitored continuously. The paracentesis was accomplished without difficulty. The patient tolerated the procedure well. Findings: Prior to the procedure, the abdomen was examined and demonstrated significant distention with ascites and a fluid wave to be present. With the patient in a supine with head elevated position, the procedure site was sterilely prepped using chloroprep and draped in the usual fashion. 20 mL of 1% lidocaine was infiltrated into the skin and subcutaneous tissues. Using a left lower quadrant approach, a small stab incision was made with a disposable blade and a 5 inch 12 gauge paracentesis needle and cannula system was inserted into the peritoneal cavity under ultrasound guidance. Aspiration demonstrated no blood and good return of peritoneal fluid. One pass was made. The trocar was then removed leaving the catheter in place. 9 liters of clear, yellow fluid was withdrawn using a vacuum bottle. Fluid was sent for cell count and differential and culture and sensitivities. The incision site was closed with exofin. Tegaderm were applied. 250 mL of 25% Albumin was administered during the course of the procedure to treat the patient for prophylactically for potential hypotension. Estimated Blood Loss: Estimated blood loss: none. Complications: No immediate complications. Impression: - Paracentesis successfully performed. - Test results pending. Recommendation: - Discharge patient to home (ambulatory). - Return to liver clinic as previously scheduled. - Repeat paracentesis PRN for therapeutic purposes. Attending Participation: I was present for the dolan portions of this procedure and either I or my colleague was immediately available for all non-dolan portions of the procedure. Procedure Code(s): --- Professional --- 95286, Abdominal paracentesis (diagnostic or therapeutic); with imaging guidance Diagnosis Code(s): --- Professional --- K70.31, Alcoholic cirrhosis of liver with ascites R18.8, Other ascites K74.60, Unspecified cirrhosis of liver K76.6, Portal hypertension CPT copyright 2016 [employer]. All rights reserved. The codes documented in this report are preliminary and upon aligner typewriter review may be revised to meet current compliance requirements. Marla Soto PA-C 09/17/2017 12:39:10 PM This report has been signed electronically. Jorge Alberto Ash MD Note Initiated On: 09/17/2017 12:35 PM Number of Addenda: 0 [facility] [address] [place] [address] [facility] 09/17/2017 12:3 5 PM CDT Marla Soto PA-C GI PROCEDURE OR DERABLES [facility] * CULTURE ANAEROBE (09/17/2017 9:42 AM CDT) Only the most recent of10 resultswithin the time period is included. Culture No anaerobic organisms isolated JAM 09/24/2017 8:35 AM CDT [facility] MICROBIOLOGY Microbiology ABDOMEN AND PELVIS / Unknown Collection / Unknown 09/17/2017 9:42 AM CDT 09/17/2017 10:33 AM CDT Marla Soto PA-C LAB - MICROBIOL OGY ORDERABLES [facility] MICROBIOLOGY [address] [place] [address], [facility] [phone] * CULTURE AEROBIC (08/27/2017 9:08 AM CDT) Only the most recent of9 resultswithin the time period is included. Culture Aerobic No Growth [facility] Gram Stain [facility] Comment:BOTTLES ONLY Abdominal Fluid BODY FLUID SPECIMEN / Unknown 08/27/2017 9:08 AM CDT 08/27/2017 10:18 AM CDT Narrative [facility] - 09/01/2017 3:21 PM CDT No gram stain Specimen Type->Abdominal fluid Resulting Lab: [facility] MICROBIOLOGY [address] [place] [address] PH: [phone] Marla Soto PA-C LAB - [place]CRO[place] [address], [facility] [phone] * (ABNORMAL) CELL COUNT FLUID (08/27/2017 9:08 AM CDT) Only the most recent of9 resultswithin the time period is included. Pathologist [facility] Color Fluid Yellow(A) Colorles s, Straw [facility] Clarity Fluid Hazy(A) Clear [facility] Volume Fluid 2.0 mL [facility] WBC Calculation Fluid 92 /uL [facility] RBC Calculation 387 /uL [facility] Differential Manual Differential to follow. [facility] Peritoneal dialysis fluid specimen (specimen) ([facility]) 08/27/2017 9:08 AM CDT 08/27/2017 10:19 AM CDT Narrative [facility] - 08/27/2017 11:11 AM CDT No established reference ranges for WBC and RBC body fluid count. Marla KAPOORC LAB - BODY FLUI D ORDERABLES Performing Organization Address [facility]/[place] [address], [facility] [phone] * LIPASE BODY FLUID ([facility] ONLY) (06/30/2017 3:26 PM INSTRUCTIONAL SPECIALIST) [facility] Lipase Fluid 24 Not Established For Fluids Units/L [facility] Comment:The reference range and other method performance specifications have not been established for this fluid. The test result must be integrated into the clinical context for interpretation. Peritoneal dialysis fluid specimen (specimen) PERITONEAL FLUID / Unknown 06/30/2017 3:26 PM INSTRUCTIONAL SPECIALIST 06/30/2017 3:26 PM INSTRUCTIONAL SPECIALIST Marla JONES-C LAB - [place] [address], [facility] [phone] * AMYLASE BODY FLUID ([facility] ONLY) (06/30/2017 3:26 PM INSTRUCTIONAL SPECIALIST) Amylase Fluid 24 Not Established For Fluids Units/L [facility] Comment:The reference range and other method performance specifications have not been established for this fluid. The test result must be integrated into the clinical context for interpretation. Peritoneal dialysis fluid specimen (specimen) PERITONEAL FLUID / Unknown 06/30/2017 3:26 PM INSTRUCTIONAL SPECIALIST 06/30/2017 3:26 PM INSTRUCTIONAL SPECIALIST Marla Ly Brittany PA-C LAB - BODY FLUI D ORDERABLES Performing Organization Address City/State/[facility] Co de Phone Number [address] [phone] * PROTEIN FLUID (06/30/2017 3:26 PM INSTRUCTIONAL SPECIALIST) Protein Fluid 1.2 Not Established For Fluids g/dL [facility] Comment:The reference range and other method performance specifications have not been established for this fluid. The test result must be integrated into the clinical context for interpretation. Peritoneal dialysis fluid specimen (specimen) PERITONEAL FLUID / Unknown 06/30/2017 3:26 PM INSTRUCTIONAL SPECIALIST 06/30/2017 3:26 PM INSTRUCTIONAL SPECIALIST Marla Ly MagdalenaKhushiPrema PA-C LAB - BODY FLUI D ORDERABLES Performing Organization Address [facility] Co de Phone Number [address] [phone] * ALBUMIN FLUID (06/30/2017 3:26 PM INSTRUCTIONAL SPECIALIST) Albumin Fluid 0.7 Not Established For Fluids g/dL [facility] Comment:The reference range and other method performance specifications have not been established for this fluid. The test result must be integrated into the clinical context for interpretation. Fluid specimen (specimen) PERITONEAL FLUID / Unknown 06/30/2017 3:26 PM INSTRUCTIONAL SPECIALIST 06/30/2017 3:26 PM INSTRUCTIONAL SPECIALIST Marla Ly Brittany PA-C LAB - BODY FLUI D ORDERABLES Performing Organization Address [facility] Co de Phone Number [place] [id number], [place] [phone] * HEPATITIS C GENOTYPE 1 NS5A DRUG RESISTANCE (06/30/2017 1:19 PM INSTRUCTIONAL SPECIALIST) [facility] Hepatitis C Virus NS5A Drug Resistance Comment [facility] ([facility]) Comment: HCV GenoSure(TM) NS5A Comments: NS5A RAVs at position(s) 28, 30, 31 or 93 NOT DETECTED. If considering an NS5A inhibitor-containing regimen, please refer to the prescribing information, or current guidelines, to determine the appropriate treatment regimen and duration. HCV Genotype: 1a Drug Brand/ Genotypic Generic Name Regimen Assessment Comments -------- NS5AI Daclatasvir Daklinza None/Undetermined DCV RAVs*: None Elbasvir Zepatier None/Undetermined EBR RAVs*: None Ledipasvir Harvoni None/Undetermined LDV RAVs*: None Ombitasvir Viekira Ernst None/Undetermined OBV RAVs*: None Pibrentasvir Mavyret None/Undetermined PIB RAVs*: None Velpatasvir Epclusa/ None/Undetermined Vosevi DANIEL RAVs*: None *RAVs = Resistance Associated Variants detected Summary of All Variants Observed: NS5A I8V, A25T, V37I, H54Y, T64S, R73K, V75A, R78K, K107T, R123Q, S131T, T135A, I144V, E171D, E181D, G215R, M226L, A245T, R308K, R311P, V315I, V326L, K331R, R348Q, L368V, T395A, S396P, P401S, G403I/V, V410A, Y413C, T442A Important Definitions Resistance Possible - Resistance Associated Variants (RAVs) detected that (a) represent naturally-occurring polymorphisms or treatment-emergent variants associated with reductions in sustained virologic response (SVR) rates, (b) emerge during direct-acting antiviral (DAA)-treatment or relapse, and/or (c) may confer reductions in susceptibility based on in vitro data. Refer to prescribing information for specific details regarding the impact of these variants on treatment response in defined patient populations and when administered in combination with other antiviral agents. None/Undetermined - None; no RAVs detected. Undetermined; variants detected that have a subtle or uncertain impact on DAA-treatment responses. All variants are reported relative to the HCV genotype/subtype specific reference H77. Assessment is based on a rules-based algorithm (version 6). Naturally-occurring polymorphisms may impact the emergence of resistance, leading to failure of DAA combination therapy Naturally-occurring DAA resistance-associated polymorphisms identified at baseline may impact SVR if the treatment regimen, or adherence, is suboptimal. The impact of these polymorphisms may vary in treatment-naive and treatment-experienced patients and with varying disease states (e.g. non-cirrhotic vs cirrhotic) Reduced susceptibility to any one component of a DAA-containing regimen may be overcome by the activity of the other components of the regimen and/or longer treatment duration Treatment emergent RAVs may persist for prolonged periods of time and may impact subsequent treatment regimens Hepatitis C Virus NS5A Resist Assay Interp Comment [facility] ([facility]) Comment: For more information on interpreting this report, please call [employer] at [phone] between the hours of 6:30am to 5:00pm [place] Time Thursday through Thursday. This assay is performed using a next-generation sequencing platform that analyzes the specified non-structural coding regions of HCV. Variants are reported at a sensitivity that has been demonstrated to be equivalent to that of [place]/population sequencing. Genotype assignment is determined from the sequence of the specified regions that are derived using subtype specific methodology, and should not be used to establish or confirm the HCV genotype. HCV genotype determination should only be done with an assay intended for that purpose. This assay was validated by testing samples with viral loads equal to or above 500 IU/mL and should be interpreted only on such specimens. This assay meets the standards for performance characteristics and all other design quality engineer and assurance requirements established by CLIA. The results should not be used as the sole criteria for patient management. This test was developed and its performance characteristics determined by [employer]. It has not been cleared or approved by the FDA. The results have been disclosed to you from confidential records protected by law and are not to be disclosed to unauthorized persons. Further disclosure of these results is prohibited without specific consent of the persons to whom it pertains, or as permitted by law. 06/30/2017 1:19 PM INSTRUCTIONAL SPECIALIST 06/30/2017 1:28 PM INSTRUCTIONAL SPECIALIST Narrative [facility] ([facility]) - 07/07/2017 4:20 PM INSTRUCTIONAL SPECIALIST Performed at: 01 - [facility] [address] [place] [address] [id number] Personalized Living Manager: Osmin Elizalde MD, Phone: [phone] Damian Pulido MD LAB - CHEMISTRY BOY MOREL [facility] ([facility]) [address] [place] [address] * (ABNORMAL) HEPATITIS C GENOTYPE (06/30/2017 1:19 PM INSTRUCTIONAL SPECIALIST) Hepatitis C Genotype Accession No: [id number](A) [facility] Hepatitis C Genotype Specimen: Serum(A) [facility] Hepatitis C Genotype Reference: [id number](A) [facility] Hepatitis C Genotype (A) [facility] Hepatitis C Genotype (A) [facility] Hepatitis C Genotype (A) [facility] Hepatitis C Genotype Test: Hepatitis C Genotyping(A) [facility] Hepatitis C Genotype (A) [facility] Hepatitis C Genotype (A) [facility] Hepatitis C Genotype RESULT(A) [facility] Hepatitis C Genotype Genotype 1a(A) [facility] Hepatitis C Genotype (A) [facility] Hepatitis C Genotype Reference Range(A) [facility] Hepatitis C Genotype Not Detected(A) [facility] Hepatitis C Genotype (A) [facility] Hepatitis C Genotype INTERPRETATION(A) [facility] Hepatitis C Genotype The Hepatitis C genotype RT-PCR determination was performed(A) [facility] Hepatitis C Genotype on a serum sample. Genotype identification was successful.(A) [facility] Hepatitis C Genotype (A) [facility] Hepatitis C Genotype COMMENT(A) [facility] Hepatitis C Genotype The Flores RealTime HCV Genotype II is intended for use as(A) [facility] Hepatitis C Genotype an aid in the management of HCV-infected individuals and in(A) [facility] Hepatitis C Genotype guiding the selection of therapeutic treatment indicated for(A) [facility] Hepatitis C Genotype genotypes 1, 1a, 1b, and 2-5. The assay is intended for use(A) [facility] Hepatitis C Genotype on patients who are chronically infected with HCV, are being(A) [facility] Hepatitis C Genotype considered for antiviral treatment, and are positive for HCV(A) [facility] Hepatitis C Genotype RNA.(A) [facility] Hepatitis C Genotype (A) [facility] Hepatitis C Genotype The analytical sensitivity of the assay is 500 IU/ml. While(A) [facility] Hepatitis C Genotype the genotype assay is qualitative, testing cannot be(A) [facility] Hepatitis C Genotype reliably performed on samples with less than 500 IU/ml HCV.(A) [facility] Hepatitis C Genotype (A) [facility] Hepatitis C Genotype The detection of HCV RNA in serum is based on the isolation(A) [facility] Hepatitis C Genotype of HCV RNA with reverse division chair of genomic HCV RNA(A) [facility] Hepatitis C Genotype followed by real-time PCR in the presence of an unrelated(A) [facility] Hepatitis C Genotype RNA internal control. The internal control ensures that RNA(A) [facility] Hepatitis C Genotype is isolated, and that no general significant inhibitors of(A) [facility] Hepatitis C Genotype the RT-PCR process are present. Genotype specific probes(A) [facility] Hepatitis C Genotype allow differentiation of genotype.(A) [facility] Hepatitis C Genotype (A) [facility] Hepatitis C Genotype This analysis was performed using an [place] FDA approved test(A) [facility] Hepatitis C Genotype methodology (Flores RealTime HCV Genotype II).(A) [facility] Hepatitis C Genotype (A) [facility] Hepatitis C Genotype (A) [facility] Hepatitis C Genotype (A) [facility] Hepatitis C Genotype (A) [facility] Hepatitis C Genotype Test performed at [facility](A) [facility] Hepatitis C Genotype Laboratories, [address] [place] [id number](A) [facility] Hepatitis C Genotype (A) [facility] Hepatitis C Genotype (A) [facility] Hepatitis C Genotype (A) [facility] Hepatitis C Genotype This case has been personally reviewed and interpreted by(A) [facility] Hepatitis C Genotype the attending (teaching) pathologist.(A) [facility] Hepatitis C Genotype (A) [facility] Hepatitis C Genotype (A) [facility] Hepatitis C Genotype Final Diagnosis performed by Nasim Bonds PHD.(A) [facility] Hepatitis C Genotype Electronically signed 07/15/2017(A) [facility] Blood specimen (specimen) 06/30/2017 1:19 PM INSTRUCTIONAL SPECIALIST 06/30/2017 1:29 PM INSTRUCTIONAL SPECIALIST Damian Pulido MD LAB - CHEMISTRY BOY MOREL [facility] [address] [phone] * CERULOPLASMIN (06/30/2017 1:19 PM INSTRUCTIONAL SPECIALIST) Ceruloplasmin 28 20 - 60 mg/dL [facility] Blood specimen (specimen) BLOOD SPECIMEN / Unknown 06/30/2017 1:19 PM INSTRUCTIONAL SPECIALIST 06/30/2017 1:30 PM INSTRUCTIONAL SPECIALIST Damian Pulido MD LAB - CHEMISTRY BOY MOREL Performing Organization Address [facility]/ZIP Co de Phone Number [facility] [address] [place] [address] * HEPATITIS B SURFACE ANTIBODY (06/30/2017 1:19 PM INSTRUCTIONAL SPECIALIST) Hepatitis B Virus Surface Antibody Non-react shady Non-react shady [facility] Comment: < 8 mIU/mL Hepatitis B surface Antibody (HBsAb). Nonreactive for HBsAb - individual is considered not immune to Hepatitis B Virus infection. Hepatitis B Surface Antibody Quantitative 1.9 <8.0 mIU/mL [facility] Comment: Hepatitis B Surface Antibody Numeric Result Interpretation: Nonreactive: <8.0 mIU/mL Indeterminate: 8.0 - 12.0 mIU/mL Reactive: >12.0 mIU/mL Blood specimen (specimen) BLOOD SPECIMEN / Unknown 06/30/2017 1:19 PM INSTRUCTIONAL SPECIALIST 06/30/2017 1:30 PM INSTRUCTIONAL SPECIALIST Damian Pulido MD LAB - CHEMISTRY BOY MOREL Performing Organization Address [facility]/ZIP Co de Phone Number [address] [phone] * TSH (06/30/2017 1:19 PM INSTRUCTIONAL SPECIALIST) Pathologist [facility] TSH 2.944 0.350 - 4.940 uIU/mL [facility] Blood specimen (specimen) BLOOD SPECIMEN / Unknown 06/30/2017 1:19 PM INSTRUCTIONAL SPECIALIST 06/30/2017 1:28 PM INSTRUCTIONAL SPECIALIST Damian Pulido MD LAB - CHEMISTRY BOY MOREL Performing Organization Address [facility] Co de Phone Number [address] [phone] * MITOCHONDRIAL ANTIBODY SCREEN (06/30/2017 1:19 PM INSTRUCTIONAL SPECIALIST) [facility] Mitochondrial M2 Antibody 7.1 0.0 - 20.0 Units [facility] Comment: Mitochondrial M2 Antibody Numeric Result Interpretation: <20.1 Units: Negative 20.1 - 24.9 Units: Equivocal >24.9 Units: Positive Blood specimen (specimen) BLOOD SPECIMEN / Unknown 06/30/2017 1:19 PM INSTRUCTIONAL SPECIALIST 06/30/2017 1:29 PM INSTRUCTIONAL SPECIALIST Damian Pulido MD LAB - CHEMISTRY BOY MOREL Performing Organization Address [facility] Co de Phone Number [address] [phone] * [id number] BLOOD PHENOTYPING PANEL (06/30/2017 1:19 PM INSTRUCTIONAL SPECIALIST) Pathologist [facility] Lwrod-0-Ooljvuseyh n 146 90 - 200 mg/dL [facility] ([facility]) Phenotype (PI) MM [facility] ([facility]) Comment: Phenotype Population A-1-AT Concentration Incidence % Reference Interval MM 86.5% 96 - 189 MS 8.0% 83 - 161 MZ 3.9% 60 - 111 FM 0.4% 93 - 191 SZ 0.3% 42 - 75 SS 0.1% 62 - 119 ZZ 0.05% 16 - 38 FS 0.05% 70 - 128 FZ Unknown 44 - 88 FF Unknown Unknown Blood specimen (specimen) BLOOD SPECIMEN / Unknown 06/30/2017 1:19 PM INSTRUCTIONAL SPECIALIST 06/30/2017 1:29 PM INSTRUCTIONAL SPECIALIST Narrative [facility] ([facility]) - 07/03/2017 4:20 PM INSTRUCTIONAL SPECIALIST Performed at: [address] [id number] Personalized Living Manager: Jameson Durant PhD, Phone: [phone] Performed at: [address] [id number] Personalized Living Manager: Rickey Weber MD, Phone: [phone] Damian Pulido MD LAB - CHEMISTRY BOY MOREL Performing Organization Address [facility]/ZIP Co de Phone Number [facility] ([facility]) [address] [place] [address] * WANDA BLOOD SCREEN W/REFLEX TITER (06/30/2017 1:19 PM INSTRUCTIONAL SPECIALIST) WANDA IFA Negative [facility] ([facility]) Comment: Negative <1:80 Borderline 1:80 Positive >1:80 Blood specimen (specimen) BLOOD SPECIMEN / Unknown 06/30/2017 1:19 PM INSTRUCTIONAL SPECIALIST 06/30/2017 1:29 PM INSTRUCTIONAL SPECIALIST Narrative [facility] ([facility]) - 07/01/2017 3:16 PM INSTRUCTIONAL SPECIALIST Performed at: [address] [id number] Personalized Living Manager: Jameson Durant PhD, Phone: [phone] Damian Pulido MD LAB - CHEMISTRY BOY MOREL Performing Organization Address City/[facility]/ZIP Co de Phone Number [facility] ([facility]) [address] [place] [address] * HEPATITIS BE ANTIGEN (06/30/2017 1:19 PM INSTRUCTIONAL SPECIALIST) Hepatitis Be Antigen Negative Negative [facility] ([facility]) Blood specimen (specimen) BLOOD SPECIMEN / Unknown 06/30/2017 1:19 PM INSTRUCTIONAL SPECIALIST 06/30/2017 1:29 PM INSTRUCTIONAL SPECIALIST Narrative [facility] ([facility]) - 07/01/2017 10:14 AM INSTRUCTIONAL SPECIALIST Performed at: [address] [id number] Personalized Living Manager: Jameson Durant PhD, Phone: [phone] Damian Pulido MD LAB - CHEMISTRY BOY MOREL Performing Organization Address City/[facility]/ZIP Co de Phone Number [facility] ([facility]) [address] [place] [address] * (ABNORMAL) SMOOTH MUSCLE ANTIBODY (06/30/2017 1:19 PM INSTRUCTIONAL SPECIALIST) Pathologist [facility] F-Actin Antibody IgG 38.1(H) 0.0 - 19.9 Units [facility] Comment: F-Actin Antibody Numeric Result Interpretation: <20.0 Units: Negative 20.0 - 30.0 Units: Weak Positive >30.0 Units: Moderate to Strong Positive Blood specimen (specimen) BLOOD SPECIMEN / Unknown 06/30/2017 1:19 PM INSTRUCTIONAL SPECIALIST 06/30/2017 1:29 PM INSTRUCTIONAL SPECIALIST Damian Pulido MD LAB - SEROLOGY ORDER LEXEI Performing Organization Address [facility] Co de Phone Number [address] [phone] * HEPATITIS BE ANTIBODY (06/30/2017 1:19 PM INSTRUCTIONAL SPECIALIST) Pathologist [facility] Hepatitis Be Antibody Negative Negative [facility] Blood specimen (specimen) BLOOD SPECIMEN / Unknown 06/30/2017 1:19 PM INSTRUCTIONAL SPECIALIST 06/30/2017 1:29 PM INSTRUCTIONAL SPECIALIST Narrative [facility] ([facility]) - 07/01/2017 3:16 PM INSTRUCTIONAL SPECIALIST Performed at: [address] [id number] Personalized Living Manager: Jameson Durant PhD, Phone: [phone] Damian Pulido MD LAB - CHEMISTRY BOY MOREL Performing Organization Address City/[facility]/ZIP Co de Phone Number [facility] ([facility]) [address] [place] [address], [facility] * (ABNORMAL) HEPATITIS A ANTIBODY (06/30/2017 1:19 PM INSTRUCTIONAL SPECIALIST) Pathologist [facility] Hepatitis A Virus Antibody Total Positive(A ) Negative [facility] ([facility]) Blood specimen (specimen) 06/30/2017 1:19 PM INSTRUCTIONAL SPECIALIST 06/30/2017 1:30 PM INSTRUCTIONAL SPECIALIST Narrative [facility] ([facility]) - 07/01/2017 10:14 AM INSTRUCTIONAL SPECIALIST Performed at: - [facility] [address] [place], [place] [id number] Personalized Living Manager: Jameson Durant PhD, Phone: [phone] Damian Pulido MD LAB - CHEMISTRY [facility] ([facility]) [address] [place] [address], [facility] * CYTOLOGY NON-SLIVER LAP TENDER PANEL (STL) (06/30/2016 2:55 PM INSTRUCTIONAL SPECIALIST) Pathologist [facility] Non-Aircraft Accessories Mechanic Accession No: [id number] Reference: [id number] Specimen: Peritoneal Fluid Clinical History: ASCITES Gross Description: 1,000 CC CLEAR YELLOW FLUID Preparation Method: 1 Diff-Quik stained smears, 1 Pap stained smears, 1 Pap stained Cytospin slide, 1 Cell Block SPECIMEN ADEQUACY: Adequate for evaluation FINAL DIAGNOSIS: Peritoneal fluid, paracentesis, cytology: -Negative for malignancy MICROSCOPIC DESCRIPTION: Review of 1 pap and 1 diff quik slides and 1 pap cytospin slide reveals mesothelial cells and inflammatory cells. A cell block reveals reactive mesothelial cells and rare inflammatory cells. . No evidence of malignancy is seen. ES/EDUARDO COMMENT(S): This case has been personally reviewed and interpreted by the attending (teaching) pathologist. Initial Evaluation performed by Greta PRATT (ASCP). Electronically signed 07/01/2017 Final Diagnosis performed by Jim Gillespie MD. Electronically signed 07/02/2017 [facility] Peritoneal dialysis fluid specimen (specimen) 06/30/2016 2:55 PM INSTRUCTIONAL SPECIALIST 07/01/2017 7:15 AM INSTRUCTIONAL SPECIALIST Narrative [facility] - 07/02/2017 11:27 AM INSTRUCTIONAL SPECIALIST Diagnosis->ascites Specimen Type->Peritoneal fluid Authorizing Provider Result Corwin Soto PA-C LAB - PATHOLOGY /CYTOLOGY ORDERABLES [facility] [address] [phone] Care Teams Survey Research Analyst Relationship Specialty Start Date End Date Damian Almaguer MD [address] [place] [phone] PCP - General 10/08/22 Stefanie Arechiga, RN Returned Case Inspector 08/04/18
--- OUTSIDE RECORDS SUMMARY | 2024-08-11 13:17 | XMS_ITS | Encounter Summary ---
Author Organization [facility] Address [facility] [place] [address] Care Team Providers Care Licensing Representative Name Role Phone Damian Mcneal MD Primary Care Provider Encounter Details Date Type Department Care Team (Late st Contact Info) Description 08/10/2024 3:45 PM [facility] Hospital Encounter [facility] [address] [place] [address] Damian Mcneal MD [address] [place] [phone] Arrived Social History Tobacco Use Types Packs/Day Years [...] How often do you attend chur or restoration services? More than 4 times per year 01/06/2023 Do you belong to any clubs o r organizations such as episcopal groups, unions, fraternal or athletic groups, or [...] move on to questions 3-9 0 02/14/2022 [facility] - Occupational Stress Questionnaire Answer Date Recorded [...] place to sleep or slept in a correction (including now)? No 01/06/2023 Comments No Sex and Gender Information Value Date Recorded Sex Assigned at Female 01/06/2023 7:39 PM CDT Legal Sex Female 9:18 PM PHLEBOTOMY SUPPORT TECH Gender Identity Female 01/06/2023 7:39 PM CDT Sexual Orientation Straight 01/06/2023 7: 39 PM CDT documented as of this encounter Functional Status * Are you deaf or do you have serious difficulty hearing Answer Date of Assessment Author Status No 01/06/2023 7:48 PM CDT Dorcas Delcid RN Active * Are you [...] Assessment Author Status No 01/06/2023 7:48 PM CDT Dorcas Delcid RN Active documented as of this encounter Mental Status * Because of a physical, mental, or emotional condition, do you have serious difficulty concentrating, remembering, or making decisions? Answer Entry Date Author Status No 01/06/2023 7:48 PM Dorcas Boswell RN Active documented in this encounter Plan of Treatment Not on file documented as of this encounter Goals Goal Patient Goal Type Associated Problems Recent Progress Patient-Stated? Author Safety Patient/family will have appropriate support at home upon discharge Lifestyle No Jessa Gore RN documented as of this encounter Procedures Procedure Name Priority Date/Time Associated Diagnosis Comments XR CHEST PA+LAT Routine 08/10/2024 3:58 PM PHLEBOTOMY SUPPORT TECH Acute bronchitis documented in this encounter Results * XR CHEST PA+LAT (08/10/2024 3:58 PM PHLEBOTOMY SUPPORT TECH) Anatomical Region Laterality Modality Chest Radiographic Harmony ging 08/10/2024 4:00 PM PHLEBOTOMY SUPPORT TECH Impressions 08/10/2024 4:06 PM PHLEBOTOMY SUPPORT TECH IMPRESSION: New diffuse bilateral pulmonary infiltrates-pneumonia versus pulmonary edema. No consolidation. Clinical correlation required. Ordered By: DAMIAN MCNEAL Interpreted By: Archie Mcneill MD, 08/10/2024 4:00 PM Narrative 08/10/2024 4:06 PM PHLEBOTOMY SUPPORT TECH [address] [place] [address] Examination: Two-view chest Exam time: 1536 hours. [...] Procedure Note Archie Mcneill MD - 08/10/2024 [place] [id number] [place] [address] Examination: Two-view chest Exam time: 1536 hours. [...] Mcneal MD GENERAL IMAGING Final Resul t documented in this encounter Visit Diagnoses Diagnosis Acute bronchitis documented in this encounter Care Teams Licensing Representative Relationship Specialty Start Date End Date Damian Mcneal MD [address] [place] [phone] PCP - General FAMILY PRACTICE 09/27/20 documented as of this encounter
--- NOTE | 2024-08-11 14:01 | PC.NURSE ---
[facility]
--- NOTE | 2024-08-11 14:02 | PC.NURSE ---
0920 DAUGHTER CALLED TO ASK ABOUT PROCESS AND WANTS TO BE INFORMED WHEN HER MOTHER IS TAKEN BY [facility]
--- NOTE | 2024-08-11 14:31 | PC.NURSE ---
1400 ANGELITO THE DAUGHTER NOTIFIED OF HER MOTHER HAS BEEN TAKEN TO [facility]
== END 2024-08-11 14:00 | disposition expired ==
PROVIDERS: Emergency Provider Emergency Medicine; PCP Family Medicine
DX: I46.9 Cardiac arrest, cause unspecified (principal); E11.9 Type 2 diabetes mellitus without complications
CPT/HCPCS: 92950; 96374; 96375; 99285; J0171